=== PATIENT | female | born 1950 | race Caucasian/White ===

== ENCOUNTER 2020-01-09 15:19 | Outpatient (CLI) | payer MEDICARE, SELFPAY ==
--- NOTE | ~2020-01-09 | XR_ITS ---
EXAMINATION: XR knee RT 3V EXAM DATE: 01/09/2020 15:42 INDICATION: Diffuse right knee pain since Thursday, unable to bear weight. TECHNIQUE: Right knee frontal, crosstable lateral, orthogonal oblique projections for interpretation . Comparison is made to prior examination from 04/24/2016. FINDINGS: There is severe right patellofemoral compartment, moderate tibiofemoral compartment primar y osteoarthritis. There are no acute fractures or dislocations identified. There is no subcutaneous gas. Small joint effusion. There are no radiopaque foreign bodies. IMPRESSION: 1. Right knee exam without acute osseous findings. 2. Osteoarthritis. Reviewed, dictated and finalized at location A.
== END 2020-01-09 15:20 | disposition home or self-care (01) ==
LOC: CHSIMG 15:20
PROVIDERS: PCP Family Medicine; Visit Provider Family Medicine
DX: M25.561 Pain in right knee (principal)
CPT/HCPCS: 73562

== ENCOUNTER 2020-02-20 13:45 | Emergency (ER) | payer MEDICARE, SELFPAY ==
[2020-02-20 14:04] VITALS: BP 164/88; PULSE 74; RESP 14; O2SAT 96
--- NOTE | 2020-02-20 14:08 | ED.WOUNDLAC ---
HPI - Wound/Laceration General Chief Complaint: Wound/Laceration Stated Complaint: cut r foot Time Seen by Provider: 02/20/20 14:04 Source: patient and RN notes reviewed Mode of arrival: ambulatory Limitations: no limitations History of Present Illness Onset (ago): day(s) (1) Extremity Location: Right: foot Place: outdoors Patient tetanus UTD: Yes Context: accidental Associated symptoms: pain Treatments prior to arrival: bandage Related Data Home Medications Medication Instructions Recorded Confirmed buspirone 10 mg tablet 10 mg PO TID 10/25/19 02/20/20 duloxetine 60 mg capsule,delayed 120 mg PO DAILY cap 10/25/19 02/20/20 release omeprazole 20 mg capsule,delayed 20 mg PO BID 10/25/19 02/20/20 release Allergies Allergy/AdvReac Type Severity Reaction Status Date / Time Sulfa (Sulfonamide Allergy Unknown Unknown Verified 01/09/20 12:05 Antibiotics) Review of Systems Review of Systems: All systems reviewed & are unremarkable except as noted in HPI and below PMFSH Past Medical History Medical History Depression GERD (gastroesophageal reflux disease) History of peptic ulcer Hyperlipidemia Hypertension Iron deficiency anemia Low vitamin D level Osteoporosis Overweight Prediabetes Surgical History Surgical History History of hysterectomy 1986 History of knee replacement Left Knee December 2013 Family History Family History Mother Family history of hypercholesterolemia Hypertension Family history of cardiovascular disease Sibling Family history of blood dyscrasia Social History Social History Smoking status: Never smoker Alcohol intake: never Exam Const: General: healthy appearing, no acute distress and alert Nutritional Appearance: well nourished Orientation/consciousness: patient oriented x3 HENMT: Head: normal to inspection Ears: external ears normal General nose exam: Normal external nose present Face and sinus: normal facial exam Mouth: Yes lip normal Eyes: Conjunctivae: conjunctivae normal Pupils: Equal, round and reactive pupils present EOM: EOMs intact bilaterally Neck: Neck: normal visual inspection Resp: Effort & Inspection: normal respiratory effort Auscultation: clear to auscultation bilaterally Cardio: Rate: regular rate Rhythm: regular rhythm GI: Auscultation: normal bowel sounds Back/Spine/Pelvis: Cervical Spine: cervical ROM normal Thoracic/Lumbar Spine: thoraco-lumbar ROM normal Skin: Wounds: wounds noted laceration right mid foot size (2 cm); no drainage and without any surrounding erythema Neuro: General: patient oriented x3, moves all extremities and no focal motor deficits Speech: normal speech Gait exam (Neuro): Normal gait present Extrem: General: normal to inspection Psych: Appearance: grossly normal and well kempt Mental Status: mental status grossly normal Attitude: cooperative Thought content: Yes Normal thought content present Course Course Emergency Course: I advised patient that the wound could not be closed since it is more than 6 hours old. I did gently place a half-inch Steri-Strips across the wound. The wound was not completely close. This allows for drainage and washing. Discharge Plan Discharge Prescriptions: No Action omeprazole 20 mg capsule,delayed release(DR/EC) 20 mg PO BID RF: 0 buspirone 10 mg tablet 10 mg PO TID RF: 0 duloxetine [Cymbalta] 60 mg capsule,delayed release(DR/EC) 120 mg PO DAILY RF: 0 hydrocodone-acetaminophen [[place]] 5-325 mg tablet 1 tablet PO Q8H PRN (Reason: pain) Qty: 15 RF: 0 fluticasone propionate 50 mcg/actuation spray,suspension 1 spray NASAL DAILY Qty: 15.8 RF: 3 lisinopril-hydrochlorothiazide 20-25 mg tablet 1 tablet PO DAILY Qty: 90 RF:
[2020-02-20 14:28] VITALS: RESP 20
== END 2020-02-20 14:29 | disposition home or self-care (01) ==
PROVIDERS: Emergency Provider Emergency Medicine; PCP Family Medicine
DX: S91.312A Laceration without foreign body, left foot, initial encounter (principal); W45.8XXA Other foreign body or object entering through skin, initial encounter
CPT/HCPCS: 99282

== ENCOUNTER 2020-05-07 14:29 | Outpatient (CLI) | payer MEDICARE, SELFPAY ==
[2020-05-07 14:54] LABS: Basophils Absolute Auto 0.06 K/mm3 (0.00-0.10); Basophils Percent Auto 0.7 % (0.0-1.0); Eosinophils Absolute Auto 0.51 K/mm3 (0.02-0.50); Eosinophils Percent Auto 5.7 % (1.0-6.0); Hematocrit 41.2 % (35.0-42.0); Immature Granulocyte Absolute 0.05 K/mm3 (0.00-0.00); Immature Granulocyte Percent A 0.6 % (0.0-0.0); Lymphocytes Absolute Auto 3.16 K/mm3 (1.10-4.50); Lymphocytes Percent Auto 35.5 % (18.0-42.0); Mean Corpuscular Hemoglobin 32.2 pg (27.0-31.0); Mean Corpuscular Volume 94.7 fL (78.0-102.0); Mean Platelet Volume 9.4 fl (9.2-11.8); Monocytes Absolute Auto 0.87 K/mm3 (0.10-0.90); Monocytes Percent Auto 9.8 % (2.0-11.0); Neutrophils Absolute Auto 4.3 K/mm3 (1.7-7.2); Neutrophils Percent Auto 47.7 % (50.0-70.0); Platelet Count Result 417 K/mm3 (150-420); Red Blood Count 4.35 M/mm3 (4.20-5.40); Red Cell Distribution Width 11.6 % (11.6-14.4); White Blood Count 8.9 K/mm3 (4.8-10.8)
[2020-05-07 14:55] LABS: Add Urine Microscopic? YES; Appearance Urine Clear (Clear); Bilirubin Urine Negative (Negative); Blood Urine Negative (Negative); Color Urine Yellow (Yellow); Glucose Urine UA Negative (Negative); Ketones Urine Negative (Negative); Leukocyte Esterase Ur 1+ (Negative); Nitrate Urine Negative (Negative); Protein Urine Negative (Negative); Urobilinogen Urine 0.2 mg/dL (0.2-1.0); pH Urine 5.5 (5.0-8.0)
[2020-05-07 15:09] LABS: RBC Urine 0-2 /hpf (0-2); WBC Urine 16-20 /hpf (0-3)
[2020-05-07 15:10] LABS: Bacteria Urine 1+ /hpf; Squamous Epithelial Cell Urine Few /hpf (Few)
[2020-05-07 15:42] LABS: Alanine Aminotransferase 34 U/L (14-59); Albumin Level 3.8 g/dL (3.4-5.0); Alkaline Phosphatase 177 U/L (46-116); Anion Gap 8 mmol/L (8-16); Aspartate Amino Transferase 19 U/L (15-37); Bilirubin,Total 0.3 mg/dL (0.00-1.00); Blood Urea Nitrogen 39 mg/dL (7-18); Calcium 9.5 mg/dL (8.5-10.1); Carbon Dioxide 29 mmol/L (21-32); Chloride 102 mmol/L (98-108); Estimated Glomerular Filt Rate 53; Glucose 83 mg/dL (70-99); Osmolality Calculated 296 mOsm/kg (285-295); Potassium 4.7 mmol/L (3.5-5.1); Sodium 139 mmol/L (136-145); Total Protein 7.3 g/dL (6.4-8.2)
== END 2020-05-07 14:30 | disposition home or self-care (01) ==
LOC: CHSLAB 14:34
PROVIDERS: PCP Family Medicine
DX: K21.9 Gastro-esophageal reflux disease without esophagitis (principal); E78.00 Pure hypercholesterolemia, unspecified; E78.5 Hyperlipidemia, unspecified; I10 Essential (primary) hypertension; E61.1 Iron deficiency; E53.8 Deficiency of other specified B group vitamins; E66.9 Obesity, unspecified; M85.80 Other specified disorders of bone density and structure, unspecified site; M81.0 Age-related osteoporosis without current pathological fracture; Z01.812 Encounter for preprocedural laboratory examination; R73.03 Prediabetes; E55.9 Vitamin D deficiency, unspecified
CPT/HCPCS: 36415; 80053; 81001; 85025

== ENCOUNTER 2020-05-25 10:20 | Outpatient (CLI) | payer MEDICARE, SELFPAY ==
[2020-05-26 18:02] LABS: SARS-CoV-2 RNA PCR Negative
== END 2020-05-25 10:21 | disposition home or self-care (01) ==
PROVIDERS: PCP Family Medicine
DX: Z20.828 Contact with and (suspected) exposure to other viral communicable diseases (principal)
CPT/HCPCS: 87635; C9803; U0003

== ENCOUNTER 2020-06-18 09:44 | Outpatient (CLI) | payer MEDICARE, SELFPAY ==
[2020-06-18 09:58] LABS: Hematocrit 38.8 % (35.0-42.0); Mean Corpuscular HGB Conc 33.5 g/dL (32.0-36.0); Mean Corpuscular Hemoglobin 31.3 pg (27.0-31.0); Mean Corpuscular Volume 93.3 fL (78.0-102.0); Mean Platelet Volume 8.9 fl (9.2-11.8); Platelet Count Result 500 K/mm3 (150-420); Red Blood Count 4.16 M/mm3 (4.20-5.40); White Blood Count 8.7 K/mm3 (4.8-10.8)
[2020-06-18 10:53] LABS: Alanine Aminotransferase 35 U/L (14-59); Albumin Level 3.8 g/dL (3.4-5.0); Alkaline Phosphatase 132 U/L (46-116); Anion Gap 13 mmol/L (8-16); Aspartate Amino Transferase 16 U/L (15-37); Bilirubin,Total 0.3 mg/dL (0.00-1.00); Blood Urea Nitrogen 20 mg/dL (7-18); Calcium 9.3 mg/dL (8.5-10.1); Carbon Dioxide 23 mmol/L (21-32); Chloride 105 mmol/L (98-108); Estimated Glomerular Filt Rate > 60; Ferritin 94 ng/mL (8-252); Glucose 103 mg/dL (70-99); Osmolality Calculated 294 mOsm/kg (285-295); Potassium 3.9 mmol/L (3.5-5.1); Sodium 141 mmol/L (136-145); Total Protein 6.8 g/dL (6.4-8.2); Vitamin B12 1508 pg/mL (193-986)
[2020-06-18 10:54] LABS: Folic Acid > 20.0 ng/mL (8.6->20)
== END 2020-06-18 09:45 | disposition home or self-care (01) ==
LOC: CHSLAB 09:49
PROVIDERS: PCP Family Medicine; Visit Provider Family Medicine
DX: Z98.84 Bariatric surgery status (principal); Z09 Encounter for follow-up examination after completed treatment for conditions other than malignant neoplasm; E61.1 Iron deficiency; I10 Essential (primary) hypertension
CPT/HCPCS: 36415; 80053; 82607; 82728; 82746; 85027

== ENCOUNTER 2020-08-31 12:42 | Emergency (ER) | payer MEDICARE, SELFPAY ==
--- NOTE | ~2020-08-31 | CT_ITS ---
EXAMINATION: CT abdomen pelvis w con DATE: 08/31/2020 15:09 INDICATION: Abdominal pain for 3 months post gastric bypass surgery. Hematuria. TECHNIQUE: Computed tomography (CT) of the abdomen and pelvis was performed with 100 cc Omnipaque 350 intravenous contrast. Automated exposure control and iterative reconstruction technique were employe d. Exam dose: 820.74 mGy-cm total exam DLP. COMPARISON: 02/17/2019 CT abdomen pelvis FINDINGS: The lung bases are clear of infiltrate or consolidation. Heart size is within normal range. There is no pericardial or pleural effusion. Noxp-yo-[id number] size hiatal hernia. There is fluid distention of the distal esophagus with circumfer ential esophageal wall soft tissue thickening suggesting esophagitis. No hepatic space-occupying mass lesion is evident. The gallbladder is distended, with nonuniform bord leonardo thickening and mild nodularity of the gallbladder wall. No pericholecystic fluid or fat strand ing. Consider gallbladder ultrasound for more definitive evaluation of the gallbladder. Normal splenic size. No pancreatic mass lesion or ductal dilatation. No bile duct dilatation. Normal morphology of the adrenal glands. No renal space occupying mass lesion is detected. No urinary tract calculus or hydroureteronephrosis. Normal caliber of the abdominal aorta. No intraperitoneal or retroperitoneal or pelvic mass lesion or adenopathy or ascites. Postoperative change from gastric bypass surgery. There are multiple transverse and particularly descending and sigmoid colonic diverticula; no CT evid ence of diverticulitis. No bowel obstruction, bowel wall thickening, pneumatosis or intraperitoneal f ree air. Small fat-containing umbilical hernia. Status post hysterectomy. There is apparent mucosal enhancement of the urinary bladder; consider cyst itis. Recommend correlation with urinalysis. No intraluminal filling defect of the urinary bladder is evident. Chronic mild L1 compression fracture deformity. Degenerative changes apophyseal joints with associated grade 1 minimal anterolisthesis at L4-5. Posterior spinal process fusion at L4-5. IMPRESSION: Modified sized hiatal hernia Fluid distended distal esophagus with circumferential esophageal wall soft tissue thickening suggesti ng esophagitis Distended gallbladder with borderline patchy soft tissue thickening and nodularity of the gallbladder wall. Consider gallbladder ultrasound examination Status post gastric bypass surgery Status post hysterectomy Mucosal enhancement of the urinary bladder suggesting cystitis; consider correlation with urinalysis Diverticulosis of the colon; no CT evidence of diverticulitis Reviewed, dictated and finalized at Location A. Reviewed, dictated and finalized at location B. SURVEY TECHNICIAN IMPRESSION: Modified sized hiatal hernia Fluid distended distal esophagus with circumferential esophageal wall soft tiss ue thickening suggesting esophagitis Distended gallbladder with borderline patchy soft tissue thickening and nodular ity of the gallbladder wall. Consider gallbladder ultrasound examination Status post gastric bypass surgery Status post hysterectomy Mucosal enhancement of the urinary bladder suggesting cystitis; consider correl ation with urinalysis Diverticulosis of the colon; no CT evidence of diverticulitis
[2020-08-31 12:50] VITALS: BP 161/70; PULSE 74; RESP 16; TEMP 36.6; O2SAT 97
--- NOTE | 2020-08-31 13:47 | ECG_ITS ---
Measurements Intervals [place] Rate: 72 P: 49 GA: 144 QRS: -26 QRSD: 88 T: 60 QT: 307 QTc: 336 Interpretive Statements SINUS RHYTHM DELAYED PRECORDIAL R/S TRANSITION NONSPECIFIC ST & T-WAVE ABNORMALITY- INF/HIGH LAT LEADS BASELINE ARTIFACT- II, III, AVF BORDERLINE ECG Electronically Signed On 08-31-2020 14:24:17 SERVICENOW ADMINISTRATOR DEVELOPER by Chad Hu D.O.
[2020-08-31] MEDS: MAG HYDROX/ALUMINUM HYD/SIMETH 30 ML, PHENobarb/HYOSCY/ATROPINE/SCOP 32.4 MG, LIDOCAINE... PO (14:06)
[2020-08-31 14:09] LABS: Add Urine Microscopic? YES; Appearance Urine Cloudy (Clear); Bilirubin Urine 1+ (Negative); Blood Urine 1+ (Negative); Color Urine Yellow (Yellow); Glucose Urine UA Negative (Negative); Ketones Urine 3+ (Negative); Leukocyte Esterase Ur 2+ LEU/UL (Negative); Nitrate Urine Positive (Negative); Protein Urine 2+ (Negative); Specific Grav Ur >= 1.030 (1.010-1.020); pH Urine 6.5 (5.0-8.0)
[2020-08-31] MEDS: DEXTROSE 5%/0.9% SOD CHL 1,000 ML 1000 ML IV CONT (14:10)
[2020-08-31 14:12] LABS: WBC Urine >75 /hpf (0-3)
[2020-08-31 14:13] LABS: Bacteria Urine Trace /hpf; Squamous Epithelial Cell Urine Few /hpf (Few)
[2020-08-31 14:24] LABS: Basophils Absolute Auto 0.05 K/mm3 (0.00-0.10); Basophils Percent Auto 0.5 % (0.0-1.0); Eosinophils Absolute Auto 0.37 K/mm3 (0.02-0.50); Eosinophils Percent Auto 3.4 % (1.0-6.0); Hematocrit 42.5 % (35.0-42.0); Hemoglobin 14.6 g/dL (11.7-13.8); Immature Granulocyte Absolute 0.02 K/mm3 (0.00-0.00); Immature Granulocyte Percent A 0.2 % (0.0-0.0); Lymphocytes Absolute Auto 4.06 K/mm3 (1.10-4.50); Lymphocytes Percent Auto 36.8 % (18.0-42.0); Mean Corpuscular HGB Conc 34.4 g/dL (32.0-36.0); Mean Corpuscular Hemoglobin 31.4 pg (27.0-31.0); Mean Corpuscular Volume 91.4 fL (78.0-102.0); Mean Platelet Volume 10.2 fl (9.2-11.8); Monocytes Absolute Auto 0.76 K/mm3 (0.10-0.90); Monocytes Percent Auto 6.9 % (2.0-11.0); Neutrophils Absolute Auto 5.8 K/mm3 (1.7-7.2); Neutrophils Percent Auto 52.2 % (50.0-70.0); Platelet Count Result 321 K/mm3 (150-420); Red Blood Count 4.65 M/mm3 (4.20-5.40); Red Cell Distribution Width 11.9 % (11.6-14.4)
[2020-08-31 14:36] LABS: Partial Thromboplastin Time 27.4 SEC (23.90-30.70); Prothrombin Time 11.1 Seconds (9.50-12.10)
[2020-08-31 14:38] LABS: Alanine Aminotransferase 25 U/L (14-59); Albumin Level 4.1 g/dL (3.4-5.0); Alkaline Phosphatase 116 U/L (46-116); Anion Gap 12 mmol/L (8-16); Aspartate Amino Transferase 15 U/L (15-37); Bilirubin,Total 0.5 mg/dL (0.00-1.00); Blood Urea Nitrogen 21 mg/dL (7-18); Calcium 9.6 mg/dL (8.5-10.1); Carbon Dioxide 23 mmol/L (21-32); Chloride 102 mmol/L (98-108); Estimated Glomerular Filt Rate > 60; Glucose 83 mg/dL (70-99); Lipase 44 U/L (73-393); Osmolality Calculated 286 mOsm/kg (285-295); Potassium 3.6 mmol/L (3.5-5.1); Sodium 137 mmol/L (136-145); Total Protein 7.2 g/dL (6.4-8.2); Troponin I 7.7 ng/L (0.00-60.4)
--- NOTE | 2020-08-31 15:16 | ED.GENADULT ---
HPI - General Adult General Chief complaint: Unspecified Stated complaint: 70YO female w/ known h/o Gastric bypass approx 3 months ([facility] at [facility] in [place]) here c/o 4 day h.o epigastric dyscomfort and dysphagia associated w/ no appetite since thursday can't eat or drink Related Data Home Medications Medication Instructions Recorded Confirmed buspirone 10 mg tablet 10 mg PO TID 10/25/19 02/20/20 duloxetine 60 mg capsule,delayed 120 mg PO DAILY cap 10/25/19 02/20/20 release calcium citrate malate-vitamin D3 tablet PO TID tablet 06/18/20 500 mg-200 unit tablet iron,carbonyl 65 mg-vitamin C 125 1 tablet PO DAILY 06/18/20 mg tablet,delayed release latanoprost 0.005 % eye drops 1 drop EACH EYE .Bedtime ml 06/18/20 mecobalamin (vitamin B12) 1,000 1,000 mcg PO DAILY 06/18/20 mcg chewable tablet multivitamin 1 tablet PO TID tablet 06/18/20 omeprazole magnesium 20 mg 20 mg PO DAILY 06/18/20 tablet,delayed release timolol maleate 0.25 % eye drops 1 drop EACH EYE .Bedtime ml 06/18/20 travoprost 0.004 % eye drops 1 drop EACH EYE QPM 06/18/20 Allergies Allergy/AdvReac Type Severity Reaction Status Date / Time Sulfa (Sulfonamide Allergy Unknown Unknown Verified 06/18/20 07:33 Antibiotics) Review of Systems Review of Systems: All systems reviewed & are unremarkable except as noted in HPI and below Constitutional: Constitutional: Reports no additional constitutional complaints Eyes: Eyes: Reports no additional eye complaints ENT: Reports system reviewed and no additional complaints, except as documented Cardiovascular: Cardiovascular: Reports no additional cardiovascular complaints Respiratory: Respiratory: Reports no additional respiratory complaints Gastrointestinal: Gastrointestinal: Reports abdominal pain, Reports dysphagia, Reports dyspepsia, Reports nausea, Reports odynophagia and Reports vomiting Genitourinary: Genitourinary: Reports no additional female genitourinary complaints Musculoskeletal: Musculoskeletal: Reports no additional musculoskeletal complaints Integumentary/Breasts: Skin/Breast: Reports system reviewed and no additional complaints, except as docu Neurologic: Reports system reviewed and no additional complaints, except as documented Psychiatric: Psychiatric: Reports no additional psychiatric complaints Endocrine: Endocrine: Reports no additional endocrine complaints Hematologic/Lymphatic: Hematologic/Lymphatic: Reports no additional hematologic/lymphatic complaints Allergic/Immunologic: Allergic/Immunologic: Reports no additional allergic/immunologic complaints PMFSH Past Medical History Medical History Depression GERD (gastroesophageal reflux disease) History of peptic ulcer Hyperlipidemia Hypertension Iron deficiency anemia Low vitamin D level Osteoporosis Overweight Prediabetes Surgical History Surgical History H/O gastric bypass History of hysterectomy 1986 History of knee replacement Left Knee December 2013 Family History Family History Mother Family history of hypercholesterolemia Hypertension Family history of cardiovascular disease Sibling Family history of blood dyscrasia Social History Social History Smoking status: Never smoker Alcohol intake: never Exam Const: General: cooperative, healthy appearing, comfortable, no acute distress, alert, awake and Physically active Nutritional Appearance: average body habitus, well nourished and overweight Orientation/consciousness: oriented to person, oriented to place, oriented to time and patient oriented x3 HENMT: Head: normal to inspection Mouth: Yes Normal oral and palatal mucosa present and Yes dry mucous membranes Throat: tonsils normal Eyes: General
--- NOTE | 2020-08-31 16:08 | PC.NURSE ---
PT WALKS TO BATHROOM, WHILE COMING BACK PT HOLDING IV IN HAND STATES IT FELL OUT. PT ASKING FOR ICE WATER, REMINDED THAT SHE SHOULDN'T HAVE ICE WATER IF SHE CANNOT SWALLOW.
[2020-08-31] MEDS: PANTOPRAZOLE SODIUM IV 40 MG VIAL 80 MG IV PUSH (17:57)
[2020-08-31 18:27] VITALS: BP 169/72; PULSE 89; RESP 15; O2SAT 98
--- NOTE | 2020-08-31 18:30 | PC.NURSE ---
IV FLUIDS INFUSING ON TRANSFER - PT STATES SHE IS UNABLE TO SWALLOW TABLETS - CARAFATE NOT GIVEN
== END 2020-08-31 19:00 | disposition short-term general hospital (02) ==
PROVIDERS: Emergency Provider Family Medicine; PCP Family Medicine
DX: K20.90 Esophagitis, unspecified without bleeding (principal); K44.9 Diaphragmatic hernia without obstruction or gangrene; E78.5 Hyperlipidemia, unspecified; I10 Essential (primary) hypertension; M81.0 Age-related osteoporosis without current pathological fracture
CPT/HCPCS: 36415; 74177; 80053; 81001; 83690; 84484; 85025; 85610; 85730; 87086; 87088; 87147; 87186; 93005; 96361; 96365; 96375; 99285; A9270; C9113; J0696; J7042; Q9965; Q9967

== ENCOUNTER 2020-09-04 16:07 | Outpatient (NON) | payer MEDICARE, SELFPAY | END 2020-09-04 16:08 | LOC: CHSLAB 16:09 | PROVIDERS: Visit Provider Family Medicine | DX: R30.0 Dysuria (principal) | CPT/HCPCS: 87086 ==

== ENCOUNTER 2020-11-22 09:23 | Outpatient (CLI) | payer MEDICARE, SELFPAY ==
[2020-11-22 10:17] LABS: Hemoglobin A1C 5.5 % (<5.7)
[2020-11-22 10:40] LABS: Cholesterol 210 mg/dL (0-200); Ferritin 65 ng/mL (8-252); HDL Direct 65 mg/dL (40-60); Iron 107 ug/dL (50-170); LDL Cholesterol Calculated 115 mg/dL (<130); Percent Iron Saturation 30 % (12-57); Triglycerides 151 mg/dL (0-150)
[2020-11-25 01:54] LABS: Zinc 87 mcg/dL (60-130)
[2020-11-29 10:27] LABS: Prealbumin 26 mg/dL (17-34)
== END 2020-11-22 09:24 | disposition home or self-care (01) ==
LOC: CHSLAB 09:25
PROVIDERS: PCP Family Medicine
DX: K21.9 Gastro-esophageal reflux disease without esophagitis (principal); E78.00 Pure hypercholesterolemia, unspecified; E78.5 Hyperlipidemia, unspecified; I10 Essential (primary) hypertension; K90.9 Intestinal malabsorption, unspecified; E61.1 Iron deficiency; E53.8 Deficiency of other specified B group vitamins; M85.80 Other specified disorders of bone density and structure, unspecified site; E55.9 Vitamin D deficiency, unspecified; Z98.84 Bariatric surgery status; E66.3 Overweight; R73.03 Prediabetes
CPT/HCPCS: 36415; 80061; 82525; 82728; 83036; 83540; 83550; 84134; 84630

== ENCOUNTER 2021-01-19 10:54 | Outpatient (CLI) | payer MEDICARE, SELFPAY ==
[2021-01-19 11:40] LABS: SARS-CoV-2 RNA PCR Negative (Negative)
== END 2021-01-19 10:55 | disposition home or self-care (01) ==
LOC: CHSLAB 10:56
PROVIDERS: PCP Family Medicine; Visit Provider Family Medicine
DX: Z01.818 Encounter for other preprocedural examination (principal); Z20.822 Contact with and (suspected) exposure to COVID-19
CPT/HCPCS: C9803; U0003; U0005

== ENCOUNTER 2021-09-20 11:04 | Outpatient (CLI) | payer MEDICARE, SELFPAY ==
[2021-09-20 11:48] LABS: Basophils Absolute Auto 0.07 K/mm3 (0.00-0.10); Eosinophils Absolute Auto 0.58 K/mm3 (0.02-0.50); Eosinophils Percent Auto 8.2 % (1.0-6.0); Hematocrit 40.4 % (35.0-42.0); Hemoglobin 13.7 g/dL (11.7-13.8); Immature Granulocyte Absolute 0.02 K/mm3 (0.00-0.00); Immature Granulocyte Percent A 0.3 % (0.0-0.0); Lymphocytes Absolute Auto 2.45 K/mm3 (1.10-4.50); Lymphocytes Percent Auto 34.8 % (18.0-42.0); Mean Corpuscular HGB Conc 33.9 g/dL (32.0-36.0); Mean Corpuscular Hemoglobin 31.7 pg (27.0-31.0); Mean Corpuscular Volume 93.5 fL (78.0-102.0); Mean Platelet Volume 9.9 fl (9.2-11.8); Monocytes Absolute Auto 0.52 K/mm3 (0.10-0.90); Monocytes Percent Auto 7.4 % (2.0-11.0); Neutrophils Absolute Auto 3.4 K/mm3 (1.7-7.2); Neutrophils Percent Auto 48.3 % (50.0-70.0); Platelet Count Result 480 K/mm3 (150-420); Red Blood Count 4.32 M/mm3 (4.20-5.40); Red Cell Distribution Width 11.8 % (11.6-14.4); White Blood Count 7.1 K/mm3 (4.8-10.8)
[2021-09-20 11:59] LABS: Hemoglobin A1C 5.5 % (<5.7)
[2021-09-20 13:17] LABS: Alanine Aminotransferase 28 U/L (14-59); Albumin Level 3.8 g/dL (3.4-5.0); Alkaline Phosphatase 207 U/L (46-116); Anion Gap 16 mmol/L (8-16); Aspartate Amino Transferase 20 U/L (15-37); Bilirubin,Total 0.4 mg/dL (0.00-1.00); Blood Urea Nitrogen 11 mg/dL (7-18); Carbon Dioxide 26 mmol/L (21-32); Chloride 103 mmol/L (98-108); Cholesterol 162 mg/dL (0-200); Estimated Glomerular Filt Rate > 60; Ferritin 60 ng/mL (8-252); Folic Acid 15.9 ng/mL (8.6->20); Glucose 94 mg/dL (70-99); HDL Direct 64 mg/dL (40-60); Iron 86 ug/dL (50-170); LDL Cholesterol Calculated 72 mg/dL (<130); Magnesium 1.9 mg/dL (1.8-2.4); Osmolality Calculated 299 mOsm/kg (285-295); Percent Iron Saturation 28 % (12-57); Potassium 3.9 mmol/L (3.5-5.1); Sodium 145 mmol/L (136-145); Total Protein 6.8 g/dL (6.4-8.2); Triglycerides 130 mg/dL (0-150); Vitamin B12 561 pg/mL (193-986)
[2021-09-24 15:57] LABS: Zinc 73 mcg/dL (60-130)
[2021-09-25 02:41] LABS: Prealbumin 20 mg/dL (17-34)
[2021-09-25 04:33] LABS: Vitamin D 25 Hydroxy 41 ng/mL (30-100)
[2021-09-25 18:11] LABS: Vitamin B1 24 nmol/L (8-30)
== END 2021-09-20 11:05 | disposition home or self-care (01) ==
PROVIDERS: PCP Family Medicine
DX: I10 Essential (primary) hypertension (principal); K21.9 Gastro-esophageal reflux disease without esophagitis; K44.9 Diaphragmatic hernia without obstruction or gangrene; K90.9 Intestinal malabsorption, unspecified; K28.9 Gastrojejunal ulcer, unspecified as acute or chronic, without hemorrhage or perforation; E55.9 Vitamin D deficiency, unspecified; E78.00 Pure hypercholesterolemia, unspecified; E78.5 Hyperlipidemia, unspecified; E61.1 Iron deficiency; E53.8 Deficiency of other specified B group vitamins; E66.3 Overweight; R73.03 Prediabetes; R74.9 Abnormal serum enzyme level, unspecified; R11.0 Nausea; Z98.84 Bariatric surgery status
CPT/HCPCS: 36415; 80053; 80061; 82306; 82525; 82607; 82728; 82746; 83036; 83540; 83550; 83735; 84134; 84425; 84630; 85025

== ENCOUNTER 2021-10-13 09:10 | Emergency (ER) | payer MEDICARE, SELFPAY ==
--- NOTE | ~2021-10-13 | XR_ITS ---
EXAMINATION: XR chest 1V portable DATE: 10/13/2021 10:15 INDICATION: Chest pain. TECHNIQUE: A single frontal view of the chest was obtained on 2 radiographs. COMPARISON: Chest 2 views 10/07/2019, CT abdomen and pelvis 08/31/2020 FINDINGS: A calcified right lung nodule is consistent with old granulomatous disease. No pleural effu cecil or pneumothorax. The heart size is normal. IMPRESSION: 1. No acute cardiopulmonary disease. Reviewed, dictated and finalized at location A. ER FITTER
[2021-10-13 09:35] VITALS: BP 160/86; PULSE 60; RESP 18; TEMP 36.6; O2SAT 97
--- NOTE | 2021-10-13 09:38 | ECG_ITS ---
Measurements Intervals [place] Rate: 51 P: 8 [place]: 161 QRS: -18 QRSD: 93 T: 28 QT: 429 QTc: 398 Interpretive Statements SINUS BRADYCARDIA WITH SINUS ARRHYTHMIA DELAYED PRECORDIAL R/S TRANSITION LEFT VENTRICULAR HYPERTROPHY BORDERLINE ECG Electronically Signed On 10-14-2021 8:31:55 SCHEDULING COORDINATOR by Chad Hu D.O.
[2021-10-13] MEDS: ASPIRIN 81 MG CHEWABLE TABLET 324 MG PO (10:22)
[2021-10-13 10:37] LABS: Basophils Absolute Auto 0.05 K/mm3 (0.00-0.10); Basophils Percent Auto 0.6 % (0.0-1.0); Eosinophils Absolute Auto 0.82 K/mm3 (0.02-0.50); Eosinophils Percent Auto 9.6 % (1.0-6.0); Hematocrit 38.6 % (35.0-42.0); Hemoglobin 12.9 g/dL (11.7-13.8); Immature Granulocyte Absolute 0.02 K/mm3 (0.00-0.00); Immature Granulocyte Percent A 0.2 % (0.0-0.0); Lymphocytes Absolute Auto 2.82 K/mm3 (1.10-4.50); Lymphocytes Percent Auto 32.9 % (18.0-42.0); Mean Corpuscular HGB Conc 33.4 g/dL (32.0-36.0); Mean Corpuscular Hemoglobin 31.6 pg (27.0-31.0); Mean Corpuscular Volume 94.6 fL (78.0-102.0); Mean Platelet Volume 9.6 fl (9.2-11.8); Monocytes Absolute Auto 0.78 K/mm3 (0.10-0.90); Monocytes Percent Auto 9.1 % (2.0-11.0); Neutrophils Absolute Auto 4.1 K/mm3 (1.7-7.2); Neutrophils Percent Auto 47.6 % (50.0-70.0); Platelet Count Result 378 K/mm3 (150-420); Red Blood Count 4.08 M/mm3 (4.20-5.40); Red Cell Distribution Width 11.9 % (11.6-14.4); White Blood Count 8.6 K/mm3 (4.8-10.8)
[2021-10-13 11:00] LABS: Alanine Aminotransferase 30 U/L (14-59); Albumin Level 3.4 g/dL (3.4-5.0); Alkaline Phosphatase 192 U/L (46-116); Anion Gap 9 mmol/L (8-16); Aspartate Amino Transferase 24 U/L (15-37); Bilirubin,Total 0.4 mg/dL (0.00-1.00); Blood Urea Nitrogen 13 mg/dL (7-18); Calcium 8.7 mg/dL (8.5-10.1); Carbon Dioxide 28 mmol/L (21-32); Chloride 103 mmol/L (98-108); Estimated CRCL calculation 59 ml/min; Estimated Glomerular Filt Rate > 60; Glucose 99 mg/dL (70-99); Osmolality Calculated 290 mOsm/kg (285-295); Potassium 3.9 mmol/L (3.5-5.1); Sodium 140 mmol/L (136-145); Total Protein 6.4 g/dL (6.4-8.2); Troponin I 5.4 ng/L (0.00-60.4)
--- NOTE | 2021-10-13 11:08 | ED.GENADULT ---
HPI - General Adult General Chief complaint: Unspecified Stated complaint: Elevated high blood pressure Time Seen by Provider: 10/13/21 09:15 Source: patient and RN notes reviewed Mode of arrival: ambulatory Limitations: no limitations History of Present Illness complaint: elevated BP at home x 2 days. mild chest tightness x 6 weeks. Onset (ago): day(s) (2) Location: chest Radiation: non-radiation Severity: mild Severity scale (1-10): 2 Quality: other (pt denied acute chest pain) Pain Consistency: constant Relieving factors: none Exacerbating factors: none Treatments prior to arrival: aspirin Related Data Home Medications Medication Instructions Recorded Confirmed duloxetine 60 mg capsule,delayed 120 mg PO DAILY cap 10/25/19 02/20/20 release calcium citrate malate-vitamin D3 tablet PO TID tablet 06/18/20 500 mg-200 unit tablet latanoprost 0.005 % eye drops 1 drop EACH EYE .Bedtime ml 06/18/20 mecobalamin (vitamin B12) 1,000 1,000 mcg PO DAILY 06/18/20 mcg chewable tablet multivitamin 1 tablet PO TID tablet 06/18/20 timolol maleate 0.25 % eye drops 1 drop EACH EYE .Bedtime ml 06/18/20 travoprost 0.004 % eye drops 1 drop EACH EYE QPM 06/18/20 Allergies Allergy/AdvReac Type Severity Reaction Status Date / Time Sulfa (Sulfonamide Allergy Unknown Unknown Verified 10/10/21 07:06 Antibiotics) Review of Systems Review of Systems: All systems reviewed & are unremarkable except as noted in HPI and below PMFSH Past Medical History Medical History Depression GERD (gastroesophageal reflux disease) History of peptic ulcer Hyperlipidemia Hypertension Iron deficiency anemia Low vitamin D level Osteoporosis Overweight Prediabetes Surgical History Surgical History H/O gastric bypass History of hysterectomy 1986 History of knee replacement Left Knee December 2013 Family History Family History Mother Family history of hypercholesterolemia Hypertension Family history of cardiovascular disease Sibling Family history of blood dyscrasia Social History Social History Smoking status: Never smoker Alcohol intake: never Exam Const: General: cooperative, healthy appearing and comfortable Orientation/consciousness: oriented to person and patient oriented x3 HENMT: Head: normal to inspection, normocephalic and atraumatic Ears: hearing grossly normal bilaterally, external ears normal and TM's normal bilaterally General nose exam: Normal external nose present and Normal nares present Face and sinus: normal facial exam and sinuses nontender Mouth: Yes Normal oral and palatal mucosa present, Yes lip normal, Yes tongue normal, Yes oropharynx normal and Yes moist mucous membranes Throat: posterior oropharynx normal Eyes: General: appearance normal, both eyes and all related structures Eyelids: eyelids normal Conjunctivae: conjunctivae normal Sclera: sclerae normal Cornea: corneas normal Pupils: Equal, round and reactive pupils present EOM: EOMs intact bilaterally Neck: Neck: normal visual inspection and full ROM Chest: Chest palpation & inspection: normal inspection of the chest Resp: Effort & Inspection: normal respiratory effort and able to speak in complete sentences Auscultation: clear to auscultation bilaterally Cardio: Jugular venous distension: no JVD Rate: regular rate Rhythm: regular rhythm Peripheral pulses: Peripheral pulses 2+ throughout GI: Inspection: normal to inspection GI Palp: No abdominal tenderness Auscultation: normal bowel sounds : General: Yes bladder normal to inspection and Yes bladder normal to palpation Back/Spine/Pelvis: Back: no CVA tenderness Thoracic/Lumbar Spine: thoracic and lumbar spine normal to inspection Skin:
[2021-10-13 11:26] VITALS: BP 155/80; PULSE 50; RESP 16; O2SAT 98
== END 2021-10-13 11:31 | disposition home or self-care (01) ==
PROVIDERS: Emergency Provider Emergency Medicine; PCP Family Medicine
DX: I10 Essential (primary) hypertension (principal); K21.9 Gastro-esophageal reflux disease without esophagitis; E78.5 Hyperlipidemia, unspecified; M81.0 Age-related osteoporosis without current pathological fracture
CPT/HCPCS: 36415; 71045; 80053; 84484; 85025; 93005; 99283; 99284; A9270

== ENCOUNTER 2021-11-06 09:44 | Outpatient (CLI) | payer MEDICARE, SELFPAY ==
--- NOTE | ~2021-11-06 | DEXA_ITS ---
Bone Density Report Name: NOHELIA BENNETT Age: 71 Sex: Female Ethnicity: White Date of : 1950 Indication: postmenopausal; screening for osteoporosis; height loss; prior fracture; hysterectomy; Referring Provider: Pio Mike Study: Bone densitometry was performed. Exam Date: November 06, 2021 Accession number: [id number] Bone Density: Region BMD T-score Z-score Classification AP Spine(L1, L2, L3) 0.804 -1.9 0.2 Osteopenia Femoral Neck (Left) 0.547 -2.7 -0.8 Osteoporosis Total Hip (Left) 0.611 -2.7 -1.1 Osteoporosis Femoral Neck (Right) 0.639 -1.9 0.0 Osteopenia Total Hip (Right) 0.675 -2.2 -0.6 Osteopenia Femoral Neck Mean 0.593 -2.3 -0.4 Osteopenia Total Hip Mean 0.643 -2.4 -0.9 Osteopenia World Health Organization criteria for BMD impression classify patients as: Normal (T-score at or above -1.0), Osteopenia (T-score between -1.0 and -2.5), or Osteoporosis (T-score at or below -2.5). 10-year Fracture Risk: FRAX not reported because: Some T-score for Spine Total or Hip Total or Femoral Neck at or below -2.5 Clinical Information Provided by Patient: Has had a low trauma fracture Has used the following medications: Vitamin D, Calcium Has the following medical conditions: Hysterectomy Patient maximum height was 65 Menopause Age: 38 Drinks caffeinated beverages Onset of menses at age 10 Number of children 2 Impression: The patient has established osteoporosis, based on the Left Total Hip T-score and the existence of a prior fracture. The patient has risk factors, including: previous fracture. Discussion: HIGH RISK OF FRACTURE. BONE DENSITY IS UNDESIRABLY LOW AT ONE OR MORE SKELETAL SITES, CONSISTENT WITH POSTMENOPAUSAL OSTEOPOROSIS. This patient's lowest T-score, in a patient who has previously fractured, meets the World Health Organization's (WHO) criteria for severe osteoporosis. In untreated patients, the risk of osteoporotic fracture increases approximately two-fold for each 1.0 SD decrease in T-score. Low bone density is not the only risk factor for fracture; also consider factors such as patient's age, frailty or poor health, risk of falling, risk of injury, previous osteoporotic fracture, family history of osteoporosis, cigarette smoking, low body weight, etc. Not everyone with low bone mineral density has osteoporosis; osteomalacia and other metabolic bone disorders should also be considered. Patients who have osteoporosis should be evaluated for specific diseases and conditions (secondary causes) that may cause or contribute to bone loss. The [place] [employer] Endocrinologists (AACE) and National Osteoporosis Foundation (NOF) recommend pharmacologic intervention for all postmenopausal women whose T-score is in this range. The patient should follow a h
--- NOTE | ~2021-11-06 | MM_ITS ---
EXAMINATION: MM screening stefani BI w haider HISTORY: Screening mammogram TECHNIQUE: Craniocaudal and mediolateral oblique 3-D tomosynthesis images were obtained and synthetic 2-D images were generated. CAD analysis was submitted and interpreted. COMPARISON: 12/03/2018 diagnostic left mammogram and left breast ultrasound 11/18/2018, 10/10/2016 bilateral screening mammogram examinations BREAST PARENCHYMAL COMPOSITION: There are scattered areas of fibroglandular density. FINDINGS: Scattered bilateral benign calcifications, primarily calcified microhematomas. There is fibroglandular asymmetry, due to in part to previous left breast biopsy. Prostate 4.7 x 7.2 mm opacity in the very posteromedial aspect of the left breast on CC projection, n ot evident on prior examinations. Diagnostic left mammogram is recommended, with ultrasound if requir ed. Otherwise there is no evidence of suspicious mass, calcification, or architectural distortion to sugg est malignancy in either breast. There has been no other suspicious interval change. IMPRESSION: 1. New mass density is very posteromedial aspect of left breast on craniocaudal view 2. Diagnostic left mammogram is recommended, with ultrasound if required BI-RADS Category 0: Incomplete: Needs additional imaging evaluation. Reviewed, dictated and finalized at location A. S CUTTER
== END 2021-11-06 09:45 | disposition home or self-care (01) ==
LOC: CHSIMG 09:45
PROVIDERS: PCP Family Medicine; Visit Provider Family Medicine
DX: Z78.0 Asymptomatic menopausal state (principal); Z12.31 Encounter for screening mammogram for malignant neoplasm of breast
CPT/HCPCS: 77063; 77067; 77080

== ENCOUNTER 2021-11-12 12:14 | Outpatient (CLI) | payer MEDICARE, SELFPAY | END 2021-11-12 12:15 | disposition home or self-care (01) | LOC: CHSLAB 12:15 | PROVIDERS: PCP Family Medicine; Visit Provider Specialist | DX: L57.0 Actinic keratosis (principal) | CPT/HCPCS: 88305 ==

== ENCOUNTER 2021-11-14 09:30 | Outpatient (CLI) | payer MEDICARE, SELFPAY ==
--- NOTE | ~2021-11-14 | MMUS_ITS ---
EXAMINATION: MM diagnostic stefani LT w haider, US breast LT limited HISTORY: Left breast mass on screening mammogram TECHNIQUE: Additional 3-D tomosynthesis images of the left breast were performed and synthetic 2-D im ages were generated. CAD analysis was submitted and interpreted. High resolution limited left breast ultrasound was performed. COMPARISON: 11/06/2021, 12/03/2018 FINDINGS: MAMMOGRAPHIC FINDINGS: There is a 6 mm oval mass with indistinct margins in the far posterior third of the lower inner breas t at the 8:00 location 17 cm from the nipple which appears to project in the skin. No associated calc ification or architectural distortion are identified. ULTRASOUND: There is a 7 mm mass with a tract to the skin surface at the 7:00 location 15 cm from the nipple shahana esponding to the mammographic finding in question, most consistent with a sebaceous cyst. IMPRESSION: 1. No mammographic or sonographic evidence of malignancy. 2. Recommend routine screening mammography in one year. BI-RADS Category 2: Benign finding(s). Reviewed, dictated and finalized at location A. GE OPERATOR IMPRESSION: 1. No mammographic or sonographic evidence of malignancy. 2. Recommend routine screening mammography in one year. BI-RADS Category 2: Benign finding(s).
== END 2021-11-14 09:31 | disposition home or self-care (01) ==
LOC: CHSIMG 09:31
PROVIDERS: PCP Family Medicine; Visit Provider Family Medicine
DX: R92.8 Other abnormal and inconclusive findings on diagnostic imaging of breast (principal)
CPT/HCPCS: 76642; 77061; 77065; G0279

== ENCOUNTER 2021-11-26 13:26 | Outpatient (CLI) | payer MEDICARE, SELFPAY ==
--- NOTE | ~2021-11-26 | XR_ITS ---
EXAMINATION: XR hand RT min 3V DATE: 11/26/2021 13:44 INDICATION: Painful mass at the distal right third digit TECHNIQUE: Posteroanterior, oblique and lateral views of the right hand were obtained. COMPARISON: None. FINDINGS: Diffuse osteopenia. Bone alignment is normal. No fracture. Polyarticular osteoarthritis, severe at th e triscaphe and second distal interphalangeal joints, moderate severity at the first carpometacarpal and third and fourth distal interphalangeal joints and mild at the metacarpophalangeal and remaining interphalangeal joints. No cortical erosions or periosteal reaction. There is focal soft tissue swell ing with prominent bulge along the skin surface at the radial side of the right third distal phalanx suggesting an underlying soft tissue mass or cyst. IMPRESSION: 1. Likely small soft tissue mass or cyst at the radial aspect of the right third distal phalanx with no underlying osseous abnormality. 2. Moderate to severe polyarticular osteoarthritis. 3. Diffuse osteopenia. Reviewed, dictated and finalized at location A. IMPRESSION: 1. Likely small soft tissue mass or cyst at the radial aspect of the right thir d distal phalanx with no underlying osseous abnormality. 2. Moderate to severe polyarticular osteoarthritis. 3. Diffuse osteopenia.
== END 2021-11-26 13:27 | disposition home or self-care (01) ==
LOC: CHSIMG 13:30
PROVIDERS: PCP Family Medicine
DX: R22.31 Localized swelling, mass and lump, right upper limb (principal)
CPT/HCPCS: 73130

== ENCOUNTER 2022-04-28 10:59 | Outpatient (RCR) | payer MEDICARE, SELFPAY ==
--- NOTE | 2022-04-28 13:38 | PTOPEVAL ---
Thank you for referring Beatriz Morgan to [facility].? The patient is scheduled to be seen for therapy? __2__x/week for 10 visits. Please review, sign, date and return this plan of care ESPERANZA. I agree with and certify that the following plan of care is medically necessary. Referring Physician Date Admitting Provider: Attending Provider: Pio Mike DO Referring Provider: *PT Outpatient Evaluation Start: 04/28/22 11:05 Freq: Status: Active Protocol: Document 04/28/22 11:06 DINA (Rec: 04/28/22 11:40 DINA [id number]) Therapy Assessment Status Assessment Status Assessment Status Evaluation Outpatient Past Medical History Cardiovascular History Hx Hypercholesterolemia Yes Hx Hypertension Yes Gastrointestinal History Hx Gastric Bypass Surgery Yes Hx Hernia Yes Hx Ulcer Yes Musculoskeletal History Hx Joint Replacement Yes: KNEE HEENT History Hx Tonsillectomy Yes Reproductive History Hx Post Menopausal Yes Psychosocial History Hx Anxiety Yes Hx Depression Yes Evaluation Information Problem Diagnosis achilles tendonitis, unsteadiness of feet Onset 10/29/21 Subjective Information Pt. reports that she developed Query Text:As Reported By Patient/ describes right achilles Family tendon pain about 6 months ago . She reports that her pain and unsteadiness on the right foot has worsened over the past 6 months. She reports that she more recently began to notice unsteadiness. She describes occassional LOB but no recent falls. She reports that she can walk about 1 mile before having to sit. She states that pain and weakness can be most noticable after getting up from a seated position following a long period of walking. She reports that her goal is to decrease her pain and decrease episodes of the right ankle giving out with standing. 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
== END 2022-06-04 08:57 | disposition home or self-care (01) ==
LOC: CHSPT 10:59
PROVIDERS: PCP Family Medicine; Visit Provider Family Medicine
DX: M76.60 Achilles tendinitis, unspecified leg (principal); R26.81 Unsteadiness on feet
CPT/HCPCS: 97110; 97112; 97161; 97530

== ENCOUNTER 2022-06-09 09:35 | Outpatient (CLI) | payer MEDICARE, SELFPAY ==
[2022-06-09 10:04] LABS: Basophils Absolute Auto 0.05 K/mm3 (0.00-0.10); Basophils Percent Auto 0.8 % (0.0-1.0); Eosinophils Absolute Auto 0.41 K/mm3 (0.02-0.50); Eosinophils Percent Auto 6.9 % (1.0-6.0); Hematocrit 40.4 % (35.0-42.0); Hemoglobin 13.2 g/dL (11.7-13.8); Immature Granulocyte Absolute 0.02 K/mm3 (0.00-0.00); Immature Granulocyte Percent A 0.3 % (0.0-0.0); Lymphocytes Absolute Auto 2.78 K/mm3 (1.10-4.50); Lymphocytes Percent Auto 46.6 % (18.0-42.0); Mean Corpuscular HGB Conc 32.7 g/dL (32.0-36.0); Mean Corpuscular Hemoglobin 30.3 pg (27.0-31.0); Mean Corpuscular Volume 92.9 fL (78.0-102.0); Mean Platelet Volume 9.2 fl (9.2-11.8); Monocytes Absolute Auto 0.53 K/mm3 (0.10-0.90); Monocytes Percent Auto 8.9 % (2.0-11.0); Neutrophils Absolute Auto 2.2 K/mm3 (1.7-7.2); Neutrophils Percent Auto 36.5 % (50.0-70.0); Platelet Count Result 346 K/mm3 (150-420); Red Blood Count 4.35 M/mm3 (4.20-5.40); Red Cell Distribution Width 11.9 % (11.6-14.4)
[2022-06-09 10:14] LABS: Hemoglobin A1C 5.3 % (<5.7)
[2022-06-09 13:09] LABS: Alanine Aminotransferase 22 U/L (14-59); Albumin Level 3.9 g/dL (3.4-5.0); Blood Urea Nitrogen 13 mg/dL (7-18); Calcium 8.7 mg/dL (8.5-10.1); Estimated Glomerular Filt Rate > 60; Ferritin 41 ng/mL (8-252); Folic Acid 18.4 ng/mL (8.6->20); Glucose 89 mg/dL (70-99); HDL Direct 72 mg/dL (40-60); Osmolality Calculated 287 mOsm/kg (285-295); Sodium 139 mmol/L (136-145)
[2022-06-09 13:10] LABS: Anion Gap 9 mmol/L (8-16); Aspartate Amino Transferase 18 U/L (15-37); Bilirubin,Total 0.4 mg/dL (0.00-1.00); Carbon Dioxide 28 mmol/L (21-32); Chloride 102 mmol/L (98-108); Cholesterol 209 mg/dL (0-200); Iron 134 ug/dL (50-170); LDL Cholesterol Calculated 108 mg/dL (<130); Percent Iron Saturation 37 % (12-57); Potassium 4.4 mmol/L (3.5-5.1); Total Protein 6.7 g/dL (6.4-8.2); Triglycerides 145 mg/dL (0-150)
[2022-06-09 13:11] LABS: Alkaline Phosphatase 157 U/L (46-116); Vitamin B12 311 pg/mL (193-986)
[2022-06-11 20:58] LABS: Prealbumin 20 mg/dL (17-34)
[2022-06-11 22:56] LABS: Zinc 79 mcg/dL (60-130)
[2022-06-12 14:31] LABS: Vitamin D 25 Hydroxy 38 ng/mL (30-100)
[2022-06-13 12:00] LABS: Vitamin B1 21 nmol/L (8-30)
== END 2022-06-09 09:36 | disposition home or self-care (01) ==
PROVIDERS: PCP Family Medicine
DX: K21.9 Gastro-esophageal reflux disease without esophagitis (principal); K44.9 Diaphragmatic hernia without obstruction or gangrene; E78.00 Pure hypercholesterolemia, unspecified; E78.5 Hyperlipidemia, unspecified; I10 Essential (primary) hypertension; K90.9 Intestinal malabsorption, unspecified; E61.1 Iron deficiency; E53.8 Deficiency of other specified B group vitamins; E66.3 Overweight; R73.03 Prediabetes; Z98.84 Bariatric surgery status; E55.9 Vitamin D deficiency, unspecified; R63.30 Feeding difficulties, unspecified
CPT/HCPCS: 36415; 80053; 80061; 82306; 82525; 82607; 82728; 82746; 82747; 83036; 83540; 83550; 83735; 84134; 84425; 84630; 85025

== ENCOUNTER 2023-01-28 11:30 | Outpatient (CLI) | payer MEDICARE, SELFPAY ==
[2023-01-28 11:46] LABS: Appearance Urine Clear (Clear); Bilirubin Urine Negative (Negative); Blood Urine Trace-Intact (Negative); Color Urine Light Yellow (Yellow); Glucose Urine UA Negative (Negative); Ketones Urine Negative (Negative); Leukocyte Esterase Ur 1+ LEU/UL (Negative); Nitrate Urine Negative (Negative); Protein Urine 1+ (Negative); pH Urine 6.5 (5.0-8.0)
[2023-01-28 11:59] LABS: Add Urine Microscopic? YES; Bacteria Urine 2+ /hpf; RBC Urine 0-2 /hpf (0-2); Squamous Epithelial Cell Urine Rare /hpf (Few)
== END 2023-01-28 11:31 | disposition home or self-care (01) ==
LOC: CHSLAB 11:34
PROVIDERS: PCP Family Medicine; Visit Provider Family Medicine
DX: R30.0 Dysuria (principal); R82.90 Unspecified abnormal findings in urine
CPT/HCPCS: 81001; 87077; 87086; 87088; 87186

== ENCOUNTER 2023-10-09 14:37 | Emergency (ER) | payer MEDICARE, SELFPAY ==
[2023-10-09 14:38] VITALS: BP 173/87; PULSE 78; RESP 20; TEMP 36.6; O2SAT 100
--- NOTE | 2023-10-09 15:01 | ED.BACK ---
HPI - Back Pain/Injury General Chief Complaint: Back Pain/Injury Stated Complaint: back pain Source: patient Mode of arrival: ambulatory Limitations: no limitations History of Present Illness HPI Narrative: patient is a 73-year-old female with lower back pain for the past few days. Patient was sitting for many hours a few days ago at the hospital with her family and relates the connection of pain. No injury. MD elicited complaint: back pain ( Lower) Onset (ago): day(s) Timing: intermittent Severity: moderate Pain scale (0-10): 6 Similar Symptoms Previously: No Quality: sharp Location: lumbar spine and sacrum Radiation: none Exacerbating factors: none Relieving factors: none Context: other ( while sitting for long period of time) Associated symptoms: denies other symptoms Related Data Home Medications Medication Instructions Recorded Confirmed duloxetine 60 mg capsule,delayed 120 mg PO DAILY 10/25/19 02/20/20 release (Cymbalta) calcium citrate malate-vitamin D3 tablet PO TID 06/18/20 500 mg-200 unit tablet latanoprost 0.005 % eye drops 1 drop ophthalmic (eye) .Bedtime 06/18/20 mecobalamin (vitamin B12) 1,000 1,000 mcg PO DAILY 06/18/20 mcg chewable tablet multivitamin 1 tablet PO TID 06/18/20 timolol maleate 0.25 % eye drops 1 drop ophthalmic (eye) .Bedtime 06/18/20 Allergies Allergy/AdvReac Type Severity Reaction Status Date / Time Sulfa (Sulfonamide Allergy Unknown Unknown Verified 03/23/23 11:17 Antibiotics) Review of Systems Review of Systems: All systems reviewed & are unremarkable except as noted in HPI and below Constitutional: Constitutional: Reports no additional constitutional complaints Eyes: Eyes: Reports no additional eye complaints ENT: Reports system reviewed and no additional complaints, except as documented Cardiovascular: Cardiovascular: Reports no additional cardiovascular complaints Respiratory: Respiratory: Reports no additional respiratory complaints Gastrointestinal: Gastrointestinal: Reports no additional gastrointestinal complaints Genitourinary: Genitourinary: Reports no additional female genitourinary complaints Musculoskeletal: Musculoskeletal: Reports no additional musculoskeletal complaints Integumentary/Breasts: Skin/Breast: Reports system reviewed and no additional complaints, except as docu Neurologic: Reports system reviewed and no additional complaints, except as documented Psychiatric: Psychiatric: Reports no additional psychiatric complaints Endocrine: Endocrine: Reports no additional endocrine complaints Hematologic/Lymphatic: Hematologic/Lymphatic: Reports no additional hematologic/lymphatic complaints Allergic/Immunologic: Allergic/Immunologic: Reports no additional allergic/immunologic complaints PMFSH Past Medical History Medical History Depression GERD (gastroesophageal reflux disease) History of peptic ulcer Hyperlipidemia Hypertension Iron deficiency anemia Low vitamin D level Osteoporosis Overweight Prediabetes Surgical History Surgical History H/O gastric bypass History of hysterectomy 1986 History of knee replacement Left Knee December 2013 Family History Family History Mother Family history of hypercholesterolemia Hypertension Family history of cardiovascular disease Sibling Family history of blood dyscrasia Social History Social History Smoking status: Never smoker Alcohol intake: never Exam Const: General: healthy appearing Nutritional Appearance: well nourished Orientation/consciousness: patient oriented x3 HENMT: Head: normal to inspection Ears: external ears normal Face/Nose/Sinus: Normal external nose present Eyes: Conjunctivae: conjunctivae normal Pupils: Equal, round
[2023-10-09] MEDS: ORPHENADRINE CITRATE 30 MG/ML 2 ML VIAL 60 MG IM (15:02)
[2023-10-09 15:49] LABS: Appearance Urine Clear (Clear); Bilirubin Urine Negative (Negative); Blood Urine Negative (Negative); Color Urine Yellow (Yellow); Glucose Urine UA Negative (Negative); Ketones Urine Negative (Negative); Leukocyte Esterase Ur Negative LEU/UL (Negative); Nitrate Urine Negative (Negative); Protein Urine Negative (Negative); Specific Grav Ur 1.015 (1.010-1.020); Urobilinogen Urine 0.2 mg/dL (0.2-1.0); pH Urine 5.5 (5.0-8.0)
[2023-10-09 16:17] VITALS: BP 172/94; PULSE 78; RESP 20; TEMP 36.3; O2SAT 95
== END 2023-10-09 16:19 | disposition home or self-care (01) ==
PROVIDERS: Emergency Provider Emergency Medicine; PCP Family Medicine
DX: M54.50 Low back pain, unspecified (principal); E78.5 Hyperlipidemia, unspecified; I10 Essential (primary) hypertension
CPT/HCPCS: 96372; 99283; J2360

== ENCOUNTER 2023-10-21 14:07 | Outpatient (CLI) | payer MEDICARE, SELFPAY ==
[2023-10-21 14:30] LABS: Appearance Urine Clear (Clear); Bilirubin Urine Negative (Negative); Blood Urine Negative (Negative); Color Urine Yellow (Yellow); Glucose Urine UA Negative (Negative); Ketones Urine Trace (Negative); Leukocyte Esterase Ur Negative (Negative); Nitrate Urine Negative (Negative); Protein Urine 2+ (Negative); Specific Grav Ur >= 1.030 (1.010-1.020)
[2023-10-21 14:35] LABS: Add Urine Microscopic? YES; Bacteria Urine Trace /hpf; Mucus Urine Few /lpf; RBC Urine None seen /hpf (0-2); Squamous Epithelial Cell Urine Few /hpf (Few); WBC Urine None seen /hpf (0-3)
== END 2023-10-21 14:08 | disposition home or self-care (01) ==
LOC: CHSLAB 14:08
PROVIDERS: PCP Family Medicine; Visit Provider Nurse Practitioner Family
DX: R35.0 Frequency of micturition (principal)
CPT/HCPCS: 81001; 87086; 87088

== ENCOUNTER 2023-11-10 12:39 | Outpatient (CLI) | payer MEDICARE, SELFPAY ==
[2023-11-10 13:12] LABS: Add Urine Microscopic? NO; Appearance Urine Clear (Clear); Basophils Absolute Auto 0.06 K/mm3 (0.00-0.10); Basophils Percent Auto 0.9 % (0.0-1.0); Bilirubin Urine Negative (Negative); Blood Urine Negative (Negative); Color Urine Yellow (Yellow); Eosinophils Absolute Auto 0.41 K/mm3 (0.02-0.50); Eosinophils Percent Auto 6.1 % (1.0-6.0); Glucose Urine UA Negative (Negative); Hematocrit 39.8 % (35.0-42.0); Hemoglobin 13.1 g/dL (11.7-13.8); Immature Granulocyte Absolute 0.03 K/mm3 (0.00-0.00); Immature Granulocyte Percent A 0.4 % (0.0-0.0); Ketones Urine Negative (Negative); Leukocyte Esterase Ur Negative LEU/UL (Negative); Lymphocytes Absolute Auto 2.22 K/mm3 (1.10-4.50); Lymphocytes Percent Auto 33.1 % (18.0-42.0); Mean Corpuscular HGB Conc 32.9 g/dL (32.0-36.0); Mean Corpuscular Hemoglobin 30.6 pg (27.0-31.0); Mean Platelet Volume 9.3 fl (9.2-11.8); Monocytes Absolute Auto 0.52 K/mm3 (0.10-0.90); Monocytes Percent Auto 7.8 % (2.0-11.0); Neutrophils Absolute Auto 3.5 K/mm3 (1.7-7.2); Neutrophils Percent Auto 51.7 % (50.0-70.0); Nitrate Urine Negative (Negative); Platelet Count Result 365 K/mm3 (150-420); Protein Urine Negative (Negative); Red Blood Count 4.28 M/mm3 (4.20-5.40); Red Cell Distribution Width 12.1 % (11.6-14.4); Specific Grav Ur 1.015 (1.010-1.020); Urobilinogen Urine 0.2 mg/dL (0.2-1.0); White Blood Count 6.7 K/mm3 (4.8-10.8)
[2023-11-10 14:05] LABS: Alanine Aminotransferase 14 U/L (14-59); Albumin Level 3.6 g/dL (3.4-5.0); Alkaline Phosphatase 162 U/L (46-116); Anion Gap 10 mmol/L (8-16); Aspartate Amino Transferase 16 U/L (15-37); Bilirubin,Total 0.4 mg/dL (0.00-1.00); Blood Urea Nitrogen 12 mg/dL (7-18); Calcium 8.8 mg/dL (8.5-10.1); Carbon Dioxide 28 mmol/L (21-32); Chloride 103 mmol/L (98-108); Cholesterol 151 mg/dL (0-200); Estimated Glomerular Filt Rate > 60; Ferritin 40 ng/mL (8-252); Glucose 99 mg/dL (70-99); HDL Direct 70 mg/dL (40-60); Iron 88 ug/dL (50-170); LDL Cholesterol Calculated 61 mg/dL (<130); Magnesium 1.8 mg/dL (1.8-2.4); Osmolality Calculated 291 mOsm/kg (285-295); Potassium 4.3 mmol/L (3.5-5.1); Sodium 141 mmol/L (136-145); Total Protein 7.3 g/dL (6.4-8.2); Triglycerides 102 mg/dL (0-150); Vitamin B12 591 pg/mL (193-986)
[2023-11-12 13:48] LABS: Vitamin D 25 Hydroxy 57 ng/mL (30-100)
== END 2023-11-10 12:40 | disposition home or self-care (01) ==
PROVIDERS: PCP Nurse Practitioner Family; Visit Provider Nurse Practitioner Family
DX: D50.9 Iron deficiency anemia, unspecified (principal); Z13.6 Encounter for screening for cardiovascular disorders; I10 Essential (primary) hypertension; E78.5 Hyperlipidemia, unspecified; Z79.899 Other long term (current) drug therapy; E53.8 Deficiency of other specified B group vitamins; Z87.898 Personal history of other specified conditions; R79.89 Other specified abnormal findings of blood chemistry
CPT/HCPCS: 36415; 80053; 80061; 81003; 82306; 82607; 82728; 83540; 83735; 85025

== ENCOUNTER 2024-03-17 13:22 | Emergency (ER) | payer MEDICARE, SELFPAY ==
[2024-03-17 13:22] VITALS: BP 173/71; PULSE 57; RESP 20; TEMP 36.8; O2SAT 95
--- NOTE | 2024-03-17 13:24 | ED.URI ---
HPI - URI/Sore Throat General Chief Complaint: Upper Respiratory Infection Stated Complaint: respiratory symptoms Time Seen by Provider: 03/17/24 13:24 Source: patient Mode of arrival: ambulatory Limitations: no limitations History of Present Illness HPI Narrative: This is a 73-year-old female that tested positive for COVID 1 day prior and presents with some cough fever, currently there is no fever O2 sats of 95% on room air. There is no shortness of breath no chest pain no chest tightness no wheezing no nausea vomiting or abdominal pain. MD elicited complaint: fever and cough Onset (ago): day(s) Consistency: constant Severity: mild Related Data Home Medications Medication Instructions Recorded Confirmed duloxetine 60 mg capsule,delayed 120 mg PO DAILY 10/25/19 03/17/24 release (Cymbalta) calcium citrate malate-vitamin D3 1 tablet PO TID 06/18/20 03/17/24 500 mg-200 unit tablet latanoprost 0.005 % eye drops 1 drop ophthalmic (eye) .Bedtime 06/18/20 11/10/23 multivitamin 1 tablet PO TID 06/18/20 11/10/23 Allergies Allergy/AdvReac Type Severity Reaction Status Date / Time Sulfa (Sulfonamide Allergy Unknown Unknown Verified 03/17/24 13:24 Antibiotics) Review of Systems Review of Systems: All systems reviewed & are unremarkable except as noted in HPI and below PMFSH Past Medical History Medical History Depression GERD (gastroesophageal reflux disease) History of peptic ulcer Hyperlipidemia Hypertension Iron deficiency anemia Low vitamin D level Osteoporosis Overweight Prediabetes Surgical History Surgical History H/O gastric bypass History of hysterectomy 1986 History of knee replacement Left Knee December 2013 Family History Family History Mother Family history of hypercholesterolemia Hypertension Family history of cardiovascular disease Sibling Family history of blood dyscrasia Social History Social History Smoking status: Never smoker Alcohol intake: never Exam Const: General: healthy appearing and no acute distress Nutritional Appearance: well nourished Orientation/consciousness: patient oriented x3 Limitations: no limitations HENMT: Head: normal to inspection Eyes: Conjunctivae: conjunctivae normal Neck: Neck: normal visual inspection, no lymphadenopathy and no meningeal signs Chest: Chest palpation & inspection: normal inspection of the chest Resp: Effort & Inspection: normal respiratory effort Auscultation: clear to auscultation bilaterally Cardio: Rate: regular rate Rhythm: regular rhythm GI: GI Palp: Yes Soft to palpation Course Course Emergency Course: Advised take medicine as prescribed patient otherwise doing well O2 sats 95% on room air afebrile. Vital Signs Vital signs: Vital Signs Temperature 36.8 C 03/17/24 13:22 Pulse Rate 57 L 03/17/24 13:22 Respiratory Rate 20 03/17/24 13:22 Blood Pressure 173/71 H 03/17/24 13:22 Pulse Oximetry 95 03/17/24 13:22 Oxygen Delivery Room Air 03/17/24 13:22 Temperature 36.8 C 03/17/24 13:22 Pulse Rate 57 L 03/17/24 13:22 Respiratory Rate 20 03/17/24 13:22 Blood Pressure 173/71 H 03/17/24 13:22 Pulse Oximetry 95 03/17/24 13:22 Oxygen Delivery Room Air 03/17/24 13:22 Critical Care Time Critical Care Time Critical Care Time: No Discharge Plan Discharge Clinical Impression: COVID-19 Patient Disposition: Home, Self-Care Condition: Stable Instructions: Antibiotic Form, COVID-19 (Coronavirus Disease 2019) (ED) Additional Instructions: take medicine as prescribed to self isolate for 1 week can take Tylenol or Motrin for fever Prescriptions: New Paxlovid 300 mg (150 mg x 2)-100 mg tablets,dose pack See Rx Instruction
[2024-03-17 13:25] VITALS: BP 173/71; PULSE 57; RESP 20; TEMP 36.8; O2SAT 95
== END 2024-03-17 13:32 | disposition home or self-care (01) ==
LOC: CHSED 13:31
PROVIDERS: Emergency Provider Emergency Medicine; PCP Nurse Practitioner Family
DX: U07.1 COVID-19 (principal); E78.5 Hyperlipidemia, unspecified; I10 Essential (primary) hypertension; Z79.899 Other long term (current) drug therapy
CPT/HCPCS: 99283

== ENCOUNTER 2024-06-28 14:36 | Outpatient (CLI) | payer MEDICARE, SELFPAY ==
[2024-06-28 15:12] LABS: Strep Group A RT-PCR NOT DETECTED (Negative)
[2024-06-28 15:22] LABS: SARS-CoV-2 RNA PCR Negative (Negative)
[2024-06-28 15:23] LABS: Influenza A QL RT-PCR Negative (Negative); Influenza B QL RT-PCR Negative (Negative); RSV RNA, RT-PCR Negative (Negative)
== END 2024-06-28 14:37 | disposition home or self-care (01) ==
LOC: CHSLAB 14:38
PROVIDERS: PCP Nurse Practitioner Family; Visit Provider Nurse Practitioner Family
DX: R50.9 Fever, unspecified (principal)
CPT/HCPCS: 87637; 87651

== ENCOUNTER 2024-07-04 08:46 | Outpatient (CLI) | payer MEDICARE, SELFPAY ==
[2024-07-04 09:06] LABS: Basophils Absolute Auto 0.08 K/mm3 (0.00-0.10); Basophils Percent Auto 1.1 % (0.0-1.0); Eosinophils Absolute Auto 0.51 K/mm3 (0.02-0.50); Eosinophils Percent Auto 7.2 % (1.0-6.0); Hematocrit 38.7 % (35.0-42.0); Hemoglobin 12.7 g/dL (11.7-13.8); Immature Granulocyte Absolute 0.04 K/mm3 (0.00-0.00); Immature Granulocyte Percent A 0.6 % (0.0-0.0); Lymphocytes Absolute Auto 2.57 K/mm3 (1.10-4.50); Lymphocytes Percent Auto 36.2 % (18.0-42.0); Mean Corpuscular HGB Conc 32.8 g/dL (32-36); Mean Corpuscular Hemoglobin 29.7 pg (27.0-31.0); Mean Corpuscular Volume 90.4 fL (78.0-102.0); Mean Platelet Volume 9.3 fl (9.2-11.8); Monocytes Absolute Auto 0.65 K/mm3 (0.10-0.90); Monocytes Percent Auto 9.2 % (2.0-11.0); Neutrophils Absolute Auto 3.25 K/mm3 (1.70-7.20); Neutrophils Percent Auto 45.7 % (50.0-70.0); Platelet Count Result 426 K/mm3 (150-420); Red Blood Count 4.28 M/mm3 (4.20-5.40); Red Cell Distribution Width 12.2 % (11.6-14.4); White Blood Count 7.1 K/mm3 (4.8-10.8)
[2024-07-04 09:37] LABS: Hemoglobin A1C 5.3 % (<5.7)
[2024-07-04 10:12] LABS: Alanine Aminotransferase 22 U/L (14-59); Albumin Level 3.4 g/dL (3.4-5.0); Alkaline Phosphatase 148 U/L (46-116); Anion Gap 7 mmol/L (4-12); Aspartate Amino Transferase 16 U/L (15-37); Bilirubin,Total 0.4 mg/dL (0.00-1.00); Blood Urea Nitrogen 15 mg/dL (7-18); Calcium 8.9 mg/dL (8.5-10.1); Carbon Dioxide 31 mmol/L (21-32); Chloride 104 mmol/L (98-108); Cholesterol 159 mg/dL (0-200); Estimated Glomerular Filt Rate > 60; Folic Acid 17.5 ng/mL (8.6->20); Glucose 93 mg/dL (70-99); HDL Direct 74 mg/dL (40-60); Iron 58 ug/dL (50-170); LDL Cholesterol Calculated 62 mg/dL (<130); Magnesium 2.1 mg/dL (1.8-2.4); Osmolality Calculated 294 mOsm/kg (285-295); Potassium 4.5 mmol/L (3.5-5.1); Sodium 142 mmol/L (136-145); Total Protein 6.6 g/dL (6.4-8.2); Triglycerides 116 mg/dL (0-150); Vitamin B12 341 pg/mL (193-986)
[2024-07-04 17:40] LABS: Percent Iron Saturation 15 % (12-57)
[2024-07-06 09:39] LABS: Vitamin D 25 Hydroxy 51 ng/mL (30-100)
[2024-07-08 13:19] LABS: Vitamin B1 29 nmol/L (8-30)
== END 2024-07-04 08:47 | disposition home or self-care (01) ==
PROVIDERS: PCP Family Medicine
DX: R79.0 Abnormal level of blood mineral (principal); R79.89 Other specified abnormal findings of blood chemistry; I10 Essential (primary) hypertension; K90.9 Intestinal malabsorption, unspecified; E61.1 Iron deficiency; E78.00 Pure hypercholesterolemia, unspecified; M81.0 Age-related osteoporosis without current pathological fracture
CPT/HCPCS: 36415; 80053; 80061; 82306; 82607; 82746; 83036; 83540; 83550; 83735; 84425; 85025

== ENCOUNTER 2024-12-07 12:14 | Outpatient (CLI) | payer MEDICARE, SELFPAY ==
[2024-12-07 12:52] LABS: Hemoglobin A1C 5.6 % (<5.7)
[2024-12-07 13:22] LABS: Alanine Aminotransferase 17 U/L (14-59); Albumin Level 3.8 g/dL (3.4-5.0); Alkaline Phosphatase 191 U/L (46-116); Anion Gap 5 mmol/L (4-12); Aspartate Amino Transferase 16 U/L (15-37); Bilirubin,Total 0.4 mg/dL (0.00-1.00); Blood Urea Nitrogen 19 mg/dL (7-18); Calcium 9.4 mg/dL (8.5-10.1); Carbon Dioxide 30 mmol/L (21-32); Chloride 101 mmol/L (98-108); Estimated Glomerular Filt Rate > 60; Glucose 79 mg/dL (70-99); Osmolality Calculated 283 mOsm/kg (285-295); Potassium 4.7 mmol/L (3.5-5.1); Sodium 136 mmol/L (136-145)
[2024-12-07 13:24] LABS: Thyroid Stimulating Hormone Reflex 1.57 u/IU/mL (0.36-3.74)
--- OUTSIDE RECORDS SUMMARY | 2024-12-07 13:24 | XMS_ITS | Clinical Summary ---
Author Organization [facility] [address] [place] [address] [place] [id number] Care Team Providers Care Laser Printing Operator Name Role Phone Meek Blanton MD Primary Care Provider [phone] Allergies Active Allergy Reactions Criticality Noted Date Comments Morphine Anxiety Low 06/21/2019 Sulfamethoxazole-Trimethoprim Swelling Medium 2016 Medications HYDROcodone-nani taminophen (NORCO) 5-325 mg per tabletIndicatio ns:Pain TAKE 1 TABLET BY MOUTH EVERY 4 HOURS 0 04/01/2017 Active atorvastatin (LIPITOR) 40 mg tablet Take 40 mg by mouth daily Active busPIRone (BUSPAR) 10 mg tabletIndicatio ns:Generalized Anxiety Disorder Take 10 mg by mouth 3 (three) times a day Active DULoxetine DR (CYMBALTA) 60 mg capsule Take 60 mg by mouth daily Active lisinopril (PRINIVIL,ZESTR IL) 20 mg tablet Take 20 mg by mouth daily Active omeprazole (PriLOSEC) 40 mg capsule Take 40 mg by mouth daily Active timolol (BETIMOL) 0.25 % ophthalmic solution 1-2 drops 2 (two) times a day Active latanoprost (XALATAN) 0.005 % ophthalmic solution 1 drop nightly Active Active Problems Problem Noted Date Diagnosed Date Mass of finger of right hand 12/01/2021 Mass of left finger 11/25/2021 Overview (11/25/2021): Added automatically from request for surgery [id number] Surgical History Surgery Date Site/Laterality Comments HYSTERECTOMY BLADDER SUSPENSION REPLACEMENT TOTAL KNEE Left Medical History Medical History Date Comments Hypertension High cholesterol Neuropathy hands Osteoporosis Osteoarthritis Depression GERD (gastroesophageal reflux disease) Anxiety Family History Medical History Relation Name Comments Abdominal Aortic Aneurysm Brother Hypertension Father Heart disease Mother Arthritis Sister Relation Name Status Comments Brother Father Mother Sister Social History Tobacco Use Types Packs/Day Years Used Date Smoking Tobacco: Never Smokeless Tobacco: Never Personal Safety Answer Date Recorded Getting School Help Needed Not on file 11/03 Comments Unknown Sex and Gender Information Value Date Recorded Sex Assigned at Not on file 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 Gender Identity Female 11/30/2021 6:57 PM CDT Sexual Orientation Not on file Obstetrics History Last Filed Vital Signs Vital Sign Reading Time Taken Comments Blood Pressure 141/76 07/11/2019 12:19 PM CDT Pulse 76 07/11/2019 12:19 PM CDT Temperature - - Respiratory Rate 14 07/11/2019 12:19 PM CDT Oxygen Saturation - - Inhaled Oxygen Concentration - - Weight 68 kg (150 lb) 11/22/2021 2:28 PM GEOPHYSICAL OPERATOR Height 163.8 cm (5' 4.5 ) 11/22/2021 2:28 PM GEOPHYSICAL OPERATOR Body Mass Index 25.35 11/22/2021 2:28 PM GEOPHYSICAL OPERATOR Plan of Treatment Health Maintenance Due Date Last Done Comments Breast Cancer Screening-Mammogram 1950 Colon Cancer Screening-Colonoscopy 1950 Depression Screening 1950 Fall Risk Assessment 1950 Hepatitis C Screening 1950 Osteoporosis Screening-Bone Density Scan 1950 DTaP/Tdap/Td Vaccine (1 - Tdap) 1961 Hepatitis B Screening 1968 Zoster Vaccine (1 of 2) 2000 Well Visit 65+ 2015 Pneumococcal vaccine 65+ (2 of 2 - PPSV23) 08/19/2018 08/19/2017 Covid-19 Vaccine (2023-2 5 season) 2024 09/12/2021, 11/06/2020, 10/16/2020 Influenza Vaccine (#1) 2024 2, 08/19/2017, 06/19/2016, Additional history exists Insurance [employer] MEDICARE [employer] MEDICARE HMO/PPO [employer] EXCHANGE HE[employer]IANCE MEDICARE HMO/PPO Care Teams Laser Printing Operator Relationship Specialty Start Date End Date Meek Blanton MD [address] [place] [address] PCP - General Family Medicine 06/05/17
--- OUTSIDE RECORDS SUMMARY | 2024-12-07 13:24 | XMS_ITS | Clinical Summary ---
Author Organization [facility] Address [address] [place] [address] Care Team Providers Care Assistant Producer Name Role Phone RashidJuanitajuani GRIFFIN Primary Care Provider [phone] Allergies Active Allergy Reactions Criticality Noted Date Comments Morphine Anxiety,Other (see comment) Medium 03/18/2018 States I get all keyed up States I get all keyed up Sulfa Antibiotics Swelling High 03/18/2018 Swelling of face Sulfamethoxazole-Trimet hoprim Anaphylaxis,Swelling High 06/05/2017 Swelling of face Trimethoprim Unknown 08/13/2016 Medications atorvastatin 40 MG tablet Take 40 mg by mouth daily. 01/10/2019 Active busPIRone 10 MG tablet Take 10 mg by mouth 3 (three) times a day. 11/29/2018 Active DULoxetine 60 MG capsule Take 120 mg by mouth daily. 03/08/2020 Active ferrous sulfate, 65 mg elemental, 325 (65 FE) MG tablet Take 1 tablet by mouth daily. 01/27/2020 Active fluticasone propionate 50 MCG/ACT nasal spray 1 spray by Nasal route daily. 03/04/2020 Active lisinopril-hydro CHLOROthiazide 20-25 MG tablet Take 1 tablet by mouth daily. 03/04/2020 Active omeprazole 20 MG capsule Take 20 mg by mouth daily. Active multi vitamin/minerals tablet Take 1 tablet by mouth daily. Active vitamin B-12 250 MCG Tab Take 250 mcg by mouth daily. Active Active Problems Problem Noted Date Diagnosed Date Essential hypertension, benign 04/03/2020 Hiatal hernia 04/03/2020 Mixed hyperlipidemia 04/03/2020 Family History Medical History Relation Comments Hyperlipidemia Mother Hypertension Mother Relation Status Comments Mother Social History Tobacco Use Types Packs/Day Years Used Date Smoking Tobacco: Never Smokeless Tobacco: Never Alcohol Use Standard Drinks/Week Comments Never 0 (1 standard drink = 0.6 oz pur e alcohol) AUDIT-C Answer Date Recorded Frequency of Alcohol Consumption Never 03/29/2020 Average Number of Drinks Not on file 020 Frequency of Binge Drinking Not on file 03/14 Comments Unknown Sex and Gender Information Value Date Recorded Sex Assigned at Not on file 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 Gender Identity Not on file Sexual Orientation Not on file Last Filed Vital Signs Vital Sign Reading Time Taken Comments Blood Pressure 130/78 04/03/2020 2:21 PM CDT Pulse 80 04/03/2020 2:21 PM CDT Temperature - - Respiratory Rate 04/03/2020 2:21 PM CDT Oxygen Saturation - - Inhaled Oxygen Concentration - - Weight 100.5 kg (221 lb 9.6 oz) 04/03/2020 2:21 PM CDT Height 165.1 cm (5' 5 ) 04/03/2020 2:21 PM CDT Body Mass Index 36.88 04/03/2020 2:21 PM CDT Plan of Treatment Health Maintenance Due Date Last Done Comments Colorectal Cancer Screening Colonoscopy (10 Years) 1950 Hepatitis C 1968 DTaP, Tdap and Td Vaccines ( 1 - Tdap) 1969 Mammogram Screening 1990 Zoster Vaccines (1 of 2) 2000 Annual Medicare Wellness Visit 2015 Dexa Scan (General) 2015 Pneumococcal Vaccine: 65+ Years (2 of 2 - PPSV23 or PCV20) 08/19/2018 08/19/2017 COVID-19 Vaccine (2023-2 5 season) 2024 Influenza Adult (#1) 2024 08/19/2017, 06/19/2016 RSV Immunization or 60+ Years (1 - 1-dose 75+ series) 2025 Meningococcal B Vaccine Aged Out No l onger eligible based on patient's age to complete this topic Meningococcal Vaccine Aged Out No freddie markus eligible based on patient's age to complete this topic RSV Immunizations Under 20 Months Aged Out No longer eligible b ased on patient's age to complete this topic [facility] Care Teams Assistant Producer Relationship Specialty Start Date End Date Pio Mike DO [address] [place] [address] PCP - General FAMILY PRACTICE 03/28/20
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
--- OUTSIDE RECORDS SUMMARY | 2024-12-07 13:24 | XMS_ITS ---
Author Organization [facility] [employer] [facility] Address [address] [place] [address] Care Team Providers Care Microstrategy Developer Name Role Phone Pio Mike DO Primary Care Provider Unavail Rosanne Gallegos Unavailable [phone] REASON FOR VISIT Medication check Medications Medication SIG (Take, Route, Fr equency, Duration) Notes Start Date End Date Status DULoxetine HCl 60 MG 1 capsule Oral twic e a day for 90 days 12/29/2023 Active Social History Sex Assigned At : Social History Observation Description Sex Assigned At Female Encounters En[facility] [address] [place] [address] 08/01/2024 Rosanne Yin Major depressive disorder, recurrent, mild F33.0 Assessments Encounter Date Diagnosis (ICD Code) Assessment Notes Treatment Notes Treatment Clinical Notes Section Notes 08/01/2024 Major depressive disorder, recurrent, mild (ICD-10 - F33.0) Plan Of Treatment Medication Medication Name Sig Start Date Stop Date Notes DULoxetine HCl 60 MG 1 capsule Oral twic e a day for 90 days 12/29/2023 Next Appt Details Provider Name:Rosanne Yin, 03/28/2025 02:00:00 PM, [address], [address], [place], [address], Progress Notes * WU BENNETTOB: 0 (74 yo F)Acc No.[id number]:08/01/2024 Patient: Iram BARRIOS NOHELIA :1950 A ge:74 Y S ex:Female Address:[address] [place] [address], [address] * Refills Refill DULoxetine HCl Capsule Delayed Release Particles, 60 MG, Oral, 180, 1 capsule, twice a day, 90 days, Refills=0 * true * Date: Generated for Nader herring/Tory/Rogeritting on: 0 12/07/2024 01:24 PM CDT
--- OUTSIDE RECORDS SUMMARY | 2024-12-07 13:24 | XMS_ITS | Patient Health Record ---
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 Name Role Phone Pio Mike DO Primary Care Provider Unavail able Rosanne Yin Unavailable [phone] Migration, Provider Unavailable Unavailable Allergies No Known Allergies Results Component Value Reference Range Notes DRUG SCREEN, 14 DRUGS (DETEC TIMED), URINE Reviewed date:12/29/2023 12:00:00 AM Interpretation: Performing Lab: Notes/Report: Amphetamine negative Barbiturates negative Benzodiazipine negative Buprenorphine negative Cocaine negative MDMA/Ectasy negative Methadone negative Methamphetamine negative Morphine negative note 90, pos bzo Oxycodone negative Phenocyclidine negative THC negative Reason For Referral No Information Medications Medication SIG (Take, Route, Frequency, Duration) Notes Start Date End Date Status Zepbound 2.5 MG/0.5ML 0.5 mL Subcutaneous Active traZODone HCl 50 MG 1-2 tablet at bedtime Oral Once a day for 90 days Active Fluticasone Propionate Diskus 50 MCG/ACT Inhalation *Reorder from [employer] for eRx and Interaction Alerts* 12/29/2023 Unknown Timolol Maleate 0.25 % Ophthalmic 12/29/2023 Unknown ALPRAZolam 0.25 MG 1 tablet Oral Twice a day for 30 days as needed for anxiety 12/01/2024 Active Candesartan Cilexetil 32 MG Oral 12/29/2023 Unknown DULoxetine HCl 60 MG 1 capsule Oral twice a day for 90 days Active traZODone HCl 50 MG 1-2 tablet at bedtime Oral Once a day for 90 days As needed Active Atorvastatin Calcium 40 MG Oral 12/29/2023 Unknown Latanoprost 0.005 % Ophthalmic 12/29/2023 Unknown Social History Tobacco Use: Social History Observation Description Date Details (start date - stop date) Never Smoker NA - NA Sex Assigned At : Social History Observation Description Sex Assigned At Female Tobacco Control (Standard) Question Answer Notes Tobacco use: Nonsmoker Problems Problem Type SNOMED Code ICD Code Onset Dates Problem Status W/U Status Risk Notes Problem Mild recurrent major depression (64224542) Major depressive disorder, recurrent, mild (F33.0) Active confirmed Problem Generalized anxiety disorder (99372156) Generalized anxiety disorder (F41.1) Active confirmed Problem Insomnia disorder related to another mental disorder (03119252) Insomnia due to other mental disorder (F51.05) Active confirmed Vital Signs Heart Rate 54 /min 12/29/2023 Height-cm 162.56 cm 12/29/2023 Blood pressure diastolic 74 mm Hg 12/29/2023 Weight-kg 76.20 kg 12/29/2023 Height 64.00 in 12/29/2023 Blood pressure systolic 164 mm Hg 12/29/2023 Weight 168.00 lbs 12/29/2023 BMI 28.8 kg/m2 12/29/2023 Encounters Encounter Location Date Provider Diagnosis [facility] [place] [id number] [facility] [address] [address] 12/29/2023 Rosanne Yin Insomnia due to other mental disorder F51.05 ; Major depressive disorder, recurrent, mild F33.0 and Generalized anxiety disorder F41.1 [facility] [place] [address] [address] 04/05/2024 Rosanne Yin Major depressive disorder, recurrent, mild F33.0 ; Generalized anxiety disorder F41.1 and Insomnia due to other mental disorder F51.05 [facility] [place] [address] [address] 08/03/2024 Rosanne Humphrey Major depressive disorder, recurrent, mild F33.0 ; Generalized anxiety disorder F41.1 and Insomnia due to other mental disorder F51.05 [facility] [place] [address] [address] 12/01/2024 Rosanne Yin Encounter for screening for depression Z13.31 ; Major depressive disorder, recurrent, mild F33.0 ; Generalized anxiety disorder F41.1 and Insomnia due to other mental disorder F51.05 [facility] [address] [place] [address] [address] 01/19/2024 Provider Migration [address] [address] 01/20/[address] [address] 01/30/[address] [address] 01/31/[address] [address] 08/01/2024 Rosanne Yin Major depressive disorder, recurrent, mild F33.0 Assessments Encounter Date Diagnosis (ICD Code) Assessment Notes Treatment Notes Treatment Clinical Notes Section Notes 04/05/2024 Major depressive disorder, recurrent, mild (ICD-10 - F33.0) 04/05/2024 Generalized anxiety disorder (ICD-10 - F41.1) 12/29/2023 Major depressive disorder, recurrent, mild (ICD-10 - F33.0) 12/29/2023 Generalized anxiety disorder (ICD-10 - F41.1) 12/29/2023 Insomnia due to other mental disorder (ICD-10 - F51.05) 08/01/2024 Major depressive disorder, recurrent, mild (ICD-10 - F33.0) 08/03/2024 Major depressive disorder, recurrent, mild (ICD-10 - F33.0) SSRI/SNRI side effects discussed including but not limited to, gastric upset, nausea, vomiting, diarrhea and/or constipation, weight changes, sexual side effects including loss of libido, increased suicidal thoughts/behavior s in children and young adults, and serotonin syndrome. 12/01/2024 Encounter for screening for depression (ICD-10 - Z13.31) 12/01/2024 Major depressive disorder, recurrent, mild (ICD-10 - F33.0) SSRI/SNRI side effects discussed including but not limited to, gastric upset, nausea, vomiting, diarrhea and/or constipation, weight changes, sexual side effects including loss of libido, increased suicidal thoughts/behavior s in children and young adults, and serotonin syndrome. 08/03/2024 Generalized anxiety disorder (ICD-10 - F41.1) 04/05/2024 Insomnia due to other mental disorder (ICD-10 - F51.05) 08/03/2024 Insomnia due to other mental disorder (ICD-10 - F51.05) 12/01/2024 Generalized anxiety disorder (ICD-10 - F41.1) 12/01/2024 Insomnia due to other mental disorder (ICD-10 - F51.05) 04/05/2024 Other Overall feels stable, continue current medication. Refills sent in today. Patient educated on all medications including potential benefits, side effects, risks. Educated on proper dosing schedule and importance of compliance. [place] report checked and consistent with prescription history, no controlled substance prescriptions from other providers. 08/03/2024 Other Stable, declines need for medication adjustment. Refills sent in today. Patient educated on all medications including potential benefits, side effects, risks. Educated on proper dosing schedule and importance of compliance. [place] report checked and consistent with prescription history, no controlled substance prescriptions from other providers. 12/01/2024 Other Stable, declines need for med adjustment. Refills sent in today. Patient educated on all medications including potential benefits, side effects, risks. Educated on proper dosing schedule and importance of compliance. [place] report checked and consistent with prescription history, no controlled substance prescriptions from other providers. Offered counseling, declined at this time -Assessment and treatment plan reviewed with patient. -Compliance with treatment plan importance discussed. -Discussed the risks/benefits of this medication -Discussed medication side effects. -Contact office if symptoms worsen. -Discussed that it can take up to 6-8 weeks to see full therapeutic effects of psychotropic medications. -Crisis prevention hotline 988. Plan Of Treatment Next Appt Details Provider Name:Rosanne Yin, 03/28/2025 02:00:00 PM, [address], [facility] [address], [place], [address], Insurance Providers Payer Name Payer Address Payer Phone Subscriber Number Group Number Insured Name Patient Relationship to Insured Coverage Start Date Coverage End Date [employer] Medicare Replacemen t/Advantag e - Ppo [address] [place] [address] [id number] NOHELIA BENNETT Self - patient is the insured Medical (General) History Surgical History Surgery Date(Month/Year) Tonsilectomy/adenoids 09/14/1960 Hysterectomy (28332) 09/14/1986 Any surgical history 09/14/2014 Bariatric operative procedure ([id number] ) 09/14/2019
--- OUTSIDE RECORDS SUMMARY | 2024-12-07 13:24 | XMS_ITS | Patient Health Record ---
Author Organization [facility] Address [address] [facility] [address] [place], [place] [address] Care Team Providers Care It Compliance Manager Name Role Phone ZEUS SPARROW Unavailable [phone] Reason For Referral No Information Plan Of Treatment No Information
--- OUTSIDE RECORDS SUMMARY | 2024-12-07 13:25 | XMS_ITS | Referral Summary ---
Author Organization [facility] [address] [place] [address] [place] [address] Care Team Providers Care Machine Heel Builder Name Role Phone Meek Blanton MD Primary Care Provider [phone] Allergies Active Allergy Reactions Criticality Noted Date [...] (11/25/2021): Added automatically from request for surgery [id number] Social History Tobacco Use Types Packs/Day Years Used Date Smoking Tobacco: Never Smokeless Tobacco: Never Personal Safety Answer Date Recorded Getting School Help Needed Not on file 11/03 Comments Unknown Sex and Gender Information Value Date Recorded Sex Assigned at Not on file 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 Gender Identity Female 11/30/2021 6:57 PM CDT Sexual Orientation Not on file Last Filed Vital Signs Vital Sign Reading Time Taken Comments Blood Pressure 141/76 07/11/2019 12:19 PM CDT Pulse 76 07/11/2019 12:19 PM CDT Temperature - - Respiratory Rate 14 07/11/2019 12:19 PM CDT Oxygen Saturation - - Inhaled Oxygen Concentration - - Weight 68 kg (150 lb) 11/22/2021 2:28 PM FLORICULTURIST Height 163.8 cm (5' 4.5 ) 11/22/2021 2:28 PM FLORICULTURIST Body Mass Index 25.35 11/22/2021 2:28 PM FLORICULTURIST Plan of Treatment Not on file Insurance [employer] MEDICARE HEALTH [employer]IANCE MEDICARE HMO/PPO HEALTH ALLIANCE EXCHANGE [facility] MEDICARE HMO/PPO Care Teams Machine Heel Builder Relationship Specialty Start Date End Date Meek Blanton MD [address] [place] [address], [place] [address] PCP - General Family Medicine 06/05/17
--- OUTSIDE RECORDS SUMMARY | 2024-12-07 13:25 | XMS_ITS | Clinical Summary ---
Author Organization [facility] Address [address] [place] [address] Care Team Providers Care Pipeline Construction Inspector Name Role Phone Meek Blanton MD Primary Care Provider [phone] Source Comments [facility],non-owned Affiliates and Associated Physician Practices is amultiple site organization consisting of ambulatory clinics and hospital sitesin [place], [place], [place] and [place]. This disclosure is being madepursuant to the Care Everywhere program and may not contain all information available regarding this patient. Last updated 18.[facility] Allergies Active Allergy Reactions Criticality Noted Date Comments Morphine Other Medium 03/18/2018 States I get all keyed up Sulfamethoxazole W-Trimethoprim Swelling High 03/18/2018 Swelling of face Trimethoprim Unknown 08/13/2016 Medications * Be aware that medications may not be up to date on this document. Alwaysverify current medications with the patient. Medication Sig Dispensed Refills Start Date End Date Status ondansetron, disintegrating, (ZOFRAN ODT) 4 MG tablet Take 1 tablet by mouth every 6 hours as needed for Nausea/Vomiting Allow tablet to dissolve on the tongue 10 tablet 03/18/2018 Active Probiotic Product (PROBIOTIC PO) Take 1 tablet by mouth once daily as needed Active Latanoprost 0.005 % EMUL Instill 1 drop into both eyes at bedtime 11/29/2018 Active diphenhydrAMINE-APAP , sleep, (DIPHENHYDRAMINE-APA P PO) Take 25 mg by mouth as needed Active acetaminophen (TYLENOL) 325 MG tablet Take 325 mg by mouth as needed Active atorvastatin (LIPITOR) 40 MG tablet Take 40 mg by mouth once daily 01/10/2019 Active busPIRone (BUSPAR) 10 MG tablet Take 10 mg by mouth 3 times daily 11/29/2018 Active dicyclomine (BENTYL) 20 MG tablet Take 1 tablet by mouth as needed 0 03/10/2019 Active DULoxetine (CYMBALTA) 60 MG capsule Take 60 mg by mouth once daily 11/27/2018 Active lisinopril-hydroCHLO ROthiazide (PRINZIDE; ZESTORETIC) 20-25 MG tablet Take 1 tablet by mouth once daily 12/06/2018 Active omeprazole (PRILOSEC) 20 MG capsule Take 1 capsule by mouth 2 times daily 0 09/20/2018 Active timolol maleate (TIMOPTIC) 0.25 % ophthalmic solution Instill 1-2 drops into both eyes 2 times daily 11/30/2018 Active estradiol (ESTRACE) 0.1 MG/GM vaginal cream Insert 1g into the vagina nightly for 2 weeks. Then insert 1g into the vagina two times a week thereafter. 1 tube 3 08/08/2019 Active methenamine hippurate (HIPREX) 1 GM tablet Take 1 tablet by mouth 2 times daily 60 tablet 5 08/08/2019 Active Active Problems Problem Noted Date Diagnosed Date Elevated white blood cell count, unspecified 11/2019 Interstitial cystitis (chronic) with hematuria 1 09/18/2018 Urge incontinence 06/21/2019 Abnormal mammogram of left breast 12/16/2018 Resolved Problems Problem Noted Date Diagnosed Date Resolved Date UTI (urinary tract infection) 10/17/2019 10/31/2019 Family History Medical History Relation Name Comments CAD (Coronary Artery Disease) Mother Hypertension Mother Cancer - Uterine Other maternal aunt Relation Name Status Comments Mother Other maternal aunt Social History Tobacco Use Types Packs/Day Years Used Date Smoking Tobacco: Never Smokeless Tobacco: Never Alcohol Use Standard Drinks/Week Comments Not Currently 0 (1 standard drink = 0.6 oz pur e alcohol) Sex and Gender Information Value Date Recorded Sex Assigned at Not on file Gender Identity Not on file Sexual Orientation Not on file Last Filed Vital Signs Vital Sign Reading Time Taken Comments Blood Pressure 128/84 10/17/2019 1:48 PM MOTORCYCLE TESTER Pulse 88 03/18/2018 3:40 PM CDT Temperature 36.4 C (97.6 F) 03/18/2018 3:40 PM CDT Respiratory Rate 22 03/18/2018 3:40 PM CDT Oxygen Saturation 98% 03/18/2018 3:40 PM CDT Inhaled Oxygen Concentration - - Weight 102.3 kg (225 lb 9.6 oz) 10/17/2019 1:48 PM MOTORCYCLE TESTER Height 162.6 cm (5' 4 ) 10/17/2019 1:48 PM MOTORCYCLE TESTER Body Mass Index 38.72 10/17/2019 1:48 PM MOTORCYCLE TESTER Plan of Treatment Health Maintenance Due Date Last Done Comments BONE DENSITY TESTING 1950 COLOGUARD (AGES 45-75) - COL ON CA SCREENING [address] COLONOGRAPHY - COLON CA SCREENING 1950 FIT - COLON CA SCREENING 1950 FLEX SIG - COLON CA SCREENING 1950 MAMMOGRAM 1950 HEPATITIS C SCREENING 03/28/1968 DTAP/TDAP/TD VACCINES (1 - Tdap) 1969 PNEUMOCOCCAL VACCINE 50+ (1 of 1 - PCV) 2000 ZOSTER VACCINE (1 of 2) 2000 SCREENING FOR DIABETES 03/18/2021 03/18/2018 COVID-19 VACCINE (1 - 2023-2 5 season) 2024 INFLUENZA VACCINE (#1) 2024 7, 06/19/2016 DEPRESSION SCREENING 09/14/2024 Respiratory Syncytial Virus (RSV) Vaccine Pt: or over 60 yrs (1 - 1-dose 75+ series) 2025 COLONOSCOPY - COLON CA SCREENING 11/13/2026 11/13/2016 Colorectal Cancer Screening 11/13/2026 HEPATITIS B VACCINE Aged Out No longe r eligible based on patient's age to complete this topic HIB VACCINE Aged Out No longer eligi ble based on patient's age to complete this topic HPV VACCINE Aged Out No longer eligi ble based on patient's age to complete this topic MENINGOCOCCAL (Group B) VACCINE SHARED DECISION-MAKING Aged Out No longer eligible based on patient's age to complete this topic MENINGOCOCCAL GROUPS A/C/Y/W VACCINE Aged Out No longer eligible b ased on patient's age to complete this topic Procedures Procedure Name Priority Date/Time Associated Diagnosis Comments COMPREHENSIVE METABOLIC PANEL STAT 03/18/2018 4:41 PM CDT from Last 3 Months or Most Recently Relevant to Health Maintenance Results * (ABNORMAL) COMPREHENSIVE METABOLIC PANEL (03/18/2018 4:41 PM CDT) Sodium 141 136 - 145 mmol/L 03/18/2018 5:12 PM CDT [facility] Potassium 4.0 3.5 - 5.1 mmol/L 03/18/2018 5:12 PM CDT [facility] Chloride 110(H) 98 - 107 mmol/L 03/18/2018 5:12 PM CDT [facility] CO2 19(L) 22 - 29 mmol/L 03/18/2018 5:12 PM CDT [facility] Anion Gap 12 9 - 16 mmol/L 03/18/2018 5:12 PM CDT [facility] Glucose 116(H) 70 - 105 mg/dL 03/18/2018 5:12 PM CDT [facility] BUN 27(H) 9.8 - 20.1 mg/dL 03/18/2018 5:12 PM CDT [facility] Creatinine 0.92 0.57 - 1.11 mg/dL 03/18/2018 5:12 PM CDT [facility] BUN/Creatinine Ratio 29.3(H) 11.2 - 18.1 03/18/2018 5:12 PM CDT [facility] Calcium 8.9 8.4 - 10.2 mg/dL 03/18/2018 5:12 PM CDT [facility] Protein Total 7.2 6.4 - 8.3 gm/dL 03/18/2018 5:12 PM CDT [facility] Albumin 4.4 3.5 - 5.0 gm/dL 03/18/2018 5:12 PM CDT [facility] ALT 17 0 - 55 U/L 03/18/2018 5:12 PM CDT [facility] AST 17 5 - 34 U/L 03/18/2018 5:12 PM CDT [facility] Alkaline Phosphatase 177(H) 40 - 150 U/L 03/18/2018 5:12 PM CDT [facility] Bilirubin Total 0.6 0.2 - 1.2 mg/dL 03/18/2018 5:12 PM CDT [facility] Globulin Total 2.8 1.3 - 4.7 gm/dL 03/18/2018 5:12 PM CDT [facility] Albumin/Globulin Ratio 1.6 1.1 - 2.2 03/18/2018 5:12 PM CDT [facility] Osmolality Calculated 278 260 - 284 mOsm/kg 03/18/2018 5:12 PM CDT [facility] eGFR by MDRD >60 >60 mL/min/1.7 3m2 03/18/2018 5:12 PM CDT [facility] eGFR by MDRD >60 >60 mL/min/1.7 3m2 03/18/2018 5:12 PM CDT [facility] Blood BLOOD SPECIMEN / Unknown Venipuncture / Unknown 03/18/2018 4:41 PM CDT 03/18/2018 4:48 PM CDT Narrative [facility] - 03/18/2018 5:12 PM CDT ADA Comment: The [place] [employer] recommends a fasting glucose concentration of 99 mg/dL as the upper limit of normal. ADA Comment: The [place] [employer] recommends a fasting glucose concentration of 99 mg/dL as the upper limit of normal. Note:EGFR Reference Ranges have been established for adults between the ages of 18 and 70. STAGES OF CHRONIC KIDNEY DISEASE Stage Description EGFR 1. Kidney damage with normal or increased EGFR > or =90 mL/min/1.73 m 2. Kidney damage with mildly decreased EGFR 60-89 mL/min/1.73 m 3. Moderately decreased EGFR 30-59 mL/min/1.73 m 4. Severely decreased EGFR 15-29 mL/min/1.73 m 5. Kidney Failure EGFR <15 mL/min/1.73 m Ten Crowell MD LAB - CHEMISTRY ORDE HERNESTO [facility] Organization Address City/State/ZIP Co de Phone Number [facility] [address] [phone] from Last 3 Months or Most Recently Relevant to Health Maintenance Care Teams Pipeline Construction Inspector Relationship Specialty Start Date End Date Meek Blanton MD [address] [place] [id number] PCP - General 08/08/19
--- OUTSIDE RECORDS SUMMARY | 2024-12-07 13:25 | XMS_ITS | Clinical Summary ---
Author Organization [facility] Address [address] [place] [address] Phone Care Team Providers Care Community Aide Name Role Phone Meek Blanton MD Primary Care Provider [phone] Allergies Active Allergy Reactions Criticality Noted Date Comments Morphine Other (see Comments) Medium 03/18/2018 States I get all keyed up Sulfamethoxazole-Trim ethoprim Anaphylaxis,Swelling High 06/05/2017 Swelling of face Medications atorvastatin (LIPITOR) 40 MG Tablet Take 40 mg by mouth daily. 3 01/10/2019 Active busPIRone (BUSPAR) 10 MG Tablet TAKE 1 TABLET BY MOUTH THREE TIMES A DAY 11/29/2018 Active DULoxetine (CYMBALTA) [address] Particles TAKE 2 CAPSULES BY MOUTH EVERY MORNING 1 11/27/2018 Active latanoprost (XALATAN) 0.005 % Solution INSTILL 1 DROP INTO BOTH EYES AT BEDTIME 11 11/29/2018 Active lisinopril-hydr oCHLOROthiazide (PRINZIDE, ZESTORETIC) 20-25 MG Tablet Take 1 Tab by mouth daily. 6 12/06/2018 Active timolol (TIMOPTIC) 0.25 % Solution INSTILL 1 DROP INTO BOTH EYES AT BEDTIME 11/30/2018 Active diphenhydrAMINE HCl (BENADRYL PO) Take 25 mg by mouth Daily as needed. Active acetaminophen (TYLENOL) 325 MG Tablet Take 325 mg by mouth every 4 hours as needed. Active Probiotic Product (PROBIOTIC DAILY PO) Take by mouth. Active omeprazole (PRILOSEC) 40 MG CAPSULE DELAYED RELEASE Take 1 Cap by mouth 2 times daily. 180 Cap 3 05/27/2019 Active Family History Medical History Relation Name Comments Heart Attack Brother Cancer Father skin and stomac h Cancer Maternal Aunt uterine Heart Attack Mother Cancer Paternal Uncle pancreatic ca ncer Relation Name Status Comments Brother Father Alive Maternal Aunt Mother Alive Paternal Uncle Social History Tobacco Use Types Packs/Day Years Used Date Smoking Tobacco: Never Smokeless Tobacco: Never Alcohol Use Standard Drinks/Week Comments Not Currently 0 (1 standard drink = 0.6 oz pur e alcohol) AUDIT-C Answer Date Recorded Frequency of Alcohol Consumption Never 02/21/2019 Average Number of Drinks Not on file 019 Frequency of Binge Drinking Not on file 02/12 Comments No Sex and Gender Information Value Date Recorded Sex Assigned at Not on file 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 Gender Identity Not on file Sexual Orientation Not on file Last Filed Vital Signs Vital Sign Reading Time Taken Comments Blood Pressure 107/88 06/10/2019 11:11 AM CDT Pulse 67 06/10/2019 11:11 AM CDT Temperature 36 C (96.8 F) 06/10/2019 11:11 AM CDT Respiratory Rate 16 06/10/2019 11:11 AM CDT Oxygen Saturation 100% 06/10/2019 11:11 AM CDT Inhaled Oxygen Concentration - - Weight 103.4 kg (228 lb) 05/27/2019 10:54 AM CDT Height 165.1 cm (5' 5 ) 05/06/2019 9:00 AM CDT Body Mass Index 37.94 05/06/2019 9:00 AM CDT Plan of Treatment Health Maintenance Due Date Last Done Comments Hepatitis C Virus (HCV) Screening 1950 TdaP Immunization 1950 Cologuard 2000 Immunochemical Fecal Occult Blood 2000 Zoster Immunization (1 of 2) 2000 Pneumococcal Immunization (5 0+ years) (2 of 2 - PPSV23) 08/19/2018 08/19/2017 Colonoscopy 03/09/2024 03/09/2019 Colorectal Cancer Screening 03/09/2024 Influenza Immunization (#1) 2024 12/02/2017, 06/19/2016 SARS-COV-2 Immunization ( season) 2024 09/12/2021, 11/06/2020, 10/16/2020 Respiratory Syncytial Virus (RSV) Immunization (Adult) (1 - 1-dose 75+ series) 2025 03/09/2019 Pneumococcal Immunization Combined Discontinued 08/19/2017 Hepatitis B Immunization Aged Out No longer eligible based on patient's age to complete this topic Meningococcal Immunization (ACWY) Aged Out No longer eligible based on patient's age to complete this topic Rotavirus Immunization Aged Out No lo nger eligible based on patient's age to complete this topic Insurance MEDICARE [employer] Care Teams Community Aide Relationship Specialty Start Date End Date Meek Blanton MD [address] [place] [address] PCP - General Family Medicine 02/08/19
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
--- OUTSIDE RECORDS SUMMARY | 2024-12-07 13:25 | XMS_ITS ---
Author Organization [facility] Address [address] [place], [place] [id number] Care Team Providers Care Mission Support Specialist Name Role Phone ANDREWS ZEUS Unavailable [phone] REASON FOR VISIT *General care Encounters Encounter Location Date Provider Diagnosis [facility] [address] [place], [place] [address] 04/14/2024 ZEUS SPARROW Plan Of Treatment No Information Progress Notes * DONALDJoshuaOB: 0 (74 yo F)Acc No.[id number]:04/14/2024 Progress Notes Patient: Beatriz DENNIS Provider: eD SPARROW :1950 A ge:74 Y S ex:Female Date:04/14/2024 Address:[address] [facility] Subjective: * Chief Complaints: * 1 . *General care. * Medical History: Objective: * Vitals: Assessment: Plan: * Treatment: * Billing Information: * Visit Code: * Procedure Codes: * Electronic signature of ERIK SPARROW DPM on 12/07/2024 at 01:24 PM CDT Sign off status: Pending * Provider: De SPRAROW Date: 04/14/2024 Generated for Nader herring/Tory/Rufino on: 0 12/07/2024 01:24 PM CDT
== END 2024-12-07 12:15 | disposition home or self-care (01) ==
LOC: CHSLAB 12:16
PROVIDERS: PCP Family Medicine
DX: M85.80 Other specified disorders of bone density and structure, unspecified site (principal); R73.03 Prediabetes; Z98.84 Bariatric surgery status
CPT/HCPCS: 36415; 80053; 83036; 84443

== ENCOUNTER 2024-12-08 11:41 | Outpatient (CLI) | payer MEDICARE, SELFPAY ==
--- NOTE | ~2024-12-08 | DEXA_ITS ---
Bone Density Report Name: NOHELIA BENNETT Age: 74 Sex: Female Ethnicity: White Date of : 1950 Indication: postmenopausal osteoporosis; height loss; hysterectomy; Referring Provider: Pio Mike Study: Bone densitometry was performed. Exam Date: December 08, 2024 Accession number: [id number] Bone Density: Region BMD T-score Z-score Classification AP Spine(L1, L2, L3) 0.774 -2.2 0.1 Osteopenia Femoral Neck (Left) 0.485 -3.3 -1.2 Osteoporosis Total Hip (Left) 0.649 -2.4 -0.6 Osteopenia Femoral Neck (Right) 0.545 -2.7 -0.7 Osteoporosis Total Hip (Right) 0.678 -2.2 -0.4 Osteopenia Femoral Neck Mean 0.515 -3.0 -0.9 Osteoporosis Total Hip Mean 0.663 -2.3 -0.5 Osteopenia World Health Organization criteria for BMD impression classify patients as: Normal (T-score at or above -1.0), Osteopenia (T-score between -1.0 and -2.5), or Osteoporosis (T-score at or below -2.5). 10-year Fracture Risk: FRAX not reported because: Some T-score for Spine Total or Hip Total or Femoral Neck at or below -2.5 Previous Exams: Region Exam Age BMD T-score BMD Change BMD Change Date g/cm2 vs Baseline vs Previous AP Spine (L1-L3) 12/08/2024 74 0.774 -2.2 -0.029 (-3.7%) -0.029 (-3.7%) 11/06/2021 71 0.804 -1.9 Total Hip(Left) 12/08/2024 74 0.649 -2.4 0.037 (6.1%)* 0.037 (6.1%)* 11/06/2021 71 0.611 -2.7 Total Hip(Right) 12/08/2024 74 0.678 -2.2 0.003 (0.4%) 0.003 (0.4%) 11/06/2021 71 0.675 -2.2 *Denotes significance at 95% confidence level, LSC for AP Spine = 0.022 g/cm2, LSC for Total Hip = 0.027 g/cm2 Clinical Information Provided by Patient: Has used the following medications: Vitamin D Has the following medical conditions: Hysterectomy Patient maximum height was 65.5 Menopause Age: 38 Drinks caffeinated beverages Onset of menses at age 11 Number of children 2 Impression: The patient has osteoporosis, based on the Left Femoral Neck T-score. The BMD for the AP Spine (L1-L3) decreased, changing by -3.7% since the last DXA exam. Discussion: INCREASED RISK OF FRACTURE. BONE DENSITY IS UNDESIRABLY LOW AT ONE OR MORE SKELETAL SITES, CONSISTENT WITH POSTMENOPAUSAL OSTEOPOROSIS. This patient's lowest T-score meets the World Health Organization's (WHO) criteria for osteoporosis at one or more sites (T-score -2.5 or below). In untreated patients, the risk of osteoporotic fracture increases approximately two-fold for each 1.0 SD decrease in T-score. Low bone density is not the only risk factor for fracture; also consider factors such as patient's age, frailty or poor health, risk of falling, risk of injury, previous osteoporotic fracture, family history of osteoporosis, cigarette smoking, low body weight, etc. Not everyone with low bone mineral density has osteoporosis; osteomalacia and other metabolic bone disorders should also be considered. Patients who have osteoporosis should be evaluated for specific diseases and conditions (secondary causes) that may cause or contribute to bone loss. The [place] Association of Clinical Endocrinologists (AACE) and National Osteoporosis Foundation (NOF) recommend pharmacologic intervention for all postmenopausal women whose T-score is in this range. The patient should follow a healthful lifestyle (good nutrition with adequate calcium and vitamin D, and appropriate weight-bearing exercise). Follow-Up: Consider a repeat BMD and Vertebral Fracture Assessment (VFA) exam in 2 years or sooner if medically necessary, to reassess this patient's status. Reported by: TORITO on 12/08/2024 12:25:00 PM. Reviewed, dictated and finalized at location A.
--- NOTE | ~2024-12-08 | MM_ITS ---
EXAMINATION: MM screening [facility] HISTORY: Screening TECHNIQUE: Craniocaudal and mediolateral oblique 3-D tomosynthesis images were obtained and synthetic 2-D images were generated. CAD analysis was submitted and interpreted. COMPARISON: 11/06/2022 and dating back to 10/10/2016 BREAST PARENCHYMAL COMPOSITION: There are scattered areas of fibroglandular density. FINDINGS: Punctate calcifications are detected bilaterally, stable and benign in appearance. Stable parenchymal pattern without suspicious microcalcifications, architectural distortion, discrete masses or significant asymmetry. IMPRESSION: 1. No mammographic evidence of malignancy. 2. Recommend routine screening mammography in one year. BI-RADS Category 2: Benign finding(s). Reviewed, dictated and finalized at location A.
--- OUTSIDE RECORDS SUMMARY | 2024-12-08 12:58 | XMS_ITS | Patient Health Record ---
Author Organization [facility] Address [address] [facility] [address] [place], [place] [id number] Care Team Providers Care Blueprint Blocker Name Role Phone ZEUS SPARROW Unavailable [phone] Reason For Referral No Information Plan Of Treatment No Information
--- OUTSIDE RECORDS SUMMARY | 2024-12-08 12:58 | XMS_ITS ---
Author Organization [facility] [email or web address] Address [address] [facility] [address] [place] [address] Care Team Providers Care Shellfish Processing Laborer Name Role Phone Pio Mike DO Primary Care Provider Unavail Rosanne Gallegos Unavailable [phone] Allergies No Known Allergies REASON FOR VISIT follow up Medications Medication SIG (Take, Route, Frequency, Duration) Notes Start Date End Date Status DULoxetine HCl 60 MG 1 capsule Oral twice a day for 90 days Active ALPRAZolam 0.25 MG 1 tablet Oral Twice a day for 30 days as needed for anxiety 08/03/2024 Active Fluticasone Propionate Diskus 50 MCG/ACT Inhalation *Reorder from My eShoe for eRx and Interaction Alerts* 12/29/2023 Unknown [...] Female Encounters Encounter Location Date Provider Diagnosis [facility] [employer] 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 Has two children. Has two grandchildren and two great grandchildren. Retired in 2009. Born and raised in [place]. Father January 2023. Has two younger bothers. [...] of a nxiety, depressed mood. Adriana Galdamez [facility] for details. * Medical History: * Medications: [...] Inhalation , Notes to Pharmacist: *Reorder from [facility] for eRx and Interaction Alerts*Timolol Maleate 0.25 % Solution Ophthalmic Candesartan Cilexetil 32 MG Tablet Oral Atorvastatin Calcium 40 MG Tablet Oral Latanoprost 0.005 % Solution Ophthalmic Medication List reviewed and reconciled with the patientUnknown Fluticasone Propionate Diskus 50 MCG/ACT Aerosol Powder Breath Activated Inhalation , Notes to Pharmacist: *Reorder from [facility] for eRx and Interaction Alerts*Unknown Timolol Maleate [...] 9 6127 BEHAV ASSMT W/SCORE & DOCD/STAND [id number] VISIT COMPLEXITY INHERENT TO ONGOING CARE RELATED TO A PATIENT'S SINGLE, SERIOUS CONDITION OR A COMPLEX [id number] CLIN DEPRESSION SCREEN [id number] ACP DISCUSS-NO DSCNMKR DOCD * Follow Up: 4 Months (Reason: medication follow up) * Billing Information: * Visit Code: 64707 OFFICE OUTPATIENT VISIT 25 MINUTES DETAILED HISTORY AND EXAM/MODERATE MEDICAL DECISION MAKING. * Procedure Codes: 82802 BEHAV ASSMT W/SCORE & DOCD/STAND INSTRUMENT. G2211 VISIT COMPLEXITY INHERENT TO ONGOING CARE RELATED TO A PATIENT'S SINGLE, SERIOUS CONDITION OR A COMPLEX CONDITION. G8431 CLIN DEPRESSION SCREEN DOC. 1124F ACP DISCUSS-NO DSCNMKR DOCD. * T METAL JOURNEYMAN Sign off status: Completed true * Provider: CON SCOTT Date: 1 10/03/2023 Generated for Nader herring/Tory/Rogeritting on: 0 12/08/2024 12:58 PM CDT History and Physical Notes * [...] Mother lives with her-she is the primary computer technical support specialist. Has two children. Has two grandchildren and two great grandchildren. Retired in 2009. Born and raised in [place]. Father January 2023. Has two younger bothers. [...] Screening Findings: P ositve Follow-Up for Depression: [facility] treatment assessment, Patient follow-up to return when [...]
--- OUTSIDE RECORDS SUMMARY | 2024-12-08 12:58 | XMS_ITS | Clinical Summary ---
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
--- OUTSIDE RECORDS SUMMARY | 2024-12-08 12:58 | XMS_ITS | Clinical Summary ---
Author Organization [facility] [address] [place] [address] [place] [address] Care Team Providers Care Industrial Engineer Name Role Phone Meek Blanton MD Primary Care Provider [phone] Allergies Active Allergy Reactions Criticality Noted Date [...] (11/25/2021): Added automatically from request for surgery [id number] Surgical History Surgery Date Site/Laterality Comments HYSTERECTOMY [...] on file Legal Sex Female 8:26 AM SCIENCE INTERN Gender Identity Female 11/30/2021 6:57 PM CDT [...] 68 kg (150 lb) 11/22/2021 2:28 PM SCIENCE INTERN Height 163.8 cm (5' 4.5 ) 11/22/2021 2:28 PM SCIENCE INTERN Body Mass Index 25.35 11/22/2021 2:28 PM SCIENCE INTERN Plan of Treatment Health Maintenance Due Date [...] [employer] MEDICARE HMO/PPO Care Teams Industrial Engineer Relationship Specialty Start Date End Date Meek Blanton MD [address] [place] [address] PCP - General Family Medicine 06/05/17
--- OUTSIDE RECORDS SUMMARY | 2024-12-08 12:58 | XMS_ITS ---
Author Organization [facility] Address [address] [place], [place] [address] Care Team Providers Care Genetic Coordinator Name Role Phone ANDREWS ZEUS Unavailable [phone] REASON FOR VISIT *General care Encounters Encounter Location Date Provider [place] [facility] [address] [place], [place] [id number] 04/14/2024 ZEUS SPARROW Plan Of Treatment No Information Progress Notes * DONALDJoshuaOB: 0 (74 yo F)Acc No.[id number]:04/14/2024 Progress Notes Patient: Beatriz DENNIS Provider: De SPARROW :1950 A ge:74 Y S ex:Female Date:04/14/2024 Address:[address] [facility] Subjective: * Chief Complaints: * 1 . *General care. * Medical History: Objective: * Vitals: Assessment: Plan: * Treatment: * Billing Information: * Visit Code: * Procedure Codes: * Electronic signature of ERIK SPARROW DPM on 12/08/2024 at 12:58 PM CDT Sign off status: Pending * Provider: De SPARROW Date: 04/14/2024 Generated for Nader herring/Tory/Rufino on: 0 12/08/2024 12:58 PM CDT
--- OUTSIDE RECORDS SUMMARY | 2024-12-08 12:58 | XMS_ITS | Patient Health Record ---
Author Organization [facility] Address [address] [facility] [address] [place] [address] Care Team Providers Care Reaming Machine Operator Name Role Phone Pio Mike DO Primary Care Provider Unavail able Rosanne Yin Unavailable [phone] Migration, Provider Unavailable Unavailable Allergies No Known [...] Propionate Diskus 50 MCG/ACT Inhalation *Reorder from [employer] for eRx and Interaction Alerts* 12/29/2023 Unknown [...] Risk Notes Problem Mild recurrent major depression (38413921) Major depressive disorder, recurrent, mild (F33.0) Active confirmed Problem Generalized anxiety disorder (91789588) Generalized anxiety disorder (F41.1) Active confirmed Problem Insomnia disorder related to another mental disorder (68733226) Insomnia due to other mental disorder (F51.05) Active confirmed Vital Signs Heart Rate 54 /min 12/29/2023 Height-cm 162.56 cm 12/29/2023 Blood pressure diastolic 74 mm Hg 12/29/2023 Weight-kg 76.20 kg 12/29/2023 Height 64.00 in 12/29/2023 Blood pressure systolic 164 mm Hg 12/29/2023 Weight 168.00 lbs 12/29/2023 BMI 28.8 kg/m2 12/29/2023 Encounters Encounter Location Date Provider Diagnosis [facility] [place] [id number] [facility] [address] [address] 12/29/2023 Rosanne Yin Insomnia due to other mental disorder F51.05 ; Major depressive disorder, recurrent, mild F33.0 and Generalized anxiety disorder F41.1 [facility] [place] [address] [address] 04/05/2024 Rosanne Yin Major depressive disorder, recurrent, mild F33.0 ; Generalized anxiety disorder F41.1 and Insomnia due to other mental disorder F51.05 [facility] [place] [address] [address] 08/03/2024 Rosanne Humphrey Major depressive disorder, recurrent, mild F33.0 ; Generalized anxiety disorder F41.1 and Insomnia due to other mental disorder F51.05 [facility] [place] [address] [address] 12/01/2024 Rosanne Yin Encounter for screening for depression Z13.31 ; Major depressive disorder, recurrent, mild F33.0 ; Generalized anxiety disorder F41.1 and Insomnia due to other mental disorder F51.05 [facility] [address] [place] [address] [address] 01/19/2024 Provider Migration [address] [address] 01/20/[address] [address] 01/30/[address] [address] 01/31/[address] [address] 08/01/2024 Rosanne Yin Major depressive disorder, recurrent, [...] Details Provider Name:Rosanne Yin, 03/28/2025 02:00:00 PM, [address], [facility], [place], [address], Insurance Providers Payer Name Payer Address Payer Phone Subscriber Number Group Number Insured Name Patient Relationship to Insured Coverage Start Date Coverage End Date [employer] Medicare Replacemen t/Advantag e - Ppo [address] [place] [address] [id number] NOHELIA BENNETT Self - patient is the insured Medical (General) History Surgical History Surgery Date(Month/Year) Tonsilectomy/adenoids 09/14/1960 Hysterectomy (66887) 09/14/1986 Any surgical history 09/14/2014 Bariatric operative procedure (332420194 ) 09/14/2019
--- OUTSIDE RECORDS SUMMARY | 2024-12-08 12:58 | XMS_ITS ---
Author Organization [facility] Address [address] [facility] [address] [place] [address] Care Team Providers Care Agriculture Sales Account Manager Name Role Phone Pio Mike DO Primary Care Provider Unavail able Rosanne Yin Unavailable [phone] Allergies No Known Allergies REASON FOR VISIT follow up Medications Medication SIG (Take, Route, Frequency, Duration) Notes Start Date End Date Status traZODone HCl 50 MG 1-2 tablet at bedtime Oral Once a day for 90 days Active Fluticasone Propionate Diskus 50 MCG/ACT Inhalation *Reorder from [employer] for eRx and Interaction Alerts* 12/29/2023 Unknown [...] Nonsmoker Encounters Encounter Location Date Provider Diagnosis [facility] [address] [place] [address] 12/01/2024 Rosanne Humphrey Encounter for screening for [...] effects of psychotropic medications. -Crisis prevention hotline 728. Plan Of Treatment Medication Medication Name Sig [...] proper dosing schedule and importance of compliance. [place] PDMP report checked and consistent with prescription history, no controlled substance prescriptions from other providers. Offered counseling, declined at this time Next Appt Details Follow Up: 4 Months, Reason: medication follow up. 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 Has two children. Has two grandchildren and two great grandchildren. Retired in 2009. Born and raised in [place]. Father January 2023. Has two younger bothers. [...] of a nxiety, depressed mood. Adriana Galdamez [facility] for details. * Medical History: * Medications: [...] Inhalation , Notes to Pharmacist: *Reorder from [employer] for eRx and Interaction Alerts*Timolol Maleate 0.25 % Solution Ophthalmic Candesartan Cilexetil 32 MG Tablet Oral Atorvastatin Calcium 40 MG Tablet Oral Latanoprost 0.005 % Solution Ophthalmic Medication List reviewed and reconciled with the patientUnknown Fluticasone Propionate Diskus 50 MCG/ACT Aerosol Powder Breath Activated Inhalation , Notes to Pharmacist: *Reorder from [employer] for eRx and Interaction Alerts*Unknown Timolol Maleate [...] effects of psychotropic medications. -Crisis prevention hotline 228. * Procedure Codes: 9 6131 BEHAV ASSMT W/SCORE & DOCD/STAND [id number] Doc med rsn no funct [id number] No funct stat perf, rsn [id number] VISIT COMPLEXITY INHERENT TO ONGOING CARE RELATED TO A PATIENT'S SINGLE, SERIOUS CONDITION OR A COMPLEX [id number] CLIN DEPRESSION SCREEN DOC * Follow Up: 4 Months (Reason: medication follow up. medication follow up) * Billing Information: * Visit Code: 31430 OFFICE OUTPATIENT VISIT 25 MINUTES DETAILED HISTORY AND EXAM/MODERATE MEDICAL DECISION MAKING. Modifiers: 95 * Procedure Codes: 23600 BEHAV ASSMT W/SCORE & DOCD/STAND INSTRUMENT. G9917 Doc med rsn no funct status. G9918 No funct stat perf, rsn nos. G2211 VISIT COMPLEXITY INHERENT TO ONGOING CARE RELATED TO A PATIENT'S SINGLE, SERIOUS CONDITION OR A COMPLEX CONDITION. G8431 CLIN DEPRESSION SCREEN DOC. * Sign off status: Completed true * Provider: CON SCOTT Date: 0 12/01/2024 Generated for Nader herring/Tory/Rogeritting on: 0 12/08/2024 [...] Mother lives with her-she is the primary oliver filter operator. Has two children. Has two grandchildren and two great grandchildren. Retired in 2009. Born and raised in [place]. Father January 2023. Has two younger bothers. [...] Screening Findings: P ositve Follow-Up for Depression: [facility] treatment assessment, Patient follow-up to return [...]
--- OUTSIDE RECORDS SUMMARY | 2024-12-08 12:58 | XMS_ITS ---
Author Organization [facility] [email or web address] [facility] Address [address] [place] [address] Care Team Providers Care Edge Baster Name Role Phone Pio Mike DO Primary Care Provider Unavail Rosanne Gallegos Unavailable [phone] REASON FOR VISIT Medication check Medications Medication SIG (Take, Route, Fr equency, Duration) Notes Start Date End Date Status DULoxetine HCl 60 MG 1 capsule Oral twic e a day for 90 days 12/29/2023 Active Social History Sex Assigned At : Social History Observation Description Sex Assigned At Female Encounters En[facility] [address] [place] [address] 08/01/2024 Rosanne Yin Major depressive disorder, recurrent, [...] Details Provider Name:Rosanne Yin, 03/28/2025 02:00:00 PM, [address], [address], [place], [address], Progress Notes * WU BENNETTOB: 0 (74 yo F)Acc No.[id number]:08/01/2024 Patient: Iram BARRIOS NOHELIA :1950 A ge:74 Y S ex:Female Address:[address] [place] [address], [address] * Refills Refill DULoxetine HCl Capsule Delayed Release Particles, 60 MG, Oral, 180, 1 capsule, twice a day, 90 days, Refills=0 * true * Date: Generated for Nader herring/Tory/Rogeritting on: 0 12/08/2024 12:58 PM CDT
--- OUTSIDE RECORDS SUMMARY | 2024-12-08 12:58 | XMS_ITS | Clinical Summary ---
Author Organization [facility] [email or web address] Address [address] [place] [address] Care Team Providers Care Retail Field Supervisor Name Role Phone Meek Blanton MD Primary Care Provider Source Comments [facility] [email or web address],non-owned Affiliates and Associated Physician Practices is amultiple site organization consisting of ambulatory clinics and hospital sitesin [place], [place], [place] and [place]. This disclosure is being madepursuant to the Care Everywhere program and may not contain all information available regarding this patient. Last updated 18.[facility] [email or web address] Allergies Active Allergy Reactions Criticality Noted Date [...] Comments Blood Pressure 128/84 10/17/2019 1:48 PM COLLAR STITCHER Pulse 88 03/18/2018 3:40 PM CDT Temperature 36.4 C (97.6 F) 03/18/2018 3:40 PM CDT Respiratory Rate 22 03/18/2018 3:40 PM CDT Oxygen Saturation 98% 03/18/2018 3:40 PM CDT Inhaled Oxygen Concentration - - Weight 102.3 kg (225 lb 9.6 oz) 10/17/2019 1:48 PM COLLAR STITCHER Height 162.6 cm (5' 4 ) 10/17/2019 1:48 PM COLLAR STITCHER Body Mass Index 38.72 10/17/2019 1:48 PM COLLAR STITCHER Plan of Treatment Health Maintenance Due Date [...] 03/18/2018 5:12 PM CDT ADA Comment: The [place] Diabetes Association recommends a fasting glucose concentration of 99 mg/dL as the upper limit of normal. ADA Comment: The [place] Diabetes Association recommends a fasting glucose concentration [...] Crowell MD LAB - CHEMISTRY ORDE HERNESTO [facility] Organization Address City/State/ZIP Co de Phone Number [facility] [address] [phone] from Last 3 Months or Most Recently Relevant to Health Maintenance Care Teams Retail Field Supervisor Relationship Specialty Start Date End Date Meek Blanton MD [address] [place] [address] PCP - General 08/08/19
--- OUTSIDE RECORDS SUMMARY | 2024-12-08 12:58 | XMS_ITS | Referral Summary ---
Author Organization [facility] [address] [place] [address] [place] [address] Care Team Providers Care Electric Motor Repairman Name Role Phone Meek Blanton MD Primary Care Provider [phone] Allergies Active Allergy Reactions Criticality Noted Date [...] (11/25/2021): Added automatically from request for surgery [id number] Social History Tobacco Use Types Packs/Day Years Used Date Smoking Tobacco: Never Smokeless Tobacco: Never Personal Safety Answer Date Recorded Getting School Help Needed Not on file 11/03 Comments Unknown Sex and Gender Information Value Date Recorded Sex Assigned at Not on file Legal Sex Female 8:26 AM 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 Gender Identity Female 11/30/2021 6:57 PM CDT Sexual Orientation Not on file Last Filed Vital Signs Vital Sign Reading Time Taken Comments Blood Pressure 141/76 07/11/2019 12:19 PM CDT Pulse 76 07/11/2019 12:19 PM CDT Temperature - - Respiratory Rate 14 07/11/2019 12:19 PM CDT Oxygen Saturation - - Inhaled Oxygen Concentration - - Weight 68 kg (150 lb) 11/22/2021 2:28 PM 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 Height 163.8 cm (5' 4.5 ) 11/22/2021 2:28 PM 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 Body Mass Index 25.35 11/22/2021 2:28 PM 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 Plan of Treatment Not on file Insurance [email or web address] MEDICARE HEALTH ALLIANCE MEDICARE HMO/PPO HEALTH ALLIANCE EXCHANGE [facility] MEDICARE HMO/PPO Care Teams Electric Motor Repairman Relationship Specialty Start Date End Date Meek Blanton MD [address] [place] [address], [place] [address] PCP - General Family Medicine 06/05/17
--- OUTSIDE RECORDS SUMMARY | 2024-12-08 12:58 | XMS_ITS | Clinical Summary ---
Author Organization [facility] Address [address] [place] [address] Care Team Providers Care Title Camera Operator Name Role Phone RashidJuanitajuani GRIFFIN Primary Care Provider [phone] Allergies Active Allergy Reactions Criticality Noted Date [...] on file Legal Sex Female 3:17 PM OPTICAL TECHNICIAN Gender Identity Not on file Sexual Orientation [...] [facility] Care Teams Title Camera Operator Relationship Specialty Start Date End Date Pio Mike DO [address] [place] [address] PCP - General FAMILY PRACTICE 03/28/20
== END 2024-12-08 11:42 | disposition home or self-care (01) ==
PROVIDERS: PCP Family Medicine; Visit Provider Family Medicine
DX: Z12.31 Encounter for screening mammogram for malignant neoplasm of breast (principal); Z78.0 Asymptomatic menopausal state; M85.89 Other specified disorders of bone density and structure, multiple sites; M81.0 Age-related osteoporosis without current pathological fracture
CPT/HCPCS: 77063; 77067; 77080

== ENCOUNTER 2025-04-10 08:55 | Outpatient (CLI) | payer MEDICARE, SELFPAY ==
--- OUTSIDE RECORDS SUMMARY | 2025-04-10 09:09 | XMS_ITS | Patient Health Record ---
Author Organization [facility] As [employer] Address [address] [facility] [address] [place] [address] Care Team Providers Care Top Trimmer Name Role Phone Pio Mike DO Primary Care Provider Unavail able Rosanne Simons Unavailable [phone] Allergies No Known Allergies Reason For Referral No Information Medications Medication SIG (Take, Route, Frequency, Duration) Notes Start Date End Date Status Fluticasone Propionate Diskus 50 MCG/ACT Inhalation *Reorder from [employer]™ Interactive for eRx and Interaction Alerts* 12/29/2023 Unknown Timolol Maleate 0.25 % Ophthalmic 12/29/2023 Unknown ALPRAZolam 0.25 MG 1 tablet Oral Twice a day; Duration: 30 days as needed for anxiety 03/28/2025 Active DULoxetine HCl 60 MG 1 capsule Oral twice a day; Duration: 90 days Active Candesartan Cilexetil 32 MG Oral 12/29/2023 Unknown traZODone HCl 50 MG 1-2 tablet at bedtime Oral Once a day; Duration: 90 days As needed Active Atorvastatin Calcium 40 MG Oral 12/29/2023 Unknown Latanoprost 0.005 % Ophthalmic 12/29/2023 Unknown Zepbound 2.5 MG/0.5ML 0.5 mL Subcutaneous Active traZODone HCl 50 MG 1-2 tablet at bedtime Oral Once a day; Duration: 90 days Active Social History Tobacco Use: Social History Observation Description Date Details (start date - stop date) Never Smoker NA - NA Sex Assigned At : Social History Observation Description Sex Assigned At Female Tobacco Control (Standard) Question Answer Notes Tobacco use: Nonsmoker Problems Problem Type SNOMED Code ICD Code Onset Dates Problem Status W/U Status Risk Notes Problem Mild recurrent major depression (85981777) Major depressive disorder, recurrent, mild (F33.0) Active confirmed Problem Generalized anxiety disorder (18572037) Generalized anxiety disorder (F41.1) Active confirmed Problem Insomnia disorder related to another mental disorder (27990676) Insomnia due to other mental disorder (F51.05) Active confirmed Encounters Encounter Location Date Provider Diagnosis [facility] [place] [employer] [facility] [address] [facility] [address] [place] [address] 08/03/2024 Rosanne Simons Major depressive disorder, recurrent, mild F33.0 ; Generalized anxiety disorder F41.1 and Insomnia due to other mental disorder F51.05 [facility] [place] [facility] [place] [address] [facility] [address] [place] [address] 12/01/2024 Rosanne Simons Encounter for screening for depression Z13.31 ; Major depressive disorder, recurrent, mild F33.0 ; Generalized anxiety disorder F41.1 and Insomnia due to other mental disorder F51.05 [facility] [place] [facility] [address] [address] 03/28/2025 Rosanne Simons Encounter for screening for depression Z13.31 ; Major depressive disorder, recurrent, mild F33.0 ; Generalized anxiety disorder F41.1 and Insomnia due to other mental disorder F51.05 [facility] [place] [facility] [place] [facility] [address] [address] 08/01/2024 Rosanne Simons Major depressive disorder, recurrent, mild F33.0 Assessments [...] for screening for depression (ICD-10 - Z13.31) 03/28/2025 Encounter for screening for depression (ICD-10 - Z13.31) 03/28/2025 Major depressive disorder, recurrent, mild (ICD-10 - F33.0) SSRI/SNRI side effects discussed including but not limited to, gastric upset, nausea, vomiting, diarrhea and/or constipation, weight changes, sexual side effects including loss of libido, increased suicidal thoughts/behavior s in children and young adults, and serotonin syndrome. 08/03/2024 Generalized anxiety disorder (ICD-10 - F41.1) 12/01/2024 Major depressive disorder, recurrent, mild (ICD-10 - F33.0) SSRI/SNRI side effects discussed including but not limited to, gastric upset, nausea, vomiting, diarrhea and/or constipation, weight changes, sexual side effects including loss of libido, increased suicidal thoughts/behavior s in children and young adults, and serotonin syndrome. 12/01/2024 Generalized anxiety disorder (ICD-10 - F41.1) 08/03/2024 Insomnia due to other mental disorder (ICD-10 - F51.05) 03/28/2025 Generalized anxiety disorder (ICD-10 - F41.1) 03/28/2025 Insomnia due to other mental disorder (ICD-10 - F51.05) 12/01/2024 Insomnia due to other mental disorder [...] of psychotropic medications. -Crisis prevention hotline 988. 03/28/2025 Other Stable on current medication regimen, continue at current doses. -Refills sent in today -No concerns today Patient educated on all medications including potential benefits, side effects, risks. Educated on proper dosing schedule and importance of compliance. [place] PDMP report checked and consistent with prescription history, no controlled substance prescriptions from other providers. Supportive therapy provided -Assessment and treatment plan reviewed with patient. -Compliance with treatment plan importance discussed. -Discussed the risks/benefits of this medication -Discussed medication side effects. -Contact office if symptoms worsen. -Discussed that it can take up to 6-8 weeks to see full therapeutic effects of psychotropic medications. -Crisis prevention hotline 518. Plan Of Treatment Next Appt Details Provider Name:Rosanne El montgomery, 08/03/2025 02:00:00 PM, [address], [address], [place], [address], Insurance Providers Payer Name Payer Address Payer Phone Subscriber Number Group Number Insured Name Patient Relationship to Insured Coverage Start Date Coverage End Date A[employer]na Medicare Replacemen t/Advantag e - Ppo [address] [place] [address] [id number] NOHELIA BENNETT Self - patient is the insured Medical (General) History Surgical History Surgery Date(Month/Year) Tonsilectomy/adenoids 09/14/1960 Hysterectomy (44265) 09/14/1986 Any surgical history 09/14/2014 Bariatric operative procedure ([id number] ) 09/14/2019
--- OUTSIDE RECORDS SUMMARY | 2025-04-10 09:09 | XMS_ITS | Patient Health Record ---
Author Organization [facility] Address [address] [facility] [address] [place], [place] [id number] Care Team Providers Care Senior Customer Service Representative Name Role Phone ZEUS SPARROW Unavailable [phone] Reason For Referral No Information Plan Of Treatment No Information
--- OUTSIDE RECORDS SUMMARY | 2025-04-10 09:09 | XMS_ITS | Clinical Summary ---
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 Gender Identity Not on file Sexual [...] 2:21 PM CDT Height 165.1 cm (5' 5) 04/03/2020 2:21 PM CDT Body Mass Index 36.88 04/03/2020 2:21 PM CDT Plan of Treatment Health Maintenance Due Date Last Done Comments Colorectal Cancer Screening Colonoscopy (10 Years) 1950 Hepatitis C 1968 DTaP, Tdap and Td Vaccines ( 1 - Tdap) 1969 Zoster Vaccines (1 of 2) 2000 Annual Medicare Wellness Visit 2015 Dexa Scan (General) 2015 Pneumococcal Vaccine: 50+ Ye ars (2 of 2 - PPSV23) 08/19/2018 08/19/2017 COVID-19 Vaccine (2023-2 5 season) 2024 RSV Immunization or 60+ Years (1 - 1-dose 75+ series) 2025 Meningococcal B Vaccine Aged Out No l onger eligible based on patient's age to complete this topic Meningococcal Vaccine Aged Out No freddie markus eligible based on patient's age to complete this topic RSV Immunizations Under 20 Months Aged Out No longer eligible based on patient's age to complete this topic Insurance HE[employer]IANCE Care Teams Right Of Way Buyer Relationship Specialty Start Date End Date Pio Mike DO [address] [place] [address] PCP - General FAMILY PRACTICE 03/28/20
--- OUTSIDE RECORDS SUMMARY | 2025-04-10 09:10 | XMS_ITS | Clinical Summary ---
Author Organization [facility] Address [address] [place] [address] Phone Care Team Providers Care Ornamental Machine Operator Name Role Phone Meek Blanton MD Primary Care Provider [phone] Allergies Active Allergy Reactions Criticality Noted Date [...] on file Legal Sex Female 10:14 PM IT NETWORK ADMINISTRATOR Gender Identity Not on file Sexual Orientation [...] 10:54 AM CDT Height 165.1 cm (5' 5) 05/06/2019 9:00 AM CDT Body Mass Index 37.94 05/06/2019 9:00 AM CDT Plan of Treatment Health Maintenance Due Date Last Done Comments Hepatitis C Virus (HCV) Screening 1950 TdaP Immunization 1950 Cologuard 1995 Immunochemical Fecal Occult Blood 1995 Zoster Immunization (1 of 2) 2000 Pneumococcal Immunization (5 0+ years) (2 of 2 - PPSV23) 08/19/2018 08/19/2017 Colonoscopy 03/09/2024 03/09/2019 Colorectal Cancer Screening 03/09/2024 SARS-COV-2 Immunization ( season) 2024 09/12/2021, 11/06/2020, 10/16/2020 Respiratory Syncytial Virus (RSV) Immunization (Adult) (1 - 1-dose 75+ series) 2025 Influenza Immunization (#1) 2025 12/0 02/2017, 06/19/2016 Pneumococcal Immunization Combined Discontinued 08/19/2017 Hepatitis B Immunization Aged Out No longer eligible based on patient's age to complete this topic Human Papillomavirus (HPV) Immunization Aged Out No longer eligible based on patient's age to complete this topic Meningococcal Immunization (ACWY) Aged Out No longer eligible based on patient's age to complete this topic Rotavirus Immunization Aged Out No lo nger eligible based on patient's age to complete this topic Insurance MEDICARE C [employer]IANCE Care Teams Ornamental Machine Operator Relationship Specialty Start Date End Date Meek Blanton MD [address] [place] [address] PCP - General Family Medicine 02/08/19
--- OUTSIDE RECORDS SUMMARY | 2025-04-10 09:10 | XMS_ITS | Referral Summary ---
Author Organization [facility] [address] [place] [address] [place] [address] Care Team Providers Care Decorating Supervisor Name Role Phone Meek Blanton MD Primary Care Provider [phone] Allergies Active Allergy Reactions Criticality Noted Date [...] (11/25/2021): Added automatically from request for surgery [id number] Social History Tobacco Use Types Packs/Day Years Used Date Smoking Tobacco: Never Smokeless Tobacco: Never Personal Safety Answer Date Recorded Getting School Help Needed Not on file 11/03 Comments Unknown Sex and Gender Information Value Date Recorded Sex Assigned at Not on file Legal Sex Female 8:26 AM LOCK FITTER Gender Identity Female 11/30/2021 6:57 PM CDT Sexual Orientation Not on file Last Filed Vital Signs Vital Sign Reading Time Taken Comments Blood Pressure 141/76 07/11/2019 12:19 PM CDT Pulse 76 07/11/2019 12:19 PM CDT Temperature - - Respiratory Rate 14 07/11/2019 12:19 PM CDT Oxygen Saturation - - Inhaled Oxygen Concentration - - Weight 68 kg (150 lb) 11/22/2021 2:28 PM LOCK FITTER Height 163.8 cm (5' 4.5) 11/22/2021 2:28 PM LOCK FITTER Body Mass Index 25.35 11/22/2021 2:28 PM LOCK FITTER Plan of Treatment Not on file Insurance [employer] ALLIANCE MEDICARE HEALTH ALLIANCE MEDICARE HMO/PPO HEALTH ALLIANCE EXCHANGE [facility] MEDICARE HMO/PPO Care Teams Decorating Supervisor Relationship Specialty Start Date End Date Meek Blanton MD [address] [place] [address], [place] [address] PCP - General Family Medicine 06/05/17
--- OUTSIDE RECORDS SUMMARY | 2025-04-10 09:10 | XMS_ITS | Clinical Summary ---
Author Organization [facility] Address [address] [place] [address] Care Team Providers Care Sand Hauler Name Role Phone Meek Blanton MD Primary Care Provider Source Comments [facility],non-owned Affiliates and Associated Physician Practices is amultiple site organization consisting of ambulatory clinics and hospital sitesin [place], [place], [place] and [place]. This disclosure is being madepursuant to the Care Everywhere program and may not contain all information available regarding this patient. Last updated 18.[facility] Allergies Active Allergy Reactions Criticality Noted Date Comments Morphine Other Medium 03/18/2018 States I get all keyed up Sulfamethoxazole W-Trimethoprim Swelling High 03/18/2018 Swelling of face Trimethoprim Unknown 08/13/2016 Medications * Be aware that medications may not be up to date on this document. Alwaysverify current medications with the patient. ondansetron, disintegrating, (ZOFRAN ODT) 4 MG tablet Take 1 tablet by mouth every 6 hours as needed for Nausea/Vomiti ng Allow tablet to dissolve on the tongue 10 tablet 03/18/2018 Active Probiotic Product (PROBIOTIC PO) Take 1 tablet by mouth once daily as needed Active Latanoprost 0.005 % EMUL Instill 1 drop into both eyes at bedtime 11/29/2018 Active diphenhydrAMINE -APAP, sleep, (DIPHENHYDRAMIN E-APAP PO) Take 25 mg by mouth as [...] mg by mouth once daily 11/27/2018 Active lisinopril-hydr oCHLOROthiazide (PRINZIDE; ZESTORETIC) 20-25 MG tablet Take 1 [...] drink = 0.6 oz pur e alcohol) Comments No Sex and Gender Information Value Date Recorded Sex Assigned at Not on file Legal Sex Female 3:31 PM CDT Gender Identity Not on file Sexual Orientation Not on file Last Filed Vital Signs Vital Sign Reading Time Taken Comments Blood Pressure 128/84 10/17/2019 1:48 PM MACHINERY MECHANIC Pulse 88 03/18/2018 3:40 PM CDT Temperature 36.4 C (97.6 F) 03/18/2018 3:40 PM CDT Respiratory Rate 22 03/18/2018 3:40 PM CDT Oxygen Saturation 98% 03/18/2018 3:40 PM CDT Inhaled Oxygen Concentration - - Weight 102.3 kg (225 lb 9.6 oz) 10/17/2019 1:48 PM MACHINERY MECHANIC Height 162.6 cm (5' 4) 10/17/2019 1:48 PM MACHINERY MECHANIC Body Mass Index 38.72 10/17/2019 1:48 PM MACHINERY MECHANIC Plan of Treatment Health Maintenance Due Date Last Done Comments BONE DENSITY TESTING 1950 COLOGUARD (AGES 45-75) - COL ON CA SCREENING 1950 CT COLONOGRAPHY - COLON CA SCREENING 1950 FIT - COLON CA SCREENING 1950 FLEX SIG - COLON CA SCREENING 1950 MAMMOGRAM 1950 HEPATITIS C SCREENING 03/28/1968 DTAP/TDAP/TD VACCINES (1 - Tdap) 1969 PNEUMOCOCCAL VACCINE 50+ (1 of 1 - PCV) 2000 ZOSTER VACCINE (1 of 2) 2000 SCREENING FOR DIABETES 03/18/2021 03/18/2018 COVID-19 VACCINE (1 - 2023-2 5 season) 2024 DEPRESSION SCREENING 09/14/2024 Respiratory Syncytial Virus (RSV) Vaccine Pt: or over 60 yrs (1 - 1-dose 75+ series) 2025 INFLUENZA VACCINE (#1) 2025 7, 06/19/2016 COLON MONITORING 11/13/2026 11/13/2016 COLONOSCOPY - COLON CA SCREENING 11/13/2026 11/13/2016 [...] 03/18/2018 5:12 PM CDT ADA Comment: The [place] Diabetes Association recommends a fasting glucose concentration of 99 mg/dL as the upper limit of normal. ADA Comment: The [place] Diabetes Association recommends a fasting glucose concentration [...] m Ten Crowell MD LAB - CHEMISTRY ORDERABLES Final Result [facility] [address] [place] [address], [facility] [phone] from Last 3 Months or Most Recently Relevant to Health Maintenance Insurance [employer] Care Teams Sand Hauler Relationship Specialty Start Date End Date Meek Blanton MD [address] [place] [address] PCP - General 08/08/19
--- OUTSIDE RECORDS SUMMARY | 2025-04-10 09:10 | XMS_ITS | Clinical Summary ---
Author Organization [facility] [address] [place] [address] [place] [address] Care Team Providers Care Package Sealer Name Role Phone Meek Blanton MD Primary Care Provider [phone] Allergies Active Allergy Reactions Criticality Noted Date [...] (11/25/2021): Added automatically from request for surgery [id number] Surgical History Surgery Date Site/Laterality Comments HYSTERECTOMY [...] on file Legal Sex Female 8:26 AM CASINO CONTROLLER Gender Identity Female 11/30/2021 6:57 PM CDT [...] 68 kg (150 lb) 11/22/2021 2:28 PM CASINO CONTROLLER Height 163.8 cm (5' 4.5) 11/22/2021 2:28 PM CASINO CONTROLLER Body Mass Index 25.35 11/22/2021 2:28 PM CASINO CONTROLLER Plan of Treatment Health Maintenance Due Date Last Done Comments Colon Cancer Screening-Colonoscopy 1950 Depression Screening 1950 Fall Risk Assessment 1950 Hepatitis C Screening 1950 Osteoporosis Screening-Bone Density Scan 1950 DTaP/Tdap/Td Vaccine (1 - Tdap) 1961 Hepatitis B Screening 1968 Zoster Vaccine (1 of 2) 2000 Well Visit 65+ 2015 Pneumococcal vaccine 65+ (2 of 2 - PPSV23) 08/19/2018 08/19/2017 Covid-19 Vaccine (2023-2 5 season) 2024 09/12/2021, 11/06/2020, 10/16/2020 Influenza Vaccine (#1) 2025 2, 08/19/2017, 06/19/2016, Additional history exists Insurance HE[employer]IANCE MEDICARE HEALTH ALLIANCE MEDICARE HMO/PPO HEALTH ALLIANCE EXCHANGE [facility] MEDICARE HMO/PPO Care Teams Package Sealer Relationship Specialty Start Date End Date Meek Blanton MD [address] [place], [place] [id number] PCP - General Family Medicine 06/05/17
--- OUTSIDE RECORDS SUMMARY | 2025-04-10 09:10 | XMS_ITS ---
Author Organization [facility] Address [address] [place], [place] [id number] Care Team Providers Care Patient'S Librarian Name Role Phone ANDREWS ZEUS Unavailable [phone] REASON FOR VISIT *General care Encounters Encounter Location Date Provider Diagnosis [facility] [address] [place], [place] [id number] 04/14/2024 ZEUS SPARROW Plan Of Treatment No Information Progress Notes * Joshua MORGANOB: 0 (75 yo F)Acc No.[id number]:04/14/2024 Progress Notes Patient: Beatriz DENNIS Provider: De SPARROW :1950 A ge:74 Y S ex:Female Date:04/14/2024 Address:[address] [facility] Subjective: * Chief Complaints: * 1 . *General care. * Medical History: Objective: * Vitals: Assessment: Plan: * Treatment: * Billing Information: * Visit Code: * Procedure Codes: * Electronic signature of ERIK SPARROW DPM on 04/10/2025 at 09:09 AM CDT Sign off status: Pending * Provider: De SPARROW Date: 04/14/2024 Generated for Nader herring/Tory/Rufino on: 04/10/2025 09:09 AM CDT
== END 2025-04-10 08:56 | disposition home or self-care (01) ==
PROVIDERS: PCP Family Medicine; Visit Provider Family Medicine
DX: R30.0 Dysuria (principal)
CPT/HCPCS: 87086

== ENCOUNTER 2025-05-17 08:25 | Outpatient (CLI) | payer MEDICARE, SELFPAY ==
--- OUTSIDE RECORDS SUMMARY | 2024-04-14 09:20 | XMS_ITS ---
Author Organization [facility] Address [address] [place], [place] [id number] Care Team Providers Care Screw Machine Hand Name Role Phone ANDREWS ZEUS Unavailable [phone] REASON FOR VISIT *General care Encounters Encounter Location Date Provider Diagnosis [facility] [address], [place] [id number] 04/14/2024 ZEUS SPARROW Plan Of Treatment No Information Progress Notes * DONALD CaroJuliaOB: 0 (75 yo F)Acc No.[id number]:04/14/2024 Progress Notes Patient: Beatriz DENNIS Provider: De SPARROW :1950 A ge:74 Y S ex:Female Date:04/14/2024 Address:[address] [facility] Subjective: * Chief Complaints: * 1 . *General care. * Medical History: Objective: * Vitals: Assessment: Plan: * Treatment: * Billing Information: * Visit Code: * Procedure Codes: * Electronic signature of ERIK SPARROW DPM on 05/17/2025 at 08:47 AM CDT Sign off status: Pending * Provider: De SPARROW Date: 04/14/2024 Generated for Nader herring/Tory/Rufino on: 05/17/2025 08:47 AM CDT
[2025-05-17 08:42] LABS: Hematocrit 40.6 % (35.0-42.0); Hemoglobin 13.3 g/dL (11.7-13.8); Immature Granulocyte Percent A 0.2 % (0.0-0.0); Lymphocytes Absolute Auto 2.77 K/mm3 (1.10-4.50); Mean Corpuscular HGB Conc 32.8 g/dL (32-36); Mean Corpuscular Hemoglobin 31.2 pg (27.0-31.0); Mean Corpuscular Volume 95.3 fL (78.0-102.0); Nucleated Red Blood Cells Absolute Auto 0.00 K/mm3 (0.00-0.00); Nucleated Red Blood Cells Perc 0.0 % (0-0.0); Platelet Count Result 420 K/mm3 (150-420); Red Blood Count 4.26 M/mm3 (4.20-5.40); White Blood Count 5.8 K/mm3 (4.8-10.8)
--- OUTSIDE RECORDS SUMMARY | 2025-05-17 08:47 | XMS_ITS | Patient Health Record ---
Author Organization [facility] Address [address] [facility] [address] [place], [place] [id number] Reason For Referral No Information Plan Of Treatment No Information
--- OUTSIDE RECORDS SUMMARY | 2025-05-17 08:47 | XMS_ITS | Clinical Summary ---
Author Organization [facility] [address] [place] [address] [place] [address] Care Team Providers Care Receiving Lead Name Role Phone Meek Blanton MD Primary Care Provider [phone] Allergies Active Allergy Reactions Criticality Noted Date [...] (11/25/2021): Added automatically from request for surgery [id number] Surgical History Surgery Date Site/Laterality Comments HYSTERECTOMY [...] on file Legal Sex Female 8:26 AM DIRECTOR MISSION Gender Identity Female 11/30/2021 6:57 PM CDT [...] 68 kg (150 lb) 11/22/2021 2:28 PM DIRECTOR MISSION Height 163.8 cm (5' 4.5) 11/22/2021 2:28 PM DIRECTOR MISSION Body Mass Index 25.35 11/22/2021 2:28 PM DIRECTOR MISSION Plan of Treatment Health Maintenance Due Date Last Done Comments Colon Cancer Screening-Colonoscopy 1950 Depression Screening 1950 Fall Risk Assessment 1950 Hepatitis C Screening 1950 Osteoporosis Screening-Bone Density Scan 1950 DTaP/Tdap/Td Vaccine (1 - Tdap) 1961 Hepatitis B Screening 1968 Zoster Vaccine (1 of 2) 2000 Well Visit 65+ 2015 Pneumococcal vaccine 65+ (2 of 2 - PCV20 or PCV21) 08/19/2018 08/19/2017 Covid-19 Vaccine (2023-2 5 season) 2024 09/12/2021, 11/06/2020, 10/16/2020 Influenza Vaccine (#1) 2025 2, 08/19/2017, 06/19/2016, Additional history exists Insurance HEALTH ALLIANCE MEDICARE HEALTH ALLIANCE MEDICARE HMO/PPO HEALTH ALLIANCE EXCHANGE [facility] MEDICARE HMO/PPO Care Teams Receiving Lead Relationship Specialty Start Date End Date Meek Blanton MD [address] [place] [address] PCP - General Family Medicine 06/05/17
--- OUTSIDE RECORDS SUMMARY | 2025-05-17 08:47 | XMS_ITS | Clinical Summary ---
Author Organization [facility] Address [address] [place] [address] Phone Care Team Providers Care Wood Coater Name Role Phone Meek Blanton MD Primary Care Provider [phone] Allergies Active Allergy Reactions Criticality Noted Date [...] on file Legal Sex Female 10:14 PM WEB PUBLISHER Gender Identity Not on file Sexual Orientation [...] (5 0+ years) (2 of 2 - PCV20 or PCV21) 08/19/2018 08/19/2017 Colonoscopy 03/09/2024 03/09/2019 Colorectal Cancer Screening 03/09/2024 Respiratory Syncytial Virus (RSV) Immunization (Adult) (1 - 1-dose 75+ series) 2025 Influenza Immunization (#1) 2025 12/0 02/2017, 06/19/2016 SARS-COV-2 Immunization ( season) 2025 09/12/2021, 11/06/2020, 10/16/2020 Pneumococcal Immunization Combined Discontinued 08/19/2017 Hepatitis B [...] this topic Insurance MEDICARE C HEALTH ALLIANCE Member Subscriber Plan / Payer (Ef fective 2015-Present) Name:Beatriz Morgan Relation to Subscriber:Self Name:Beatriz Morgan Payer ID:[id number] (NAIC) Type:HMO Address: [place] [id number] Care Teams Wood Coater Relationship Specialty Start Date End Date Meek Blanton MD [address] [place] [address] PCP - General Family Medicine 02/08/19
--- OUTSIDE RECORDS SUMMARY | 2025-05-17 08:47 | XMS_ITS | Clinical Summary ---
Author Organization [facility] [facility] Address [address] [place] [address] Care Team Providers Care Actuarial Associate Name Role Phone Meek Blanton MD Primary Care Provider [phone] Source Comments [facility] [employer],non-owned Affiliates and Associated Physician Practices is amultiple site organization consisting of ambulatory clinics and hospital sitesin [place], [place], [place] and [place]. This disclosure is being madepursuant to the Care Everywhere program and may not contain all information available regarding this patient. Last updated 18.[facility] [facility] Allergies Active Allergy Reactions Criticality Noted Date [...] Comments Blood Pressure 128/84 10/17/2019 1:48 PM PROCUREMENT MANAGER Pulse 88 03/18/2018 3:40 PM CDT Temperature 36.4 C (97.6 F) 03/18/2018 3:40 PM CDT Respiratory Rate 22 03/18/2018 3:40 PM CDT Oxygen Saturation 98% 03/18/2018 3:40 PM CDT Inhaled Oxygen Concentration - - Weight 102.3 kg (225 lb 9.6 oz) 10/17/2019 1:48 PM PROCUREMENT MANAGER Height 162.6 cm (5' 4) 10/17/2019 1:48 PM PROCUREMENT MANAGER Body Mass Index 38.72 10/17/2019 1:48 PM PROCUREMENT MANAGER Plan of Treatment Health Maintenance Due Date [...] 03/18/2018 5:12 PM CDT ADA Comment: The [place] Diabetes Association recommends a fasting glucose concentration of 99 mg/dL as the upper limit of normal. ADA Comment: The [place] Diabetes Association recommends a fasting glucose concentration [...] MD LAB - CHEMISTRY ORDERABLES Final Result [facility] [address] [place] [address], [facility] [phone] from Last 3 Months or Most Recently Relevant to Health Maintenance Insurance [employer] Care Teams Actuarial Associate Relationship Specialty Start Date End Date Meek Blanton MD [address] [place] [address] PCP - General 08/08/19
--- OUTSIDE RECORDS SUMMARY | 2025-05-17 08:47 | XMS_ITS | Patient Health Record ---
Author Organization [facility] As Element ID Address [address] [facility] [address] [place] [address] Care Team Providers Care Curb Attendant Name Role Phone Pio Mike DO Primary Care Provider Unavail able Rosanne Simons Unavailable [phone] Allergies No Known Allergies Reason For Referral No Information Medications Medication SIG (Take, Route, Frequency, Duration) Notes Start Date End Date Status Fluticasone Propionate Diskus 50 MCG/ACT Aerosol Powder Breath Activated Inhalation *Reorder from [employer] for eRx and Interaction Alerts* 12/29/2023 Unknown Timolol Maleate 0.25 % Solution Ophthalmic 12/29/2023 Unknown traZODone HCl 100 MG Tablet 1-2 tablet at bedtime Orally Once a day; Duration: 90 days As needed for insomnia Active ALPRAZolam 0.25 MG Tablet 1 tablet Oral Twice a day; Duration: 30 days as needed for anxiety 03/28/2025 Active DULoxetine HCl 60 MG Capsule Delayed Release Particles 1 capsule Oral twice a day; Duration: 90 days Active Candesartan Cilexetil 32 MG Tablet Oral 12/29/2023 Unknown Atorvastatin Calcium 40 MG Tablet Oral 12/29/2023 Unknown Latanoprost 0.005 % Solution Ophthalmic 12/29/2023 Unknown Zepbound 2.5 MG/0.5ML Solution Auto-injector 0.5 mL Subcutaneous Active traZODone HCl 50 MG Tablet 1-2 tablet at bedtime Oral Once a day; Duration: 90 days Active Social History Tobacco Use: Social History Observation Description Date Details (start date - stop date) Never Smoker NA - NA Sex Assigned At : Social History Observation Description Sex Assigned At Female Social History Miscellaneous: Social Info Question Answer Notes Advance Care Planning Advance Directive Refused to discuss advance care planning Tobacco Use: Social Info Question Answer Notes Tobacco Control (Standard) Tobacco use: Nonsmoker Additional Details Category Social Info Options Details Migrated Social History Migrated Social History Alcohol Intake: None 12/29/2023,Tobacco Years: Never smoker 12/29/2023 Problems Problem Type SNOMED Code ICD Code Onset Dates Problem Status W/U Status Risk Notes Problem Mild recurrent major depression (05547112) Major depressive disorder, recurrent, mild (F33.0) Active confirmed Problem Generalized anxiety disorder (38542570) Generalized anxiety disorder (F41.1) Active confirmed Problem Insomnia disorder related to another mental disorder (70225323) Insomnia due to other mental disorder (F51.05) Active confirmed Encounters Encounter Location Date Provider Diagnosis [facility] [address] [place] [address] [address] 08/03/2024 Rosanne Simons Major depressive disorder, recurrent, mild F33.0 ; Generalized anxiety disorder F41.1 and Insomnia due to other mental disorder F51.05 [facility] [address] [address] 12/01/2024 Rosanne Simons Encounter for screening for depression Z13.31 ; Major depressive disorder, recurrent, mild F33.0 ; Generalized anxiety disorder F41.1 and Insomnia due to other mental disorder F51.05 [facility] [place] [address] [facility] [address] [address] 03/28/2025 Rosanne Simons Encounter for screening for depression Z13.31 ; Major depressive disorder, recurrent, mild F33.0 ; Generalized anxiety disorder F41.1 and Insomnia due to other mental disorder F51.05 [employer] [place] [address] [facility] [address] [address] 08/01/2024 Rosanne Simons Major depressive disorder, recurrent, [...] children and young adults, and serotonin syndrome. 03/28/2025 Major depressive disorder, recurrent, mild (ICD-10 [...] 03/28/2025 Generalized anxiety disorder (ICD-10 - F41.1) 12/01/2024 Generalized anxiety disorder (ICD-10 - F41.1) 12/01/2024 Insomnia due to other mental disorder (ICD-10 - F51.05) 03/28/2025 Insomnia due to other mental disorder [...] Provider Name:Rosanne El montgomery, 08/03/2025 02:00:00 PM, [address], [address], [place], [address], Insurance Providers Payer Name Payer Address Payer Phone Subscriber Number Group Number Insured Name Patient Relationship to Insured Coverage Start Date Coverage End Date Aetna Medicare Replacemen t/Advantag e - Ppo [address] [place] [address] [id number] NOHELIA BENNETT Self - patient is the insured Medical (General) History Surgical History Surgery Date(Month/Year) Tonsilectomy/adenoids 09/14/1960 Hysterectomy ([id number]) 09/14/1986 Any surgical history 09/14/2014 Bariatric operative procedure ([id number] ) 09/14/2019
[2025-05-17 08:58] LABS: Hemoglobin A1C 5.0 % (<5.7)
[2025-05-17 09:08] LABS: Iron 98 ug/dL (37-170)
[2025-05-17 09:10] LABS: Alanine Aminotransferase 20 U/L (6-35); Albumin Level 4.3 g/dL (3.5-5.1); Alkaline Phosphatase 131 U/L (38-126); Anion Gap 11 mmol/L (4-12); Aspartate Amino Transferase 26 U/L (14-36); Bilirubin,Total 0.7 mg/dL (0.2-1.3); Blood Urea Nitrogen 12 mg/dL (7-17); Calcium 10.1 mg/dL (8.4-10.2); Carbon Dioxide 25 mmol/L (22-30); Chloride 105 mmol/L (98-107); Cholesterol 166 mg/dL (0-200); Estimated Glomerular Filt Rate > 60; Glucose 91 mg/dL (65-110); HDL Direct 80 mg/dL; Magnesium 1.9 mg/dL (1.6-2.3); Osmolality Calculated 291 mOsm/kg (285-295); Potassium 5.3 mmol/L (3.4-5.0); Sodium 141 mmol/L (137-145); Total Protein 6.7 g/dL (6.3-8.2); Triglycerides 108 mg/dL (<150)
[2025-05-17 09:17] LABS: Percent Iron Saturation 31 % (20-50)
[2025-05-17 10:14] LABS: Vitamin B12 467.0 pg/mL (239-931)
== END 2025-05-17 08:26 | disposition home or self-care (01) ==
LOC: CHSLAB 08:28
PROVIDERS: PCP Family Medicine
DX: K21.9 Gastro-esophageal reflux disease without esophagitis (principal); E78.5 Hyperlipidemia, unspecified; I10 Essential (primary) hypertension; K90.9 Intestinal malabsorption, unspecified; E61.1 Iron deficiency; R79.89 Other specified abnormal findings of blood chemistry; E66.3 Overweight; R73.03 Prediabetes; Z98.84 Bariatric surgery status; E55.9 Vitamin D deficiency, unspecified
CPT/HCPCS: 36415; 80053; 80061; 82306; 82607; 82746; 83036; 83540; 83550; 83735; 85025

== ENCOUNTER 2025-09-06 13:38 | Emergency (ER) | payer MEDICARE, SELFPAY ==
[2025-09-06] VITALS (45 sets, daily range): BP systolic 141–248; BP diastolic 23–144; PULSE 55–62; RESP 19–20; TEMP 36.1; O2SAT 96–100
--- NOTE | ~2025-09-06 | CT_ITS ---
EXAMINATION: CT brain wo con DATE: 09/06/2025 14:46 INDICATION: Headache TECHNIQUE: Computed tomography (CT) of the head was performed without intravenous contrast. Sagittal and coronal reconstructions were performed. The mA was adjusted according to patient size. Iterative reconstruction technique was employed. The dose-length product was 605.33 mGy-cm. COMPARISON: head CT dated 07/28/2017 FINDINGS: No acute intracranial hemorrhage, acute infarction or abnormal extra axial fluid collection. There is mild scattered white matter hypoattenuation consistent with chronic small vessel ischemic disease. Symmetric prominence of the sulci consistent with mild age-appropriate diffuse cerebral volume loss. Ventricles are normal and symmetric with unchanged bilateral peripherally calcified choroid plexus cysts in the left and right lateral ventricles. No mass/mass effect. Changes of bilateral intraocular lens replacement. The orbits and mastoid air cells are normal. Mild mucosal thickening in the right maxillary sinus. IMPRESSION: 1. No acute intracranial process. 2. Age-related changes including mild diffuse volume loss and mild scattered white matter hypoattenuation consistent with chronic small vessel ischemic disease. Reviewed, dictated and finalized at location A. [facility] IMPRESSION: 1. No acute intracranial process. 2. Age-related changes including mild diffuse volume loss and mild scattered wh ite matter hypoattenuation consistent with chronic small vessel ischemic diseas e.
--- OUTSIDE RECORDS SUMMARY | 2025-09-06 13:40 | XMS_ITS | Clinical Summary ---
Author Organization [facility] Address [address] [place] [address] Care Team Providers Care Hydraulic Plumber Helper Name Role Phone RashidPio Primary Care Provider [phone] Allergies Active Allergy Reactions Criticality Noted Date [...] on file Legal Sex Female 3:17 PM BARROW WORKER Gender Identity Not on file Sexual Orientation [...] Dexa Scan (General) 2015 Pneumococcal Vaccine: 50+ Years (2 of 2 - PCV20 or PCV21) 08/19/2018 08/19/2017 RSV Immunization or 60+ Years (1 - 1-dose 75+ series) 2025 COVID-19 Vaccine ( - 2024-2 6 season) 2025 Influenza Adult (#1) 2025 08/19/2017, 06/19/2016 Hepatitis A Vaccines Aged Out No long er eligible based on patient's age to complete this topic Meningococcal B Vaccine Aged Out No l onger eligible based on patient's age to complete this topic Meningococcal Vaccine Aged Out No freddie markus eligible based on patient's age to complete this topic RSV Immunizations Under 20 Months Aged Out No longer eligible b ased on patient's age to complete this topic Insurance [facility] ALLIANCE [employer] ALLIANCE MEDICARE Care Teams Hydraulic Plumber Helper Relationship Specialty Start Date End Date Pio Mike DO [address] [place] [address] PCP - General FAMILY PRACTICE 03/28/20
--- OUTSIDE RECORDS SUMMARY | 2025-09-06 13:40 | XMS_ITS | Clinical Summary ---
Author Organization [facility] [address] [place] [address] [place] [address] Care Team Providers Care Byproducts Operator Name Role Phone Meek Blanton MD Primary Care Provider [phone] Allergies Active Allergy Reactions Criticality Noted Date [...] (11/25/2021): Added automatically from request for surgery [id number] Surgical History Surgery Date Site/Laterality Comments HYSTERECTOMY [...] on file Legal Sex Female 8:26 AM DESIGN ANALYST Gender Identity Female 11/30/2021 6:57 PM CDT Sexual Orientation Not on file Last Filed Vital Signs Vital Sign Reading Time Taken Comments Blood Pressure 141/76 07/11/2019 12:19 PM CDT Pulse 76 07/11/2019 12:19 PM CDT Temperature - - Respiratory Rate 14 07/11/2019 12:19 PM CDT Oxygen Saturation - - Inhaled Oxygen Concentration - - Weight 68 kg (150 lb) 11/22/2021 2:28 PM DESIGN ANALYST Height 163.8 cm (5' 4.5) 11/22/2021 2:28 PM DESIGN ANALYST Body Mass Index 25.35 11/22/2021 2:28 PM DESIGN ANALYST Plan of Treatment Not on file Insurance [facility] MEDICARE [facility] MEDICARE HMO/PPO [facility] [employer] ALLIANCE MEDICARE HMO/PPO Care Teams Byproducts Operator Relationship Specialty Start Date End Date Meek Blanton MD PCP - General Family Medicine 06/05/17
--- OUTSIDE RECORDS SUMMARY | 2025-09-06 13:40 | XMS_ITS | Clinical Summary ---
Author Organization [facility] Address [address] [place] [address] Phone Care Team Providers Care Assistant Center Manager Name Role Phone Meek Blanton MD Primary Care Provider [phone] Allergies Active Allergy Reactions Criticality Noted Date [...] on file Legal Sex Female 10:14 PM OPERATIONS SUPPORT ANALYST Gender Identity Not on file Sexual Orientation [...] 1995 Zoster Immunization (1 of 2) 2000 Medicare Initial AWV [id number] 09/14/2016 Pneumococcal Immunization (5 0+ years) (2 of 2 - PCV20 or PCV21) 08/19/2018 08/19/2017 Colonoscopy 03/09/2024 03/09/2019 Colorectal Cancer Screening 03/09/2024 Respiratory Syncytial Virus (RSV) Immunization (Adult) (1 - 1-dose 75+ series) 2025 Influenza Immunization (#1) 05/15/202502/2017, 06/19/2016 SARS-COV-2 Immunization (2024- season) 2025 09/12/2021, 11/06/2020, 10/16/2020 Pneumococcal Immunization Combined Discontinued 08/19/2017 Hepatitis B Immunization Aged Out No longer eligible based on patient's age to complete this topic Human Papillomavirus (HPV) Immunization (No Doses Required) Completed Meningococcal Immunization (ACWY) Aged Out No longer eligible based on patient's age to complete this topic Rotavirus Immunization Aged Out No lo nger eligible based on patient's age to complete this topic Insurance MEDICARE C HE[employer] ALLIANCE Member Subscriber Plan / Payer (Ef fective 2015-Present) Name:Beatriz Morgan Relation to Subscriber:Self Name:Beatriz Morgan Payer ID:[id number] (NAIC) Type:HMO Address: [place] [id number] Care Teams Assistant Center Manager Relationship Specialty Start Date End Date Meek Blanton MD [address] [place] [address] PCP - General Family Medicine 02/08/19
--- OUTSIDE RECORDS SUMMARY | 2025-09-06 13:40 | XMS_ITS | Patient Health Record ---
Author Organization [facility] As [facility]o Address [address] [facility] [address] [place] [address] Care Team Providers Care Jewelry Cutter Name Role Phone Pio Mike DO Primary Care Provider Unavail able Rosanne Simons Unavailable [phone] Elizabeth Sanders Unavailable [phone] Allergies No Known Allergies Reason For Referral No Information Medications Medication SIG (Take, Route, Frequency, Duration) Notes Start Date End Date Status Latanoprost 0.005 % Solution Ophthalmic 12/29/2023 Unknown Candesartan Cilexetil 32 MG Tablet Oral 12/29/2023 Unknown Timolol Maleate 0.25 % Solution Ophthalmic 12/29/2023 Unknown traZODone HCl 50 MG Tablet 1-2 tablet at bedtime Oral Once a day; Duration: 90 days As needed 08/03/2025 Active Fluticasone Propionate Diskus 50 MCG/ACT Aerosol Powder Breath Activated Inhalation *Reorder from [employer] for eRx and Interaction Alerts* 12/29/2023 Unknown DULoxetine HCl 60 MG Capsule Delayed Release Particles 1 capsule Oral twice a day; Duration: 90 days 08/03/2025 Active ALPRAZolam 0.25 MG Tablet 1 tablet Oral 3 times a day; Duration: 30 days as needed for anxiety note dose increase 08/03/2025 Active traZODone HCl 50 MG Tablet 1-2 tablet at bedtime Oral Once a day; Duration: 90 days Active Zepbound 2.5 MG/0.5ML Solution Auto-injector 0.5 mL Subcutaneous Active Social History Tobacco Use: Social History [...] Risk Notes Problem Mild recurrent major depression (39364929) Major depressive disorder, recurrent, mild (F33.0) Active confirmed Problem Generalized anxiety disorder (27965824) Generalized anxiety disorder (F41.1) Active confirmed Problem Insomnia disorder related to another mental disorder (19868481) Insomnia due to other mental disorder (F51.05) Active confirmed Encounters Encounter Location Date Provider Diagnosis [facility] [place] [address] [address] 12/01/2024 Rosanne Simons Encounter for screening for depression Z13.31 ; Major depressive disorder, recurrent, mild F33.0 ; Generalized anxiety disorder F41.1 and Insomnia due to other mental disorder F51.05 [facility] [address] 03/28/2025 Rosannelinden Simons Encounter for screening for depression Z13.31 ; Major depressive disorder, recurrent, mild F33.0 ; Generalized anxiety disorder F41.1 and Insomnia due to other mental disorder F51.05 [facility] [address] 08/03/2025 Rosanne Simons Major depressive disorder, recurrent, mild F33.0 ; Generalized anxiety disorder F41.1 and Insomnia due to other mental disorder F51.05 [facility] [address] 08/23/2025 Rosanne Simons Generalized anxiety disorder F41.1 [facility] [address] 08/01/2025 Rosanne Simons [facility] [address] 08/03/2025 Rosanne Simons Assessments Encounter Date Diagnosis (ICD Code) Assessment Notes Treatment Notes Treatment Clinical Notes Section Notes 12/01/2024 Encounter for screening for depression (ICD-10 - Z13.31) 03/28/2025 Encounter for screening for depression (ICD-10 - Z13.31) 08/03/2025 Major depressive disorder, recurrent, mild (ICD-10 - F33.0) SSRI/SNRI side effects discussed including but not limited to, gastric upset, nausea, vomiting, diarrhea and/or constipation, weight changes, sexual side effects including loss of libido, increased suicidal thoughts/behaviors in children and young adults, and serotonin syndrome. 08/03/2025 Generalized anxiety disorder (ICD-10 - F41.1) Discussed and educated pt regarding benzodiazepines are generally not intended for prolonged use and that use can cause tolerance, dependence, depression, and associated memory issues including dementias (this list is not exhaustive). Benzodiazepine use is generally not recommended concurrently with pain medications and/or other controlled substances due to increased risks of profound sedation, respiratory depression, coma, and even . They are not to be used with any alcohol, as this combination can be lethal. 03/28/2025 Major depressive disorder, recurrent, mild (ICD-10 - F33.0) SSRI/SNRI side effects discussed including but not limited to, gastric upset, nausea, vomiting, diarrhea and/or constipation, weight changes, sexual side effects including loss of libido, increased suicidal thoughts/behaviors in children and young adults, and serotonin syndrome. 12/01/2024 Major depressive disorder, recurrent, mild (ICD-10 - F33.0) SSRI/SNRI side effects discussed including but not limited to, gastric upset, nausea, vomiting, diarrhea and/or constipation, weight changes, sexual side effects including loss of libido, increased suicidal thoughts/behaviors in children and young adults, and serotonin syndrome. 08/23/2025 Generalized anxiety disorder (ICD-10 - F41.1) Electronic Prior Authorization was requested for ALPRAZolam 0.25 MG Tablet. Provider can order medication once approval received. 12/01/2024 Generalized anxiety disorder (ICD-10 - F41.1) 03/28/2025 Generalized anxiety disorder (ICD-10 - F41.1) 08/03/2025 Insomnia due to other mental disorder (ICD-10 [...] Plan Of Treatment Next Appt Details Provider Name:Geena Mcrae purnima, 09/20/2025 02:15:00 PM, [address], [facility] [address], [place], [address], Insurance Providers Payer Name Payer Address Payer Phone Subscriber Number Group Number Insured Name Patient Relationship to Insured Coverage Start Date Coverage End Date Aetna Medicare Replacemen t/Advantag e - Ppo [address] [place] [address] [id number] NOHELIA BENNETT Self - patient is the insured Medical (General) History Surgical History Surgery Date(Month/Year) Tonsilectomy/adenoids 09/14/1960 Hysterectomy ([id number]) 09/14/1986 Any surgical history 09/14/2014 Bariatric operative procedure ([id number] ) 09/14/2019
--- OUTSIDE RECORDS SUMMARY | 2025-09-06 13:40 | XMS_ITS | Clinical Summary ---
Author Organization [facility] Address [address] [place] [address] Care Team Providers Care Plate Gauger Name Role Phone Meek Blanton MD Primary Care Provider [phone] Source Comments [facility],non-owned Affiliates and Associated Physician Practices is amultiple site organization consisting of ambulatory clinics and hospital sitesin [place], [place], [place] and [place]. This disclosure is being madepursuant to the Care Everywhere program and may not contain all information available regarding this patient. Last updated 18.[facility] Allergies Active Allergy Reactions Criticality Noted Date [...] Comments Blood Pressure 128/84 10/17/2019 1:48 PM OFFICE MOVER Pulse 88 03/18/2018 3:40 PM CDT Temperature 36.4 C (97.6 F) 03/18/2018 3:40 PM CDT Respiratory Rate 22 03/18/2018 3:40 PM CDT Oxygen Saturation 98% 03/18/2018 3:40 PM CDT Inhaled Oxygen Concentration - - Weight 102.3 kg (225 lb 9.6 oz) 10/17/2019 1:48 PM OFFICE MOVER Height 162.6 cm (5' 4) 10/17/2019 1:48 PM OFFICE MOVER Body Mass Index 38.72 10/17/2019 1:48 PM OFFICE MOVER Plan of Treatment Health Maintenance Due Date [...] 2) 2000 SCREENING FOR DIABETES 03/18/2021 03/18/2018 DEPRESSION SCREENING 09/14/2024 Respiratory Syncytial Virus (RSV) Vaccine Pt: or over 60 yrs (1 - 1-dose 75+ series) 2025 COVID-19 VACCINE (1 - 2024-2 6 season) 2025 INFLUENZA VACCINE (#1) 2025 7, 06/19/2016 [...] 03/18/2018 5:12 PM CDT ADA Comment: The [place] [employer] recommends a fasting glucose concentration of 99 mg/dL as the upper limit of normal. ADA Comment: The [place] [employer] recommends a fasting glucose concentration [...] MD LAB - CHEMISTRY ORDERABLES Final Result [facility] [address] [place] [address], [facility] [phone] from Last 3 Months or Most Recently Relevant to Health Maintenance Insurance [employer] Care Teams Plate Gauger Relationship Specialty Start Date End Date Meek Blanton MD [address] [place] [address] PCP - General 08/08/19
--- OUTSIDE RECORDS SUMMARY | 2025-09-06 13:40 | XMS_ITS | Patient Health Record ---
Author Organization [facility] Address [address] [place] [address] Care Team Providers Care Bargain Table Clerk Name Role Phone Mervat RICHMOND, Ten Unavailable Unavailable Reason For Referral No Information Problems Problem Type SNOMED Code ICD Code Onset Dates Problem Status W/U Status Risk Notes Problem Vomiting without nausea (802487534889 108) NON-INTRACTABLE VOMITING WITHOUT NAUSEA, UNSPECIFIED VOMITING TYPE (R11.11) Inactive confirmed Plan Of Treatment No Information Insurance Providers Payer Name Payer Address Payer Phone Subscriber Number Group Number Insured Name Patient Relationship to Insured Coverage Start Date Coverage End Date HEALTH ALLIANCE [address] [place] [address] [id number] NOHELIA BENNETT Self - patient is the insured
--- NOTE | 2025-09-06 13:55 | ED_ITS ---
HPI - Headache General Chief Complaint: Headache Stated Complaint: bp check headache Time Seen by Provider: 09/06/25 13:54 Source: patient Mode of arrival: ambulatory Limitations: no limitations History of Present Illness HPI Narrative: Patient is a 75-year-old female with right head pain that started today. The pain is in the right temporal and right maxilla mostly at this time. It does hurt into the scalp on the right and she has a headache on the right. No fever or chills. No nausea vomiting or diarrhea. Elevated blood pressure noted on entry. MD elicited complaint: headache Pertinent past history: hypertension Onset (ago): day(s) (One) Onset description: gradually and while at rest Location: right, frontal, temporal, facial and maxillary Severity: moderate Pain scale (0-10): 5 Quality & Timing: sharp, constant and pain radiation Exacerbating factors: none Relieving factors: nothing Context: other (Patient has high blood pressure and headache and right temporal and facial pain over the past day) Associated symptoms: eye pain (Right side with decreased vision over time but the right side is worse than the left side according to the patient) Treatments prior to arrival: none Related Data Home Medications ?Medication ?Instructions ?Recorded ?Confirmed ?Last Taken ?Type duloxetine 60 mg capsule,delayed 120 mg PO DAILY 10/2507/06/25 Unknown History release (Cymbalta) multivitamin 1 tablet PO TID 06/18/20 Unknown History alprazolam 0.25 mg tablet 0.25 mg PO TID 09/06/25 Unk nown History trazodone 100 mg tablet 100 mg PO HS PRN insomnia 09/06/25 Unknown History Allergies Allergy/AdvReac Type Severity Reaction Status Date / Time morphine Allergy Intermediate Agitated Verified 09/06/25 13:54 Sulfa (Sulfonamide Allergy Unknown Unknown Verified 09/06/25 13:54 Antibiotics) Review of Systems 2 Review of Systems: All systems reviewed & are unremarkable except as noted in HPI and below Constitutional: Constitutional: Reports no additional constitutional complaints Eyes: Eyes: Reports no additional eye complaints ENT: Reports system reviewed and no additional complaints, except as documented Cardiovascular: Cardiovascular: Reports no additional cardiovascular complaints Respiratory: Respiratory: Reports no additional respiratory complaints Gastrointestinal: Gastrointestinal: Reports no additional gastrointestinal complaints Genitourinary: Genitourinary: Reports no additional female genitourinary complaints Musculoskeletal: Musculoskeletal: Reports no additional musculoskeletal complaints Integumentary/Breasts: Skin/Breast: Reports system reviewed and no additional complaints, except as docu Neurologic: Reports system reviewed and no additional complaints, except as documented Psychiatric: Psychiatric: Reports no additional psychiatric complaints Endocrine: Endocrine: Reports no additional endocrine complaints Hematologic/Lymphatic: Hematologic/Lymphatic: Reports no additional hematologic/lymphatic complaints Allergic/Immunologic: Allergic/Immunologic: Reports no additional allergic/immunologic complaints PMFSH Past Medical History Medical History Prediabetes Iron deficiency anemia Low vitamin D level History of peptic ulcer Osteoporosis Hyperlipidemia Hypertension GERD (gastroesophageal reflux disease) Depression Overweight Surgical History Surgical History H/O gastric bypass History of knee replacement Left Knee December 2013 History of hysterectomy 1987 Family History Family History Mother Family history of hypercholesterolemia Hypertension Family history of cardiovascular disease Sibling Family history of blood dyscrasia Social History Social History Smoking status: Never smoker Alcohol intake: never Exam 2 Const: General: healthy appearing Nutritional Appearance: well nourished Orientation/consciousness: patient oriented x3 Limitations: no limitations HENMT: Head: normal to inspection Ears: external ears normal F nani/Nose/Sinus: Normal external nose present Eyes: Conjunctivae: conjunctivae normal Pupils: Equal, round and reactive pupils present EOM: EOMs intact bilaterally Neck: Neck: normal visual inspection Chest: Chest palpation & inspection: normal inspection of the chest Resp: Effort & Inspection: normal respiratory effort and not labored A uscultation: clear to auscultation bilaterally and no crackles Cardio: Rate: regular rate Rhythm: regular rhythm Heart sounds: no murmurs GI: Inspection: non-distended GI Palp: Yes Soft to palpation and No Tenderness to palpation present (GI) Auscultation: normal bowel sounds : General: Yes bladder normal to palpation Back/Spine/Pelvis: Back: no CVA tenderness Skin: General skin exam: normal color Rashes: no rashes Wounds: no wounds Other: Tender right temporal artery area to palpation Neuro: General: patient oriented x3, moves all extremities and no meningeal signs Cranial nerves: Yes Nystagmus not present Speech: normal speech G ait exam (Neuro): Normal gait present Extrem: General: normal to inspection, no clubbing, cyanosis or edema and no pedal edema Psych: Mental Status: mental status grossly normal Affect: normal affect Attitude: cooperative Course Vital Signs Vital signs: Vital Signs Temperature 36.1 C L 09/06/25 13:38 Pulse Rate 62 09/06/25 13:38 Respiratory Rate 19 09/06/25 13:38 Blood Pressure 242/108 H 09/06/25 13:38 Pulse Oximetry 99 09/06/25 13:38 Oxygen Delivery Room Air 09/06/25 13:38 Temperature 36.1 C L 09/06/25 13:38 Pulse Rate 57 L 09/06/25 18:32 Respiratory Rate 20 09/06/25 18:32 Blood Pressure 182/92 H 09/06/25 18:32 Pulse Oximetry 99 09/06/25 18:32 Oxygen Delivery Room Air 09/06/25 18:32 [facility] Narrative Medical decision making narrative: Patient is a 75-year-old female with right-sided face and head pain over the past day. Workup for suggested differential diagnosis list. Work on blood pressure control. After review of studies the final diagnosis appears to be trigeminal neuralgia. We will do Tegretol. I gave patient the Tegretol and resolved most of her pain. The initial [place] did not do that much for the pain. Blood pressure was better controlled at time of discharge. She gets a high blood pressure in response to pain. Differential Diagnosis Differential Diagnosis: Trigeminal neuralgia, temporal arteritis, sinusitis, shingles, hypertensive urgency, brain bleed Lab Data [facility] Lab Attestation statement: I personally reviewed the patient's lab results. 09/06/25 14:51 09/06/25 14:51 Labs: Lab Results 09/06/25 09/06/25 09/06/25 Range/Units 14:36 14:51 15:38 WBC 7.4 (4.8-10.8) K/mm3 RBC 4.03 L (4.20-5.40) M/mm3 Hgb 12.4 (11.7-13.8) g/dL Hct 37.7 (35.0-42.0) % MCV 93.5 (78.0-102.0) fL MCH 30.8 (27.0-31.0) pg MCHC 32.9 (32-36) g/dL RDW 12.3 (11.6-14.4) % Plt Count 376 (150-420) K/mm3 MPV 9.6 (9.2-11.8) fl Immature Gran % (Auto) 0.4 H (0.0-0.0) % Neut % (Auto) 46.2 L (50.0-70.0) % Lymph % (Auto) 39.9 (18.0-42.0) % [place] % (Auto) 9.0 (2.0-11.0) % Eos % (Auto) 3.8 (1.0-6.0) % Baso % (Auto) 0.7 (0.0-1.0) % Lymph # (Auto) 2.96 (1.10-4.50) K/mm3 [place] # (Auto) 0.67 (0.10-0.90) K/mm3 Eos # (Auto) 0.28 (0.02-0.50) K/mm3 Baso # (Auto) 0.05 (0.00-0.10) K/mm3 Abs Immat Gran (auto) 0.03 H (0.00-0.00) K/mm3 Absolute Neuts (auto) 3.43 (1.70-7.20) K/mm3 Absolute Nucleated RBC 0.00 (0.00-0.00) K/mm3 Nucleated RBC % 0.0 (0-0.0) % ESR 5 (0-20) mm/hr PT 10.2 (9.50-12.1) Seconds INR 0.9 APTT 26.4 (23.9-30.70) Sec Sodium 141 (137-145) mmol/L Potassium 4.1 (3.4-5.0) mmol/L Chloride 104 (98-107) mmol/L Carbon Dioxide 26 (22-30) mmol/L Anion Gap 11 (4-12) mmol/L BUN 20 H (7-17) mg/dL Creatinine 0.88 (0.7-1.0) mg/dL Estim Creat Clear Calc 42 ml/min Estimated GFR > 60 (59 - ) Glucose 93 (65-110) mg/dL Calculated Osmolality 294 (285-295) mOsm/kg Lactic Acid 0.8 (0.7-2.0) mmol/L Calcium 9.0 (8.4-10.2) mg/dL Total Bilirubin 0.3 (0.2-1.3) mg/dL AST 36 (14-36) U/L ALT 24 (6-35) U/L Alkaline Phosphatase 139 H (38-126) U/L Total Protein 7.1 (6.3-8.2) g/dL Albumin 4.6 (3.5-5.1) g/dL Urine Color Light yellow (Yellow) Urine Appearance Clear (Clear) Urine pH 5.5 (5.0-8.0) Ur Specific [place] 1.015 (1.010-1.020) Urine Protein Negative (Negative) Urine Glucose (UA) Negative (Negative) Urine Ketones Negative (Negative) Ur Blood (Man) Negative (Negative) Urine Nitrate Negative (Negative) Urine Bilirubin Negative (Negative) Urine Urobilinogen 0.2 (0.2-1.0) mg/dL Leukocyte Esterase Rfl Negative (Negative) ISABELLA/UL Influenza A (RT-PCR) Negative (Negative) Influenza B (RT-PCR) Negative (Negative) RSV (RT-PCR) Negative (Negative) SARS-CoV-2 RNA (RT-PCR) Negative (Negative) Imaging Data Attestation: I personally reviewed and interpreted this imaging study as follows: Radiologist's impression: ITS Impressions Head CT 09/06/25 14:53 IMPRESSION: 1. No acute intracranial process. 2. Age-related changes including mild diffuse volume loss and mild scattered white matter hypoattenuation consistent with chronic small vessel ischemic disease. Discharge Plan Discharge Clinical Impression: Trigeminal neuralgia Patient Disposition: Home Condition: Stable Instructions: Trigeminal Neuralgia (ED) Additional Instructions: Please follow-up with primary doctor in the next week. Use this medication until you talk to your primary doctor when you can stop using this medication. Patient Language: Mauritanian Prescriptions: New carbamazepine [Tegretol] 200 mg tablet 100 mg PO BID Qty: 30 0RF No Action alprazolam 0.25 mg tablet 0.25 mg PO TID trazodone 100 mg tablet 100 mg PO HS PRN (Reason: insomnia) multivitamin Tablet 1 tablet PO TID duloxetine [Cymbalta] 60 mg capsule,delayed release(DR/EC) 120 mg PO DAILY Follow-up/Referrals: Pio Mike DO [Primary Care Provider, [facility]] Time of Disposition: 18:22
--- NOTE | 2025-09-06 14:37 | PC.NURSE ---
covid swab sent to lab
[2025-09-06 14:56] LABS: Hematocrit 37.7 % (35.0-42.0); Hemoglobin 12.4 g/dL (11.7-13.8); Immature Granulocyte Percent A 0.4 % (0.0-0.0); Lymphocytes Absolute Auto 2.96 K/mm3 (1.10-4.50); Mean Corpuscular HGB Conc 32.9 g/dL (32-36); Mean Corpuscular Hemoglobin 30.8 pg (27.0-31.0); Mean Corpuscular Volume 93.5 fL (78.0-102.0); Nucleated Red Blood Cells Absolute Auto 0.00 K/mm3 (0.00-0.00); Nucleated Red Blood Cells Perc 0.0 % (0-0.0); Platelet Count Result 376 K/mm3 (150-420); Red Blood Count 4.03 M/mm3 (4.20-5.40); White Blood Count 7.4 K/mm3 (4.8-10.8)
[2025-09-06 15:07] LABS: Alanine Aminotransferase 24 U/L (6-35); Albumin Level 4.6 g/dL (3.5-5.1); Alkaline Phosphatase 139 U/L (38-126); Anion Gap 11 mmol/L (4-12); Aspartate Amino Transferase 36 U/L (14-36); Bilirubin,Total 0.3 mg/dL (0.2-1.3); Blood Urea Nitrogen 20 mg/dL (7-17); Calcium 9.0 mg/dL (8.4-10.2); Carbon Dioxide 26 mmol/L (22-30); Chloride 104 mmol/L (98-107); Estimated CRCL calculation 42 ml/min; Estimated Glomerular Filt Rate > 60; Glucose 93 mg/dL (65-110); Osmolality Calculated 294 mOsm/kg (285-295); Potassium 4.1 mmol/L (3.4-5.0); Sodium 141 mmol/L (137-145); Total Protein 7.1 g/dL (6.3-8.2)
[2025-09-06 15:09] LABS: INR 0.9; Partial Thromboplastin Time 26.4 Sec (23.9-30.70); Prothrombin Time 10.2 Seconds (9.50-12.1)
[2025-09-06 15:15] LABS: Influenza A QL RT-PCR Negative (Negative); Influenza B QL RT-PCR Negative (Negative); RSV RNA, RT-PCR Negative (Negative); SARS-CoV-2 RNA PCR Negative (Negative)
[2025-09-06 15:46] LABS: Add Urine Microscopic? NO; Appearance Urine Clear (Clear); Glucose Urine UA Negative (Negative); Leukocyte Esterase Ur Negative LEU/UL (Negative); Nitrate Urine Negative (Negative); Specific Grav Ur 1.015 (1.010-1.020)
[2025-09-06] MEDS: HYDROcodone/acetaminophen (*CRX) 5-325 MG TABLET 1 TAB PO (15:59)
--- NOTE | 2025-09-11 13:34 | PC.NURSE ---
blood preliminary no growth
== END 2025-09-06 18:47 | disposition home or self-care (01) ==
PROVIDERS: Emergency Provider Emergency Medicine; PCP Family Medicine
DX: G50.0 Trigeminal neuralgia (principal); E78.5 Hyperlipidemia, unspecified; I10 Essential (primary) hypertension; Z79.899 Other long term (current) drug therapy; Z20.822 Contact with and (suspected) exposure to COVID-19
CPT/HCPCS: 36415; 70450; 80053; 81003; 83605; 85025; 85610; 85652; 85730; 87637; 99284; A9270

== ENCOUNTER 2025-09-07 16:31 | Emergency (ER) | payer MEDICARE, SELFPAY ==
[2025-09-07] VITALS (30 sets, daily range): BP systolic 133–251; BP diastolic 67–115; PULSE 61; RESP 18; TEMP 36.2; O2SAT 95–100
--- NOTE | 2025-09-07 16:50 | ED.GENADULT ---
HPI - General Adult General Chief complaint: Unspecified Stated complaint: face pain Time Seen by Provider: 09/07/25 16:34 History of Present Illness HPI narrative: Beatriz is a 75F with a PMH of prediabetes, gastric bypass, anemia, low vitamin D, osteoporosis, HLD, HTN that presented to the ED with a headache. She had the simiar right sided headache around her eye yesterday. She was seen in this ED and was diagnosed with Trigeminal neuroalgia. She was treated with Tegretol and her pain and BP improved. A script was sent for Tegretol but she could not get it as all the pharmacies were closed for [place]. She woke up this morning with the same headache and still cannot get to the pharmacy so she came to the ED. She also has a lot of right eye blurriness. No falls or trauma. No hearing changes and no CP. CT showed no acute abnormality yesterday. She also reports continued urinary frequency. Related Data Home Medications ?Medication ?Instructions ?Recorded ?Confirmed ?Last Taken ?Type duloxetine 60 mg capsule,delayed 120 mg PO DAILY 10/25/19 07/06/25 Unknown History release (Cymbalta) multivitamin 1 tablet PO TID 06/18/20 07/06/25 Unknown History alprazolam 0.25 mg tablet 0.25 mg PO TID 09/06/25 Unknown History trazodone 100 mg tablet 100 mg PO HS PRN insomnia 09/06/25 09/06/25 Unknown History Allergies Allergy/AdvReac Type Severity Reaction Status Date / Time morphine Allergy Intermediate Agitated Verified 09/07/25 16:36 Sulfa (Sulfonamide Allergy Unknown Unknown Verified 09/07/25 16:36 Antibiotics) Review of Systems Review of Systems: All systems reviewed & are unremarkable except as noted in HPI and below PMFSH Past Medical History Medical History Prediabetes Iron deficiency anemia Low vitamin D level History of peptic ulcer Osteoporosis Hyperlipidemia Hypertension GERD (gastroesophageal reflux disease) Depression Overweight Surgical History Surgical History H/O gastric bypass History of knee replacement Left Knee December 2013 History of hysterectomy 1986 Family History Family History Mother Family history of hypercholesterolemia Hypertension Family history of cardiovascular disease Sibling Family history of blood dyscrasia Social History Social History Smoking status: Never smoker Alcohol intake: never Exam Const: General: healthy appearing Nutritional Appearance: well nourished Orientation/consciousness: patient oriented x3 Limitations: no limitations HENMT: Head: normal to inspection Ears: external ears normal Face/Nose/Sinus: Normal external nose present Other: Scalp is TTP on the right side Eyes: Conjunctivae: conjunctivae normal Pupils: Equal, round and reactive pupils present EOM: EOMs intact bilaterally Neck: Neck: normal visual inspection Chest: Chest palpation & inspection: normal inspection of the chest Resp: Effort & Inspection: normal respiratory effort and not labored Auscultation: clear to auscultation bilaterally and no crackles Cardio: Rate: regular rate Rhythm: regular rhythm Heart sounds: no murmurs GI: Inspection: non-distended GI Palp: Yes Soft to palpation and No Tenderness to palpation present (GI) Auscultation: normal bowel sounds : General: Yes bladder normal to palpation Back/Spine/Pelvis: Back: no CVA tenderness Skin: General skin exam: normal color Rashes: no rashes Wounds: no wounds Neuro: General: patient oriented x3, moves all extremities and no meningeal signs Cranial nerves: Yes Nystagmus not present Speech: normal speech Gait exam (Neuro): Normal gait present Extrem: General: normal to inspection, no clubbing, cyanosis or edema and no pedal edema Psych: Mental Status: mental status grossly normal Affect: normal affect Attitude: cooperative Course Course Emergency Course: After the Tegretol her pain came down to a 2-3. However her BP remained quite elevated. She was given clonidine for this. BP came down to the 160's systolic but pain returned so she was given additional Tegretol and gabapentin. Her pain resolved with these. However, given the vision changes, scalp tenderness, and age greater than 50 there is concenrn for Giant cell arteritis. Will start steroids. We will arrange for quick follow up in clinic and possible temoral artery biopsy. A message has been sent to PCP office to arrange for quick f/u visit and possible temporal artery bx Vital Signs Vital signs: Vital Signs Temperature 97.2 F L 09/07/25 16:32 Pulse Rate 61 09/07/25 16:32 Respiratory Rate 18 09/07/25 16:32 Blood Pressure 251/95 H 09/07/25 16:32 Pulse Oximetry 99 09/07/25 16:32 Oxygen Delivery Room Air 09/07/25 16:32 Temperature 97.2 F L 09/07/25 16:32 Pulse Rate 61 09/07/25 16:32 Respiratory Rate 18 09/07/25 16:32 Blood Pressure 138/96 H 09/07/25 19:31 Pulse Oximetry 96 09/07/25 19:31 Oxygen Delivery Room Air 09/07/25 16:32 MDM Differential Diagnosis Differential Diagnosis: Trigeminal neuralgia vs temporal arteritis vs atypical migraine vs hemorrhage vs other Lab Data Labs: Lab Results 09/07/25 Range/Units 17:22 Urine Color Light yellow (Yellow) Urine Appearance Clear (Clear) Urine pH 6.0 (5.0-8.0) Ur Specific [place] 1.010 (1.010-1.020) Urine Protein Negative (Negative) Urine Glucose (UA) Negative (Negative) Urine Ketones Negative (Negative) Ur Blood (Man) Negative (Negative) Urine Nitrate Negative (Negative) Urine Bilirubin Negative (Negative) Urine Urobilinogen 0.2 (0.2-1.0) mg/dL Leukocyte Esterase Rfl Negative (Negative) ISABELLA/UL Discharge Plan Discharge Clinical Impression: Idiopathic trigeminal neuralgia, Hypertensive urgency Patient Disposition: Home Condition: Stable Instructions: Trigeminal Neuralgia (ED) Patient Language: Turkish Prescriptions: New carbamazepine [Tegretol] 200 mg tablet 200 mg PO Q12H Qty: 30 0RF prednisone 20 mg tablet 60 mg PO DAILY 10 Days Qty: 30 0RF clonidine HCl 0.1 mg tablet 0.1 mg PO DAILY PRN (Reason: hypertensive emergency) Qty: 10 0RF No Action alprazolam 0.25 mg tablet 0.25 mg PO TID trazodone 100 mg tablet 100 mg PO HS PRN (Reason: insomnia) carbamazepine [Tegretol] 200 mg tablet 100 mg PO BID Qty: 30 0RF multivitamin Tablet 1 tablet PO TID duloxetine [Cymbalta] 60 mg capsule,delayed release(DR/EC) 120 mg PO DAILY Follow-up/Referrals: Pio Mike DO [Primary Care Provider, Family Practice]
--- OUTSIDE RECORDS SUMMARY | 2025-09-07 17:10 | XMS_ITS | Patient Health Record ---
Author Organization [facility] Address [address] [facility] [address] [place] [address] Care Team Providers Care Sponsorship Manager Name Role Phone Pio Mike DO Primary Care Provider Unavail able Rosanne Simons Unavailable [phone] Elizabeth Sanders Unavailable [phone] Allergies No Known Allergies Reason For Referral [...] Aerosol Powder Breath Activated Inhalation *Reorder from [employer] for eRx and Interaction Alerts* 12/29/2023 Unknown [...] Risk Notes Problem Mild recurrent major depression (95351193) Major depressive disorder, recurrent, mild (F33.0) Active confirmed Problem Generalized anxiety disorder (64945312) Generalized anxiety disorder (F41.1) Active confirmed Problem Insomnia disorder related to another mental disorder (45739548) Insomnia due to other mental disorder (F51.05) Active confirmed Encounters Encounter Location Date Provider Diagnosis [facility] [place] [address] [address] [facility] [address] [address] 12/01/2024 Rosanne Simons Encounter for screening for depression Z13.31 ; Major depressive disorder, recurrent, mild F33.0 ; Generalized anxiety disorder F41.1 and Insomnia due to other mental disorder F51.05 [facility] [employer] [address] 03/28/2025 Rosanne Simons Encounter for screening for depression Z13.31 ; Major depressive disorder, recurrent, mild F33.0 ; Generalized anxiety disorder F41.1 and Insomnia due to other mental disorder F51.05 [facility] [employer] [address] 08/03/2025 Rosanne Simons Major depressive disorder, recurrent, mild F33.0 ; Generalized anxiety disorder F41.1 and Insomnia due to other mental disorder F51.05 [facility] [place] [address] [address] 08/23/2025 Rosanne Simons Generalized anxiety disorder F41.1 [facility] [employer] [address] 08/01/2025 Rosanne Simons [facility] [employer] [address] 08/03/2025 Rosanne Simons Assessments Encounter Date Diagnosis (ICD Code) Assessment Notes Treatment Notes Treatment Clinical Notes Section Notes 08/03/2025 Major depressive disorder, recurrent, mild (ICD-10 [...] alcohol, as this combination can be lethal. 08/23/2025 Generalized anxiety disorder (ICD-10 - F41.1) Electronic Prior Authorization was requested for ALPRAZolam 0.25 MG Tablet. Provider can order medication once approval received. 08/03/2025 Insomnia due to other mental disorder [...] Name:Geena Mcrae purnima, 09/20/2025 02:15:00 PM, [address], [facility] [address], [place], [address], Insurance Providers Payer Name Payer Address Payer Phone Subscriber Number Group Number Insured Name Patient Relationship to Insured Coverage Start Date Coverage End Date [employer] Medicare Replacemen t/Advantag e - Ppo [address] [place] [phone] [id number] NOHELIA BENNETT Self - patient is the insured Medical (General) History Surgical History Surgery Date(Month/Year) Tonsilectomy/adenoids 09/14/1960 Hysterectomy (53500) 09/14/1986 Any surgical history 09/14/2014 Bariatric operative procedure (362994272 ) 09/14/2019
--- OUTSIDE RECORDS SUMMARY | 2025-09-07 17:10 | XMS_ITS | Patient Health Record ---
Author Organization [facility] Address [address] [place] [address] Care Team Providers Care Crystal Evaluator Name Role Phone Mervat RICHMOND, Ten Unavailable Unavailable Reason For Referral No Information Problems Problem Type SNOMED Code ICD Code Onset Dates Problem Status W/U Status Risk Notes Problem Vomiting without nausea (337723090551 108) NON-INTRACTABLE VOMITING WITHOUT NAUSEA, UNSPECIFIED VOMITING TYPE (R11.11) Inactive confirmed Plan Of Treatment No Information Insurance Providers Payer Name Payer Address Payer Phone Subscriber Number Group Number Insured Name Patient Relationship to Insured Coverage Start Date Coverage End Date [employer] [address] [place] [address] [id number] NOHELIA BENNETT Self - patient is the insured
--- OUTSIDE RECORDS SUMMARY | 2025-09-07 17:10 | XMS_ITS | Clinical Summary ---
Author Organization [facility] [address] [place] [address] [place] [address] Care Team Providers Care Supply Analyst Name Role Phone Meek Blanton MD Primary Care Provider [phone] Allergies Active Allergy Reactions Criticality Noted Date [...] (11/25/2021): Added automatically from request for surgery [id number] Surgical History Surgery Date Site/Laterality Comments HYSTERECTOMY [...] on file Legal Sex Female 8:26 AM DAIRY NUTRITION CONSULTANT Gender Identity Female 11/30/2021 6:57 PM CDT Sexual Orientation Not on file Last Filed Vital Signs Vital Sign Reading Time Taken Comments Blood Pressure 141/76 07/11/2019 12:19 PM CDT Pulse 76 07/11/2019 12:19 PM CDT Temperature - - Respiratory Rate 14 07/11/2019 12:19 PM CDT Oxygen Saturation - - Inhaled Oxygen Concentration - - Weight 68 kg (150 lb) 11/22/2021 2:28 PM DAIRY NUTRITION CONSULTANT Height 163.8 cm (5' 4.5) 11/22/2021 2:28 PM DAIRY NUTRITION CONSULTANT Body Mass Index 25.35 11/22/2021 2:28 PM DAIRY NUTRITION CONSULTANT Plan of Treatment Not on file Insurance [facility] MEDICARE [facility] MEDICARE HMO/PPO [facility] [employer] MEDICARE HMO/PPO Care Teams Supply Analyst Relationship Specialty Start Date End Date Meek Blanton MD PCP - General Family Medicine 06/05/17
--- OUTSIDE RECORDS SUMMARY | 2025-09-07 17:10 | XMS_ITS | Clinical Summary ---
Author Organization [facility] Address [address] [place] [address] Care Team Providers Care Branch Manager Trainee Name Role Phone Meek Blanton MD Primary Care Provider [phone] Source Comments [facility],non-owned Affiliates and Associated Physician Practices is amultiple site organization consisting of ambulatory clinics and hospital sitesin [place], [place], [place] and [place]. This disclosure is being madepursuant to the Care Everywhere program and may not contain all information available regarding this patient. Last updated 18.[facility] Allergies Active Allergy Reactions Criticality Noted Date [...] Comments Blood Pressure 128/84 10/17/2019 1:48 PM [employer] Pulse 88 03/18/2018 3:40 PM CDT Temperature 36.4 C (97.6 F) 03/18/2018 3:40 PM CDT Respiratory Rate 22 03/18/2018 3:40 PM CDT Oxygen Saturation 98% 03/18/2018 3:40 PM CDT Inhaled Oxygen Concentration - - Weight 102.3 kg (225 lb 9.6 oz) 10/17/2019 1:48 PM [employer] Height 162.6 cm (5' 4) 10/17/2019 1:48 PM P[employer] Body Mass Index 38.72 10/17/2019 1:48 PM P[employer]ER [employer] Plan of Treatment Health Maintenance Due Date [...] 03/18/2018 5:12 PM CDT ADA Comment: The [place] [employer] recommends a fasting glucose concentration of 99 mg/dL as the upper limit of normal. ADA Comment: The [place] [employer] recommends a fasting glucose concentration [...] MD LAB - CHEMISTRY ORDERABLES Final Result [facility] [address] [place] [address], [facility] [phone] from Last 3 Months or Most Recently Relevant to Health Maintenance Insurance [employer] Care Teams Branch Manager Trainee Relationship Specialty Start Date End Date Meek Blanton MD [address] [place] [id number] PCP - General 08/08/19
--- OUTSIDE RECORDS SUMMARY | 2025-09-07 17:11 | XMS_ITS | Clinical Summary ---
Author Organization [facility] Address [address] [place] [address] Phone Care Team Providers Care Hog Operator Name Role Phone Meek Blanton MD Primary Care Provider [phone] Allergies Active Allergy Reactions Criticality Noted Date [...] on file Legal Sex Female 10:14 PM [employer] Gender Identity Not on file Sexual Orientation [...] Name:Beatriz Morgan Payer ID:[id number] (NAIC) Type:HMO Address: [place] [id number] Care Teams Hog Operator Relationship Specialty Start Date End Date Meek Blanton MD [address] [place] [address] PCP - General Family Medicine 02/08/19
[2025-09-07 17:26] LABS: Add Urine Microscopic? NO; Appearance Urine Clear (Clear); Glucose Urine UA Negative (Negative); Leukocyte Esterase Ur Negative LEU/UL (Negative); Nitrate Urine Negative (Negative); Specific Grav Ur 1.010 (1.010-1.020)
[2025-09-07] MEDS: GABAPENTIN 300 MG CAPSULE PO (18:48)
== END 2025-09-07 19:51 | disposition home or self-care (01) ==
PROVIDERS: Emergency Provider Family Medicine; PCP Family Medicine
DX: G50.0 Trigeminal neuralgia (principal); I16.0 Hypertensive urgency; E78.5 Hyperlipidemia, unspecified; Z79.899 Other long term (current) drug therapy
CPT/HCPCS: 81003; 99283; A9270; J7512